=== PATIENT | male | born 1985 | race Caucasian/White ===

== ENCOUNTER 2016-05-10 16:40 | Observation (INO) ==
[2016-05-10] MEDS ORDERED: *HR* LORazepam 2 MG/ML VIAL ONE (16:51)
[2016-05-10] MEDS ORDERED: *HR* LORazepam 2 MG/ML VIAL IM ONE (16:55)
[2016-05-10 17:34] LABS: Basophils # 0.1 K/mcL (0.0-0.2); Basophils % 0.4 %; Eosinophils # 0.2 K/mcL (0.0-0.6); Hematocrit 50.4 % (37.5-50.1); Hemoglobin 15.3 g/dL (12.9-16.9); Immature Granulocytes % 0.7 % (0-4); Lymphocytes % 18.4 %; Mean Corpuscular HGB Conc 30.4 g/dL (31.6-35.5); Mean Corpuscular Hemoglobin 28.7 pg (28.0-33.3); Mean Corpuscular Volume 94.6 fL (83.0-100.0); Mean Platelet Volume 9.5 fL (9.4-12.4); Monocytes # 1.3 K/mcL (0.0-1.3); Monocytes % 7.8 %; Neutrophils # 11.6 K/mcL (1.6-8.9); Platelet Count 378 K/mcL (140-400); Red Blood Count 5.33 M/mcL (4.19-5.50); Red Cell Distribution Width 13.8 % (11.5-14.5); Segmented Neutrophils % 71.7 %
[2016-05-10] MEDS ORDERED: 0.9 % Sodium Chloride 1,000 ML IVC ONE (17:34)
[2016-05-10] MEDS ORDERED: Ketorolac 15 MG/ML VIAL IVP ONE ×2 (17:34→20:49)
[2016-05-10] MEDS ORDERED: Metoclopramide 10 MG/2 ML VIAL IVP ONE (17:34)
[2016-05-10 17:50] LABS: Alanine Aminotransferase 17 Units/L (0-55); Albumin 4.2 g/dL (3.5-5.0); Alkaline Phosphatase 115 Units/L (38-126); Aspartate Amino Transferase 15 Units/L (5-34); BUN/Creatinine Ratio 9 (6-26); Bilirubin,Total 0.3 mg/dL (0.2-1.2); Blood Urea Nitrogen 10 mg/dL (8-26); Calcium 9.3 mg/dL (8.6-10.8); Chloride 103 mEq/L (98-109); Globulin 4.2 g/dL (2.4-3.5); Glucose 121 mg/dL (70-99); Osmolality,Calculated 286 (280-300); Phosphorous 3.7 mg/dL (2.3-4.7); Potassium 4.5 mEq/L (3.5-4.5); Sodium 138 mEq/L (136-145); Total Protein 8.4 g/dL (6.0-8.3); eGFR For African Americans > 60 (> 60); eGFR For Non-African Americans > 60 (> 60)
--- NOTE | 2016-05-10 17:50 | Emergency Department Note ---
Disposition Clinical Impression: Status epilepticus, Lactic acidosis Disposition: Admitted As Inpatient Condition: Fair Referrals: NO,PCP [Primary Care Provider] - Forms: ED Satisfaction Letter Time of Disposition: 19:26 Seizure HPI - General Chief Complaint: ED Seizure Stated Complaint: seizure Source: EMS Limitations: no limitations Nursing Notes Reviewed: Yes Vital Signs Reviewed: Yes - History of Present Illness HPI Narrative: Patient is a 30-year-old male who presents to [facility] [place] ED with a chief complaint of seizure. Family states his seizure lasted about 15- 20 minutes. They did not give him any medication. He has a history of traumatic brain injury in 2012 and epilepsy from this. Family states he has not had a seizure in over 4 months now. He has been particularly stressed out due to recent friend who . Patient was back to his baseline when he arrived to the emergency department. He then had another generalized seizure that lasted approximately 45 minutes that was aborted with 2 mg IM Ativan. Pt Subjective Complaint: seizure Onset (ago): Just SMASHER Description of Episode: tonic-clonic movement Duration of Episode: 20 -: minutes(s) Witnessed: yes - by bystander Associated trauma secondary to event: No Seizure History: known seizure disorder Place: home Possible Precipitating Event: stress Associated symptoms: Reports: diaphoresis. Denies: chest pain, confusion, cough , fever/chills, shortness of breath, weakness Treatments prior to arrival: none - Related Data Home Medications Medication Instructions Recorded Confirmed Paroxetine HCl [Paroxetine] 40 mg PO DAILY 09/03/15 12/31/15 Sumatriptan 1 spray NS AD PRN 09/03/15 12/31/15 Topiramate [Topamax] 250 mg PO DAILY 09/03/15 12/31/15 Ibuprofen [Motrin] 800 mg PO Q8HR PRN 12/31/15 12/31/15 LORazepam [Ativan] 1 mg PO TID PRN 12/31/15 12/31/15 LevETIRAcetam [Levetiracetam] 375 mg PO BID 12/31/15 12/31/15 Methylphenidate HCl [Ritalin LA] 20 mg PO QAM 12/31/15 12/31/15 Ondansetron ODT [Zofran ODT] 4 mg SL Q6HR PRN 12/31/15 12/31/15 Oxycodone HCl/Acetaminophen 1 each PO Q6H PRN 12/31/15 12/31/15 [Percocet 10-325 mg Tablet] Paliperidone [Paliperidone ER] 3 mg PO DAILY 12/31/15 12/31/15 Previous Rx's Medication Instructions Recorded Fentanyl 25 mg TP Q72H #3 patch.td72 09/04/15 Lisinopril [Zestril] 10 mg PO DAILY 30 Days 09/04/15 Metoprolol [Lopressor] 50 mg PO BID 30 Days 09/04/15 Pantoprazole Sodium [Protonix] 40 mg PO DAILY #30 tablet. 03/11/16 Sucralfate [Carafate] 1 gm PO QIDAC #60 tablet 03/11/16 Allergies Allergy/AdvReac Type Severity Reaction Status Date / Time diphenhydramine Allergy Hives Verified 03/11/16 16:30 [From Benadryl] All systems ED: reviewed and negative except as stated. Past Medical History - Past Medical History Attestation: Yes The following information was validated with the patient. Source: patient Medical history: Reports: migraine, seizures, other Surgical history: Reports: colectomy Psychiatric history: Reports: ADHD, depression - Social History Smoking Status: Current every day smoker Smokeless Tobacco Status: No Alcohol use: Reports: none Drug use: Reports: none, marijuana, prescription drug abuse Physical Exam - General Limitations: no limitations General appearance: alert - Head Head exam: atraumatic, normocephalic, normal inspection - Eye Eye exam: Present: normal appearance, PERRL, EOMI - ENT ENT exam: normal exam, normal oropharynx, mucous membranes moist - Neck Neck exam: Present: normal inspection - Chest Chest inspection: Present: normal inspection, symmetric chest wall rise - Cardiovascular Cardiovascular exam: Present: normal rhythm, tachycardia - Abdominal Exam Abdominal exam: Present: soft, Non-Tender. Absent: tenderness, distention, guarding, rebound, rigidity - Extremities Exam Extremities exam: Present: normal inspection, full ROM. Absent: tenderness, pedal edema - Back Exam Back exam: Present: normal inspection, full ROM. Absent: tenderness - Neurological Exam Neurological exam: Present: alert, oriented X3, CN II-XII intact. Absent: motor sensory deficit - Psychiatric Psychiatric exam: Present: normal affect, normal mood - Skin Skin exam: Present: warm, dry, intact, normal color Course Course Narrative: Patient seen and examined. Generalized seizure. Second episode was witnessed in the emergency department. Based on the duration of the first seizure, will workup as status epilepticus. CT head, labs ordered. We will touch base with neurology and likely admit. Patient currently taking aptiom 200 mg BID. - Reevaluation(s) Reevaluation #1: Lab work shows a CO2 of 7, lactic acid of 4.5. We will admit for status epilepticus, lactic acidosis. I spoke with neurologist Dr. Loera who recommends giving him a dose of his home Aptiom 200mg though I called pharmacy and they do not have this available here. We will have to have the family bring in from home given him one. He also recommended 0.5 mg Ativan twice a day , can give patient one this evening. He will consult on the patient. I spoke with hospitalist Carolina English who has accepted patient for admission. Time: 19:25 Vital Signs Temperature 98.7 F 05/10/16 16:41 Pulse Rate 104 05/10/16 16:41 Respiratory Rate 20 05/10/16 16:41 Blood Pressure 133/76 05/10/16 16:41 O2 Sat by Pulse Oximetry 97 05/10/16 16:41 Temperature 98.7 F 05/10/16 16:41 Pulse Rate 89 05/10/16 19:16 Respiratory Rate 18 05/10/16 19:16 Blood Pressure 124/80 05/10/16 19:16 O2 Sat by Pulse Oximetry 100 05/10/16 19:16 Oxygen Delivery Oxygen Delivery Room Air Seizure - Medical Records Medical records reviewed: Yes I reviewed the patient's medical records. - Lab Data Lab results reviewed: Yes I reviewed the patient's lab results. Result diagrams: 05/10/16 17:26 05/10/16 17:26 Lab Results 05/10/16 05/10/16 05/10/16 Range/Units 17:26 17:26 18:11 WBC 16.2 H (4.3-11.1) K/mcL RBC 5.33 (4.19-5.50) M/mcL Hgb 15.3 (12.9-16.9) g/dL Hct 50.4 H (37.5-50.1) % MCV 94.6 (83.0-100.0) fL MCH 28.7 (28.0-33.3) pg MCHC 30.4 L (31.6-35.5) g/dL RDW 13.8 (11.5-14.5) % Plt Count 378 (140-400) K/mcL MPV 9.5 (9.4-12.4) fL Immature Gran % 0.7 (0-4) % Seg Neutrophils % 71.7 % Lymphocytes % 18.4 % Monocytes % 7.8 % Eosinophils % 1.0 % Basophils % 0.4 % Neutrophils # 11.6 H (1.6-8.9) K/mcL Lymphocytes # 3.0 (0.6-4.6) K/mcL Monocytes # 1.3 (0.0-1.3) K/mcL Eosinophils # 0.2 (0.0-0.6) K/mcL Basophils # 0.1 (0.0-0.2) K/mcL Sodium 138 (136-145) mEq/L Potassium 4.5 (3.5-4.5) mEq/L Chloride 103 (98-109) mEq/L Carbon Dioxide 7 L* (19-29) mEq/L BUN 10 (8-26) mg/dL Creatinine 1.13 (0.72-1.25) mg/dL Est GFR ( Amer) > 60 (> 60) Est GFR (Non-Af Amer) > 60 (> 60) BUN/Creatinine Ratio 9 (6-26) Glucose 121 H (70-99) mg/dL Calculated Osmolality 286 (280-300) Lactic Acid 4.1 H* (0.5-2.2) mmol/L Calcium 9.3 (8.6-10.8) mg/dL Phosphorus 3.7 (2.3-4.7) mg/dL Magnesium 3.0 H (1.6-2.6) mg/dL Total Bilirubin 0.3 (0.2-1.2) mg/dL AST 15 (5-34) Units/L ALT 17 (0-55) Units/L Alkaline Phosphatase 115 (38-126) Units/L Creatine Kinase 155 (30-200) Units/L Serum Total Protein 8.4 H (6.0-8.3) g/dL Albumin 4.2 (3.5-5.0) g/dL Globulin 4.2 H (2.4-3.5) g/dL Albumin/Globulin Ratio 1.0 L (1.1-2.2) - Radiology Data Radiology results reviewed: Yes I reviewed the patient's radiology results. Head CT 05/10/16 16:55 IMPRESSION: No acute intracranial abnormality. D/ / Osman Simms MD / Osman Simms MD Interpreting Provider: Osman Simms MD Chest X-Ray 05/10/16 16:57 IMPRESSION: No acute process. D/ / Dorie Garcia MD / Dorie Garcia MD Interpreting Provider: Dorie Garcia MD Critical Care Time Critical Care Time: Yes Total Critical Care Time: 35 Attestation: Critical care time for this patient 35 minutes to manage status epilepticus. Attestation Statement - Attestation Attestation: Patient was seen with resident physician. I reviewed the history, physical, assessment and plan, and agree with the findings. I also personally evaluated this patient and had [id number] time with this patient. 30-year-old male who presents to the emergency department with chief complaint seizures. Patient has a history of seizure disorder, and is known to have tonic-clonic and it sounds seizures. Today he had a tonic-clonic seizure lasting approximately 15 minutes before resolved. There is a prolonged postictal state. Patient also had a seizure upon arrival to the emergency department which lasted 3-4 minutes and was witnessed by staff. After conclusion of seizure patient had a headache. Patient denies fevers or chills or other complaints. These are typical seizures from a side from the length which are significantly longer than they have been in the past. On examination ENT is unremarkable. Heart tachycardic regular rhythm lungs clear. Abdomen soft and nontender extremities unremarkable. Patient was actively seizing on initial evaluation, after completion patient felt significantly better and he did have a prolonged postictal period but mental status eventually returned to normal. He was given 2 mg of IM Ativan and the middle of the seizure. IV was then placed and fluids administered and labs were checked. We will likely admit the patient to the hospital service because of status epilepticus with a seizure lasting 15 minutes ,additionally patient was found to be acidotic. We did discuss this case with neurology prior to admission. They requested that we administer a dose of his current medication. We contacted pharmacy to try to arrange this. We also contacted the hospitalist service to arrange for admission. I agree with the resident physician assessment and plan. Critical care time for this patient 35 minutes.
[2016-05-10 17:57] LABS: Carbon Dioxide 7 mEq/L (19-29)
[2016-05-10 18:45] LABS: Creatine Kinase 155 Units/L (30-200)
[2016-05-10] MEDS ORDERED: Acetaminophen 325 MG TABLET PO ONE (18:46)
[2016-05-10] MEDS ORDERED: Ondansetron 4 MG/2 ML VIAL IVP PRN (20:30)
[2016-05-10] MEDS ORDERED: Naloxone 0.4 MG/ML INJ IVP PRN (20:30)
[2016-05-10] MEDS ORDERED: *HR* LORazepam 2 MG/ML VIAL IVP PRN ×2 (20:37→23:48)
[2016-05-10] MEDS ORDERED: *HR* OxyCODONE/APAP 10/325 TABLET PO PRN (20:50)
[2016-05-10] MEDS ORDERED: *HR* FentaNYL PATCH 25 MCG PATCH TD SCH (21:00)
[2016-05-10 21:28] LABS: Bilirubin,Urine Negative (Negative); Blood,Urine Trace (Negative); Clarity,Urine Cloudy (Clear); Color,Urine Yellow (Yellow); Glucose,Urine (UA) Normal (Normal); Ketones,Urine Negative (Negative); Leukocyte Esterase,Urine Negative (Negative); Nitrite,Urine Negative (Negative); PH,Urine 5.5 pH Units (5.0-8.0); Protein,Urine 30 mg/dL (Neg-Trace); Specific Gravity,Urine 1.022 (1.010-1.025); Urobilinogen,Urine Normal (Normal)
[2016-05-10 21:30] LABS: Bacteria,Urine None Seen per hpf (None-Few); Hyaline Casts,Urine Few per lpf (None-Few); RBC,Urine 0-3 per hpf (0-3); Squamous Epithelial Cell,Urine Many per lpf (None-Few); WBC,Urine 0-3 per hpf (0-3)
[2016-05-10 21:34] LABS: Amphetamine Screen,Urine Negative ng/mL (Cutoff=1000); Barbiturate Screen,Urine Negative ng/mL (Cutoff=200); Benzodiazepines Screen,Urine Negative ng/mL (Cutoff=200); Cannabinoid Screen,Urine Positive ng/mL (Cutoff = 50); Cocaine Screen,Urine Negative ng/mL (Cutoff= 300); Opiate Screen,Urine Negative ng/mL (Cutoff=300); Phencyclidine Screen,Urine Negative ng/mL (Cutoff=25)
[2016-05-10] MEDS ORDERED: Water for inj. (sterile) 10 ML IV ONE (21:38)
[2016-05-10] MEDS: Sucralfate 1 GM TABLET PO SCH (21:45)
[2016-05-10] MEDS: 0.9 % Sodium Chloride 1,000 ML IVC SCH (21:45)
[2016-05-10] MEDS: ESLICARBAZEPINE PO SCH (21:50)
[2016-05-10] MEDS: *HR* LORazepam 2 MG/ML VIAL IVP SCH (21:50)
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
[2016-05-11 01:12] LABS: Basophils % 0.2 %; Eosinophils # 0.1 K/mcL (0.0-0.6); Eosinophils % 0.5 %; Hematocrit 40.5 % (37.5-50.1); Immature Granulocytes % 0.4 % (0-4); Lymphocytes # 3.6 K/mcL (0.6-4.6); Lymphocytes % 25.6 %; Mean Corpuscular HGB Conc 32.3 g/dL (31.6-35.5); Mean Corpuscular Hemoglobin 28.9 pg (28.0-33.3); Mean Corpuscular Volume 89.2 fL (83.0-100.0); Mean Platelet Volume 9.2 fL (9.4-12.4); Monocytes # 1.2 K/mcL (0.0-1.3); Monocytes % 8.8 %; Platelet Count 269 K/mcL (140-400); Red Blood Count 4.54 M/mcL (4.19-5.50); Segmented Neutrophils % 64.5 %
[2016-05-11 01:26] LABS: Hemoglobin 13.1 g/dL (12.9-16.9)
[2016-05-11 01:28] LABS: BUN/Creatinine Ratio 9 (6-26); Blood Urea Nitrogen 8 mg/dL (8-26); Calcium 8.2 mg/dL (8.6-10.8); Carbon Dioxide 24 mEq/L (19-29); Chloride 108 mEq/L (98-109); Glucose 82 mg/dL (70-99); Osmolality,Calculated 285 (280-300); Potassium 4.2 mEq/L (3.5-4.5); Sodium 139 mEq/L (136-145); eGFR For African Americans > 60 (> 60); eGFR For Non-African Americans > 60 (> 60)
[2016-05-11 05:04] LABS: BUN/Creatinine Ratio 9 (6-26); Blood Urea Nitrogen 7 mg/dL (8-26); Calcium 7.7 mg/dL (8.6-10.8); Carbon Dioxide 22 mEq/L (19-29); Chloride 109 mEq/L (98-109); Glucose 88 mg/dL (70-99); Osmolality,Calculated 285 (280-300); Potassium 4.1 mEq/L (3.5-4.5); Sodium 139 mEq/L (136-145); eGFR For African Americans > 60 (> 60); eGFR For Non-African Americans > 60 (> 60)
[2016-05-11] MEDS: 0.9 % Sodium Chloride 1,000 ML IVC SCH (06:15)
[2016-05-11] MEDS ORDERED: SUMATRIPTAN NS PRN (06:55)
[2016-05-11] MEDS ORDERED: *HR* Enoxaparin 40 MG/0.4 ML SYRINGE SQ SCH (07:00)
[2016-05-11 07:09] VITALS: BP 114/70
[2016-05-11] MEDS: *HR* LORazepam 2 MG/ML VIAL IVP SCH (08:13)
[2016-05-11] MEDS: Sucralfate 1 GM TABLET PO SCH (08:13)
[2016-05-11] MEDS: ESLICARBAZEPINE PO SCH (08:14)
[2016-05-11] MEDS ORDERED: Methylphenidate HCl 10 MG TABLET PO SCH (09:00)
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
--- NOTE | 2016-05-11 10:37 | Discharge Summary ---
Date of Encounter: 05/11/16 Time of Encounter: 10:34 - Discharge Diagnosis (1) Tobacco use Priority: Secondary Status: Acute (2) Breakthrough seizure Priority: Primary Status: Acute (3) Generalized seizure Priority: Secondary Status: Acute (4) Lactic acidosis Priority: Secondary Status: Acute (5) Metabolic acidosis Priority: Secondary Status: Acute (6) Depression Priority: Secondary Status: Acute Qualifiers: Depression Type: reactive depression Qualified Code(s): F32.9 - Major depressive disorder, single episode, unspecified (7) History of chronic pain Priority: Secondary Status: Acute - Discharge Medications Prescriptions: Paroxetine HCl [Paroxetine] 40 mg PO DAILY #30 tablet Home Medications: Sumatriptan 1 spray NS AD PRN 09/03/15 [History] Fentanyl 25 mg TP Q72H #3 patch.td72 09/04/15 [Rx] Lisinopril [Zestril] 10 mg PO DAILY 30 Days 09/04/15 [Rx] Metoprolol [Lopressor] 50 mg PO BID 30 Days 09/04/15 [Rx] LORazepam [Ativan] 1 mg PO BID PRN 12/31/15 [History] Methylphenidate HCl [Ritalin LA] 20 mg PO QAM 12/31/15 [History] Oxycodone HCl/Acetaminophen [Percocet 10-325 mg Tablet] 1 each PO Q6H PRN [History] Doxepin HCl 75 mg PO DAILY 05/11/16 [History] Eslicarbazepine Acetate [Aptiom] 200 mg PO DAILY 05/11/16 [History] Multivitamin [Tab-A-Gustavo] 1 tab PO DAILY 05/11/16 [History] Paliperidone [Paliperidone ER] 6 mg PO DAILY 05/11/16 [History] Paroxetine HCl [Paroxetine] 40 mg PO DAILY #30 tablet 05/11/16 [Rx] Allergies/Adverse Reactions: Allergies diphenhydramine [From Benadryl] Allergy (Verified 05/11/16 09:37) Hives Date of admission: 05/10/16 19:32 Primary care physician: PCP NO Consults: 05/10/16 20:42 Consult to Neurology [CONS] Routine Consulting Provider: Neurology [facility] Reason for Consult: 30M with history of seizure disorder, follows with Dr. Loera, here with status epilepticus Call Completed: Yes - Patient Status Disposition: Home, Self-Care Condition: Fair Functional capacity at discharge: independent ambulation Overall status at discharge: patient is back to baseline - Discharge Instructions Follow Up With: LOLI,PCP [Primary Care Provider] - Marion Loera MD [Partnered Physician] - Additional Instructions: Please get an appointment with a psychiatrist to address depression and anxiety as soon as possible. - Diet and Activity Activity: increase activity as tolerated Diet: regular diet Interval History: Patient has been seizure-free overnight. He is asymptomatic. He reports being depressed. I have discussed the case with Dr. Loera who recommended starting antidepressant and continuing antiseizure medication per his prior regimen. The patient was taking Paxil in the past, and reports an adverse reaction to Remeron. I will prescribe Paxil and will discharge him home. I have advised smoking cessation and refraining from using marijuana and I instructed him to get him close appointment with a neurologist and follow-up with psychiatrist for his depression which likely contributed to his breakthrough seizure. Hospital course: Mr. Villarreal is a 30 year old male with history of seizure disorder who presented to the hospital brought by EMS for generalized seizure. While in the emergency department he had a recurrent seizure which was treated with IV Ativan. His workup revealed lactic acidosis. The CT of the head showed no acute findings. He had no evidence of infection. Urine toxicology was positive for marijuana. He was admitted to the medical service. Neurology was consulted and recommended continuing his current seizure medication and no further inpatient workup. He does report some increased emotional stressors and he has suffered with a viral URI both which likely caused him to have a breakthrough seizure. He was advised to follow-up with psychiatry and to continue Paxil. - Time Spent with Patient Total time spent providing and/or coordinating discharge services: - Constitutional Vitals: Temp Pulse Resp BP Pulse Ox 98.0 F 69 16 114/70 96 05/11/16 07:06 05/11/16 07:06 05/11/16 07:06 05/11/16 07:06 05/11/16 07:06 General appearance: Present: A&O X 3, pleasant, no acute distress - Respiratory Respiratory exam: Present: CTAB. Absent: accessory muscle use, rales, rhonchi, wheezes - Cardiovascular Cardiovascular exam: Present: RRR, +S1, +S2. Absent: diastolic murmur, gallop, rubs, systolic murmur
--- NOTE | 2016-05-11 15:38 | Electrocardiograph Report ---
[address] [place], [place] [address] Test Date: 2016-05-10 Pat Name: Lenny Villarreal Department: 105 Room: 3B32 Gender: M Ad Operations Specialist: : [id number] Requested By: Kerline Coates Order Number: [id number] Reading MD: Jag Aguilar MD Measurements Intervals [place] Rate: 103 P: -60 IL: 180 QRS: 21 QRSD: 87 T: 54 QT: 326 QTc: 385 Interpretive Statements ECTOPIC ATRIAL TACHYCARDIA LEFT ATRIAL ENLARGEMENT Electronically Signed On 05-11-2016 15:36:36 EDT by Jag Aguilar MD
== END 2016-05-11 11:35 | disposition home or self-care (01) ==
LOC: EMEROO 16:40 → 3BNU 16:40 → SUATTDRO 19:32 → 3BNU 20:04
PROVIDERS: ADMIT Nurse Practitioner Acute Care; ATTEND Internal Medicine

== ENCOUNTER 2016-10-04 12:00 | Inpatient (IN) ==
[2016-10-04] MEDS ORDERED: *HR* LORazepam 2 MG/ML VIAL ONE (12:36)
[2016-10-04] MEDS ORDERED: levETIRAcetam 1,000 MG in 0.9 % Sodium Chloride 100 ML IVPB ONE (12:46)
[2016-10-04] MEDS ORDERED: 0.9 % Sodium Chloride 1,000 ML IVC ONE (12:48)
[2016-10-04] MEDS ORDERED: Ondansetron 4 MG/2 ML VIAL IVP ONE (12:48)
[2016-10-04 13:12] LABS: Basophils % 0.2 %; Eosinophils % 0.1 %; Hematocrit 55.3 % (37.5-50.1); Hemoglobin 16.8 g/dL (12.9-16.9); Immature Granulocytes % 0.4 % (0-4); Immature Platelets 3.6 % (1.1-6.1); Lymphocytes # 2.4 K/mcL (0.6-4.6); Mean Corpuscular HGB Conc 30.4 g/dL (31.6-35.5); Mean Corpuscular Hemoglobin 26.8 pg (28.0-33.3); Mean Corpuscular Volume 88.3 fL (83.0-100.0); Mean Platelet Volume 10.1 fL (9.4-12.4); Monocytes # 1.8 K/mcL (0.0-1.3); Monocytes % 11.2 %; Neutrophils # 11.6 K/mcL (1.6-8.9); Platelet Count 343 K/mcL (140-400); Red Blood Count 6.26 M/mcL (4.19-5.50); Red Cell Distribution Width 14.6 % (11.5-14.5); Segmented Neutrophils % 73.1 %
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
[2016-10-04 13:25] LABS: BUN/Creatinine Ratio 15 (6-26); Blood Urea Nitrogen 20 mg/dL (8-26); Calcium 10.7 mg/dL (8.6-10.8); Chloride 100 mEq/L (98-109); Glucose 142 mg/dL (70-99); Osmolality,Calculated 301 (280-300); Potassium 3.7 mEq/L (3.5-4.5); Sodium 143 mEq/L (136-145); eGFR For African Americans > 60 (> 60); eGFR For Non-African Americans > 60 (> 60)
[2016-10-04 13:26] LABS: Albumin 5.1 g/dL (3.5-5.0); Bilirubin,Indirect 0.5 mg/dL (0.0-1.2); Bilirubin,Total 0.8 mg/dL (0.2-1.2); Globulin 4.9 g/dL (2.4-3.5)
[2016-10-04] MEDS ORDERED: *HR* LORazepam 2 MG/ML VIAL IM ONE (13:30)
[2016-10-04 13:31] LABS: Bilirubin,Direct 0.3 mg/dL (0.0-0.5)
[2016-10-04 13:35] LABS: Carbon Dioxide 6 mEq/L (19-29)
[2016-10-04] MEDS ORDERED: *HR* Morphine 2 MG/ML SYRINGE IVP ONE ×2 (14:15→18:47)
[2016-10-04 15:54] LABS: Bilirubin,Urine Negative (Negative); Blood,Urine Trace (Negative); Clarity,Urine Clear (Clear); Color,Urine Yellow (Yellow); Glucose,Urine (UA) Normal (Normal); Ketones,Urine >=160 mg/dL (Negative); Leukocyte Esterase,Urine Negative (Negative); Nitrite,Urine Negative (Negative); Protein,Urine 100 mg/dL (Neg-Trace); Specific Gravity,Urine > 1.030 (1.010-1.025); Urobilinogen,Urine Normal (Normal)
[2016-10-04 15:55] LABS: Bacteria,Urine None Seen per hpf (None-Few); Hyaline Casts,Urine None Seen per lpf (None-Few); Squamous Epithelial Cell,Urine Many per lpf (None-Few)
[2016-10-04 16:01] LABS: Amphetamine Screen,Urine Positive ng/mL (Cutoff=1000); Barbiturate Screen,Urine Negative ng/mL (Cutoff=200); Benzodiazepines Screen,Urine Positive ng/mL (Cutoff=200); Cannabinoid Screen,Urine Positive ng/mL (Cutoff = 50); Cocaine Screen,Urine Negative ng/mL (Cutoff= 300); Opiate Screen,Urine Positive ng/mL (Cutoff=300); Phencyclidine Screen,Urine Negative ng/mL (Cutoff=25)
[2016-10-04 16:10] LABS: Sperm,Urine Present
[2016-10-04] MEDS ORDERED: *HR* LORazepam 2 MG/ML VIAL IVP PRN (17:36)
[2016-10-04] MEDS ORDERED: SUMATRIPTAN NS PRN (17:37)
--- NOTE | 2016-10-04 19:28 | Internal Med History&Physical ---
Date of Encounter: 10/04/16 Time of Encounter: 19:24 Assessment and Plan (1) Generalized seizure Current visit: No Status: Acute due to his inability to take his keppra the past 3 days. Patient has been loaded with keppra 1 gm in the ED. We will start the patient on Keppra 750 mg intravenously to 12 hours. Ativan is needed PRN for seizures. Telemetry Monitoring (2) Metabolic acidosis Current visit: No Status: Resolved due to lactic acidosis related to seizure (3) Nausea and vomiting Current visit: Yes Status: Acute Possibly due to gastritis or peptic ulcer disease. We will start the patient on Protonix intravenous. gastroenterology evaluation for EGD Qualifiers: Vomiting type: unspecified Vomiting Intractability: non-intractable Qualified Code(s): R11.2 - Nausea with vomiting, unspecified Internal Medicine - H&P: HPI Chief complaint: vomiting History of present illness: Mr. Villarreal is a 30 year old male with a history of traumatic brain injury with history of seizures last seizure was 2 months ago grand mal seizure on Keppra presents emergency room today with a complete of vomiting. For the past 3 days patient has been having intractable vomiting is unable to keep food down even his medications. He was having occasional small amounts of blood in vomitus. While in the emergency room patient had a grand mal seizure thought to be related to inability to take scupper the past 3 days. Patient started waking up during my interview. he was able to give history. Patient takes nonsteroidal anti-inflammatory drugs intermittently for headaches. Denies any Melena hematochezia. Denies any fevers of chills. No confusion. Past Med Surg Social Fam HX - Past Medical History Medical history: hypertension, migraine, seizures, other Psychiatric history: anxiety, ADHD, depression - Past Surgical History Surgical History: appendectomy, colectomy, orthopedic, other - Social History Smoking Status: Current every day smoker Packs per day: 1 Smokeless Tobacco Status: No Alcohol use: none Drug use: marijuana, prescription drug abuse - Family History Father Adopted: No Living Status: Still Living Hx Family Cardiac Disorders: Yes Mother Adopted: No Living Status: Still Living Hx Family GI Disorders: Yes (LIVER DISEASE) Hx Family Endocrine Disorder: Yes (DM TYPE 2) Internal Medicine - H&P: Meds SUMAtriptan [Sumatriptan] 1 spray NS AD PRN 09/03/15 [History] Lisinopril [Zestril] 10 mg PO DAILY 30 Days 09/04/15 [Rx] Metoprolol [Lopressor] 50 mg PO BID 30 Days 09/04/15 [Rx] Doxepin HCl 75 mg PO DAILY 05/11/16 [History] Eslicarbazepine Acetate [Aptiom] 200 mg PO DAILY 05/11/16 [History] Multivitamin [Tab-A-Gustavo] 1 tab PO DAILY 05/11/16 [History] Paliperidone [Paliperidone ER] 6 mg PO DAILY 05/11/16 [History] LevETIRAcetam [Keppra] 750 mg PO BID 10/04/16 [History] Allergies diphenhydramine [From Benadryl] Allergy (Verified 10/04/16 12:04) Hives All Systems PM: A 10-system review of systems was performed and is negative for pertinent findings except as documented above in the HPI. Review of systems: 10 point review of systems is negative except for HPI - Constitutional Vitals: Temp Pulse Resp BP Pulse Ox 98.4 F 85 17 139/88 99 10/04/16 12:02 10/04/16 17:16 10/04/16 17:16 10/04/16 17:16 10/04/16 17:28 Exam: Gen.: patient is sleepy oriented times 3 cardiac: normal S1 S2 no additional sounds or murmurs chest: no active wheezing or bronchial breathing abdomen soft nontender nondistended normal bowel sounds lower extremity no swelling. Neuro: no new focal deficits Internal Med - H&P Results - Labs CBC & Chem 7: 10/04/16 13:03 10/04/16 13:03
[2016-10-04] MEDS: Pantoprazole 40 MG VIAL IVP SCH (19:54)
[2016-10-04] MEDS: 0.9 % Sodium Chloride 1,000 ML IVC SCH (19:55)
[2016-10-04] MEDS: levETIRAcetam 750 MG in 0.9 % Sodium Chloride 100 ML IVPB SCH (20:55)
[2016-10-04] MEDS: Acetaminophen/Aspirin/Caffeine TABLET PO PRN (21:57)
[2016-10-05] MEDS: *HR* Morphine 2 MG/ML SYRINGE IVP PRN ×5 (00:14→21:11)
[2016-10-05] MEDS: 0.9 % Sodium Chloride 1,000 ML IVC SCH ×3 (04:05→13:00)
[2016-10-05] MEDS: Ondansetron 4 MG/2 ML VIAL IVP PRN ×2 (04:09→21:49)
[2016-10-05 04:17] LABS: BUN/Creatinine Ratio 20 (6-26); Blood Urea Nitrogen 16 mg/dL (8-26); Chloride 103 mEq/L (98-109); Glucose 100 mg/dL (70-99); Magnesium 1.9 mg/dL (1.6-2.6); Osmolality,Calculated 281 (280-300); Potassium 3.3 mEq/L (3.5-4.5); eGFR For African Americans > 60 (> 60); eGFR For Non-African Americans > 60 (> 60)
[2016-10-05 06:06] LABS: Basophils % 0.2 %; Eosinophils % 0.3 %; Hematocrit 40.2 % (37.5-50.1); Immature Granulocytes % 0.3 % (0-4); Immature Platelets 3.5 % (1.1-6.1); Lymphocytes % 29.8 %; Mean Corpuscular HGB Conc 32.3 g/dL (31.6-35.5); Mean Corpuscular Hemoglobin 26.8 pg (28.0-33.3); Mean Corpuscular Volume 82.9 fL (83.0-100.0); Mean Platelet Volume 9.9 fL (9.4-12.4); Monocytes # 1.5 K/mcL (0.0-1.3); Monocytes % 15.2 %; Neutrophils # 5.4 K/mcL (1.6-8.9); Platelet Count 262 K/mcL (140-400); Red Blood Count 4.85 M/mcL (4.19-5.50); Red Cell Distribution Width 14.4 % (11.5-14.5); Segmented Neutrophils % 54.2 %
[2016-10-05 06:16] LABS: Sodium 135 mEq/L (136-145)
[2016-10-05 06:17] LABS: Calcium 8.6 mg/dL (8.6-10.8); Carbon Dioxide 23 mEq/L (19-29)
[2016-10-05] MEDS: Pantoprazole 40 MG VIAL IVP SCH (09:42)
[2016-10-05] MEDS: Multivit/Ca/Min/Fe/FA 1 TAB TABLET PO SCH (09:43)
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
[2016-10-05] MEDS: levETIRAcetam 750 MG in 0.9 % Sodium Chloride 100 ML IVPB SCH ×2 (11:40→21:12)
[2016-10-05] MEDS: Acetaminophen/Aspirin/Caffeine TABLET PO PRN (11:46)
--- NOTE | 2016-10-05 13:31 | Internal Med Progress Note ---
<Charanjit Alonso - Last Filed: 10/05/16 13:29> Date of Encounter: 10/05/16 Time of Encounter: 13:29 - Assessment and plan (1) Generalized seizure Current Visit: No Status: Acute Assessment and plan: Likely related to the patient's inability to take in the setting of continuous nausea and vomiting. Continue IV Keppra until the patient is able to tolerate by mouth medications. No seizure activity since admission. Continue seizure precautions. (2) Nausea and vomiting Current Visit: Yes Status: Acute Assessment and plan: Possibly related to cyclical vomiting syndrome in the setting of marijuana use. Patient does state that he has had some blood in his vomit however it is unclear whether this is coming from his GI tract or could possibly be some blood from his tongue biting or seizure. Gastroenterology has been consulted and will evaluate for possible EGD. Continue daily PPI. Qualifiers: Vomiting type: unspecified Vomiting Intractability: non-intractable Qualified Code(s): R11.2 - Nausea with vomiting, unspecified (3) Abdominal pain Current Visit: Yes Status: Acute Assessment and plan: Likely related to continual vomiting. Appears to be musculoskeletal in nature. CT abdomen and pelvis showed no concerning etiology for left upper quadrant abdominal pain. When necessary morphine for abdominal pain. Continue to monitor. Qualifiers: Abdominal location: epigastric Qualified Code(s): R10.13 - Epigastric pain - Subjective Interval history: Patient seen and examined at bedside. Patient reports nausea and vomiting since admission. He states he is able to keep down sips of water but nothing else. He reports diffuse abdominal pain that is worse in the left upper quadrant. Denies fever, chills, chest pain, shortness of breath. No seizure activity noted since admission. - Constitutional Vitals: Temp Pulse Resp BP Pulse Ox 98.2 F 63 18 125/85 100 10/05/16 11:21 10/05/16 11:21 10/05/16 11:21 10/05/16 11:21 10/05/16 11:21 General appearance: Present: A&O X 3, answers questions appropriately - Respiratory Respiratory exam: Present: CTAB. Absent: rales, rhonchi, wheezes - Cardiovascular Cardiovascular exam: Present: RRR. Absent: gallop, rubs, systolic murmur - GI/Abdominal GI/Abdominal exam: Present: normal bowel sounds, soft, tenderness (diffuse, worse in LUQ), no peritoneal signs. Absent: distended - Extremities Exam Extremities exam: Present: warm. Absent: pedal edema, tenderness - Neurological Exam Neurological exam: Present: alert, CN II-XII intact, oriented X3, no focal deficits. Absent: speech deficit Internal Medicine: Result - Labs CBC & Chem 7: 10/05/16 05:00 10/05/16 05:00 Labs: Short CBC 10/05/16 Range/Units 05:00 WBC 10.0 (4.3-11.1) K/mcL Hgb 13.0 D (12.9-16.9) g/dL Hct 40.2 (37.5-50.1) % Plt Count 262 (140-400) K/mcL Neutrophils # 5.4 (1.6-8.9) K/mcL BMP 10/05/16 05:00 Sodium 135 L D Potassium 3.3 L Chloride 103 Carbon Dioxide 23 D BUN 16 Creatinine 0.81 Glucose 100 H Calcium 8.6 D Consult Discharge Plan - Plan Referrals: Jose Manuel Johnson MD [Primary Care Provider] - 10/13/16 9:45 am Charanjit Valiente MD [Partnered Physician] - 10/14/16 9:00 am Charanjit Burrell DO [Partnered Physician] - 10/12/16 12:15 pm <Rabia Hernandez - Last Filed: 10/05/16 14:59> Date of Encounter: 10/05/16 Time of Encounter: 14:25 - Constitutional Vitals: Temp Pulse Resp BP Pulse Ox 98.2 F 63 18 125/85 100 10/05/16 11:21 10/05/16 11:21 10/05/16 11:21 10/05/16 11:21 10/05/16 11:21 Internal Medicine: Result - Labs CBC & Chem 7: 10/05/16 05:00 10/05/16 05:00 Labs: Short CBC 10/05/16 Range/Units 05:00 WBC 10.0 (4.3-11.1) K/mcL Hgb 13.0 D (12.9-16.9) g/dL Hct 40.2 (37.5-50.1) % Plt Count 262 (140-400) K/mcL Neutrophils # 5.4 (1.6-8.9) K/mcL [facility] 10/05/16 05:00 Sodium 135 L D Potassium 3.3 L Chloride 103 Carbon Dioxide 23 D BUN 16 Creatinine 0.81 Glucose 100 H Calcium 8.6 D - Attending Attestation I examined this patient and my medical decision-making was reviewed with the Resident Physician. I agree with the documented findings, disposition and treatment plan as described except to the extent set forth below. Patient with persistent nausea and vomiting. Most probably due to chronic use of marijuana but rule out other etiologies. Plan is for EGD today <Pedro Miranda - Last Filed: 10/05/16 18:31> Date of Encounter: 10/05/16 - Constitutional Vitals: Temp Pulse Resp BP Pulse Ox 97.7 F 74 18 114/65 98 10/05/16 15:32 10/05/16 15:32 10/05/16 15:32 10/05/16 15:32 10/05/16 15:32 Internal Medicine: Result - Labs CBC & Chem 7: 10/05/16 05:00 10/05/16 05:00 Labs: Short CBC 10/05/16 Range/Units 05:00 WBC 10.0 (4.3-11.1) K/mcL Hgb 13.0 D (12.9-16.9) g/dL Hct 40.2 (37.5-50.1) % Plt Count 262 (140-400) K/mcL Neutrophils # 5.4 (1.6-8.9) K/mcL [facility] 10/05/16 05:00 Sodium 135 L D Potassium 3.3 L Chloride 103 Carbon Dioxide 23 D BUN 16 Creatinine 0.81 Glucose 100 H Calcium 8.6 D - Attending Attestation I examined this patient and my medical decision-making was reviewed with the Resident Physician, Dr. Alonso. I agree with the documented findings, disposition and treatment plan as described except to the extent set forth below. I have independently obtained history and examined the patient and my findings are summarized below: We will continue treatment with IV morphine for pain. IV Zofran. IV Keppra for seizure disorder. He requires inpatient admission due to decreased oral intake and breakthrough seizure which necessitated treatment with IV antiepileptic medication. Risk includes further neurological decline and aspiration as well as respiratory failure. Expected length of stay is 3 days. Expected discharge to home. For review of systems, past medical, family and social history please refer to the original H&P dictated at this facility. There are no changes or updates. The patient is at high risk for morbidity, mortality and complications due to use of IV opiates.
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
[2016-10-05] MEDS ORDERED: *HR* HYDROcodone/Acet 5/325 mg TABLET PO PRN (14:52)
[2016-10-05] MEDS ORDERED: *HR* Midazolam HCl 2 MG/2 ML VIAL ONE (14:54)
[2016-10-06] MEDS: *HR* OxyCODONE/APAP 5/325 TABLET PO PRN ×2 (00:59→13:21)
[2016-10-06] MEDS: 0.9 % Sodium Chloride 1,000 ML IVC SCH (00:59)
[2016-10-06 08:10] LABS: Basophils % 0.5 %; Eosinophils # 0.1 K/mcL (0.0-0.6); Eosinophils % 0.9 %; Hemoglobin 13.3 g/dL (12.9-16.9); Immature Granulocytes % 0.2 % (0-4); Lymphocytes # 3.4 K/mcL (0.6-4.6); Lymphocytes % 41.7 %; Mean Corpuscular HGB Conc 31.7 g/dL (31.6-35.5); Mean Corpuscular Hemoglobin 26.8 pg (28.0-33.3); Mean Corpuscular Volume 84.5 fL (83.0-100.0); Mean Platelet Volume 10.1 fL (9.4-12.4); Monocytes # 1.1 K/mcL (0.0-1.3); Monocytes % 13.7 %; Neutrophils # 3.5 K/mcL (1.6-8.9); Platelet Count 244 K/mcL (140-400); Red Blood Count 4.97 M/mcL (4.19-5.50); Red Cell Distribution Width 14.2 % (11.5-14.5)
[2016-10-06] MEDS: Pantoprazole 40 MG VIAL IVP SCH (08:50)
[2016-10-06] MEDS: Multivit/Ca/Min/Fe/FA 1 TAB TABLET PO SCH (08:50)
[2016-10-06] MEDS: levETIRAcetam 750 MG in 0.9 % Sodium Chloride 100 ML IVPB SCH (08:50)
[2016-10-06 09:04] LABS: BUN/Creatinine Ratio 14 (6-26); Blood Urea Nitrogen 11 mg/dL (8-26); Calcium 8.5 mg/dL (8.6-10.8); Carbon Dioxide 23 mEq/L (19-29); Chloride 108 mEq/L (98-109); Glucose 84 mg/dL (70-99); Osmolality,Calculated 287 (280-300); Potassium 3.9 mEq/L (3.5-4.5); Sodium 139 mEq/L (136-145); eGFR For African Americans > 60 (> 60); eGFR For Non-African Americans > 60 (> 60)
--- NOTE | 2016-10-06 14:27 | Discharge Summary ---
Date of Encounter: 10/06/16 Time of Encounter: 13:00 - Discharge Diagnosis (1) Gastritis Priority: Primary Status: Acute Qualifiers: Gastritis type: other gastritis Chronicity: chronic Gastritis bleeding: without bleeding Qualified Code(s): K29.50 - Unspecified chronic gastritis without bleeding (2) Nausea & vomiting Priority: Primary Status: Acute Qualifiers: Vomiting type: cyclical vomiting Vomiting Intractability: non-intractable Qualified Code(s): G43.A0 - Cyclical vomiting, not intractable (3) Breakthrough seizure Priority: Primary Status: Acute (4) Abdominal pain Priority: Primary Status: Acute Qualifiers: Abdominal location: left upper quadrant Qualified Code(s): R10.12 - Left upper quadrant pain (5) Essential hypertension Priority: Secondary Status: Chronic - Discharge Medications Home Medications: SUMAtriptan [Sumatriptan] 1 spray NS AD PRN 09/03/15 [History] Lisinopril [Zestril] 10 mg PO DAILY 30 Days 09/04/15 [Rx] Metoprolol [Lopressor] 50 mg PO BID 30 Days 09/04/15 [Rx] Doxepin HCl 75 mg PO DAILY 05/11/16 [History] Eslicarbazepine Acetate [Aptiom] 200 mg PO DAILY 05/11/16 [History] Multivitamin [Tab-A-Gustavo] 1 tab PO DAILY 05/11/16 [History] Paliperidone [Paliperidone ER] 6 mg PO DAILY 05/11/16 [History] LevETIRAcetam [Keppra] 750 mg PO BID 10/04/16 [History] Omeprazole [PriLOSEC] 40 mg PO DAILY #30 cap 10/06/16 [Rx] Allergies/Adverse Reactions: Allergies diphenhydramine [From Benadryl] Allergy (Verified 10/04/16 12:04) Hives Date of admission: 10/04/16 15:56 Primary care physician: Jose Manuel Johnson MD Consults: 10/04/16 17:31 Consult to Gastroenterology [CONS] Routine Consulting Provider: Lindsey Melton Reason for Consult: EGD Call Completed: No 10/05/16 12:42 Consult to Interpret Exam [CONS] Routine Consulting Provider: Charanjit Wiseman Consult to Interpret Exam: Interpret EEG Discharging clinician: Sobia C Kavuluri Anticipated date of discharge: 10/06/16 - Patient Status Disposition: Home, Self-Care Condition: Good Functional capacity at discharge: independent ambulation Overall status at discharge: patient is progressing back to baseline - Discharge Instructions Instructions: Omeprazole (By mouth), Gastritis (DC), Gastritis (GEN), Non- epileptic Seizures (DC), Non-epileptic Seizures (GEN) Follow Up With: Jose Manuel Johnson MD [Primary Care Provider] - 10/13/16 9:45 am Charanjit Valiente MD [Partnered Physician] - 10/14/16 9:00 am Charanjit Burrell DO [Partnered Physician] - 10/12/16 12:15 pm - Diet and Activity Activity: resume usual activities as tolerated, other (do not drive until Neurology f/up and seizure-free period of at least 6months) Diet: low fat, low cholesterol, low salt diet Hospital course: Mr. Villarreal is a 30 year old male with history of marijuana use, who was admitted with nausea, vomiting, epigastric and left upper abdominal pain. Initial labs in the emergency room showed mild leukocytosis and minimal elevation in serum lipase. CT abdomen/pelvis showed no gross abnormality. He was given bowel rest, IV hydration and supportive care with when necessary antiemetics and pain control. Patient could not tolerate oral antiepileptics at home due to intractable nausea and vomiting. He was noted to have sustained a breakthrough seizure while in the hospital and continued to receive IV Keppra with no further episodes of seizure. EEG was done and patient is recommended to follow up with neurology as outpatient. GI was consulted and patient underwent EGD, which showed no acute abnormality. Patient is currently able to tolerate oral diet and is medically stable for discharge. He is been counseled to abstain from marijuana use, which is the likely cause for his nausea and vomiting. - Time Spent with Patient Total time spent providing and/or coordinating discharge services: Greater than 30 minutes (40 min) - Constitutional Vitals: Temp Pulse Resp BP Pulse Ox 97.7 F 52 18 122/79 95 10/06/16 11:00 10/06/16 11:00 10/06/16 11:00 10/06/16 11:00 10/06/16 11:00 General appearance: Present: A&O X 3, answers questions appropriately - Respiratory Respiratory exam: Present: CTAB. Absent: accessory muscle use, rales, rhonchi, wheezes - GI/Abdominal GI/Abdominal exam: Present: normal bowel sounds, soft, no peritoneal signs. Absent: distended, tenderness
--- NOTE | 2016-10-06 14:52 | EEG/EMG/Oth Biometrics Report ---
EEG Procedure Report Date of procedure: 10/06/16 EEG Procedure: Routine EEG Procedure Note: .This EEG was acquired with standard international 1020 system with EKG recording. The background EEG activity was characterized by the presence of posterior dominant alpha rhythm with the best frequency up to 10 Hz. The background activity was reactive to eye openings. Sleep stages were characterized by the presence of background fragmentation, vertex waves, K complexes, and sleep spindles. There are no electrographic seizures identified during this tracing. There are no epileptiform discharges and focal slowing noted during this recording. Photic stimulation produced and hyperventilation produced no abnormalities. Hyperventilation efforts appeared adequate due to development of diffuse background slow during and immediately after HV challenge. EKG tracing showed no significant cardiac dysrhythmia. Impression: This is essentially a normal awake and asleep EEG. Clinical Correlation: Normal EEGs, however, do not exclude epilepsy. Clinical correlation is advised.
[2016-10-06 15:32] VITALS: BP 119/68
[2016-10-06] MEDS ORDERED: levETIRAcetam 250 MG TABLET PO SCH (21:00)
== END 2016-10-06 16:15 | disposition home or self-care (01) | DRG 241 ==
LOC: EMEROO 12:00 → 2NENU 12:00 → SUATTDRO 15:56 → 2NENU 17:07
PROVIDERS: ADMIT Nurse Practitioner Family; ATTEND Internal Medicine
PROC: ENDOEBX (2016-10-05 12:15)

== ENCOUNTER 2017-01-07 18:29 | Observation (INO) ==
[2017-01-07] MEDS ORDERED: diazePAM 10 MG/2 ML SYRINGE IM ONE (19:02)
--- NOTE | 2017-01-07 19:08 | Emergency Department Note ---
START Narrative - START START: I examined this patient and my medical decision-making was reviewed with the AIRCRAFT PAINTER APPRENTICE/PA/Advanced Practice Nurse/Resident Physician. I agree with the documented findings, disposition and treatment plan as described except to the extent set forth below. ED attending: Patient's emergency medicine resident Dr. Krishna Durand. Please see copy of this note for H&P evaluation and management and ED disposition. We both had independent [id number] time in contact with this patient. Briefly: A 31-year-old male who I would saw actually on January [address] Neo Norwood, please see a copy of our notes then for details of that encounter. Patient states that he has been experiencing shortness of breath since he was tased on January 01. When we evaluated him on the he was complaining worried that the seizures have increased after he was tased. Olivier walk into the room patient is hyperventilating and otherwise is quiet. Patient is neurologically nonfocal EKG shows no acute ischemic changes Accu- Chek is within normal limits. We do not feel any further imaging or lab work to be instructive informative at this time. Patient will get IM Valium for anxiolysis we will observe patient and anticipated disposition is discharge home with outpatient follow-up. Disposition pending.
--- NOTE | 2017-01-07 19:31 | Emergency Department Note ---
Disposition Clinical Impression: Seizure Disposition: Transfer Intermediate Care Fac Condition: Fair Referrals: Jose Manuel Johnson MD [Primary Care Provider] - Forms: ED Satisfaction Letter Time of Disposition: 21:08 General Adult HPI - General Chief complaint: ED Chest Pain Stated complaint: CP Time Seen by Provider: 01/07/17 18:49 Source: patient Limitations: no limitations Nursing Notes Reviewed: Yes Vital Signs Reviewed: Yes - History of Present Illness HPI Narrative: 31-year-old male with past medical history seizures, was tased by police last Wednesday for combative behavior, presents to the emergency department with concern for having episodes of shortness of breath accompanied by having chest pain, associated with left upper and left lower extremity weakness which is his third visit to the emergency department for. Patient's family states that he is mildly postictal after the incident. They are really concerned because these episodes are getting worse over the last couple days. Patient was given referral to neurology for his seizures. He denies having to set up an appointment. Patient's had CT scans and here in the emergency department which were negative. Patient had an EEG performed in March and this was negative for seizure-like activity. Pain Scale: 10 - Related Data Home Medications Medication Instructions Recorded Confirmed SUMAtriptan [Sumatriptan] 1 spray NS AD PRN 09/03/15 10/04/16 Doxepin HCl 75 mg PO DAILY 05/11/16 10/04/16 Eslicarbazepine Acetate [Aptiom] 200 mg PO DAILY 05/11/16 10/04/16 Multivitamin [Tab-A-Gustavo] 1 tab PO DAILY 05/11/16 10/04/16 Paliperidone [Paliperidone ER] 6 mg PO DAILY 05/11/16 10/04/16 LevETIRAcetam [Keppra] 750 mg PO BID 10/04/16 10/04/16 Previous Rx's Medication Instructions Recorded Lisinopril [Zestril] 10 mg PO DAILY 30 Days tablet 09/04/15 Metoprolol [Lopressor] 50 mg PO BID 30 Days tablet 09/04/15 Omeprazole [PriLOSEC] 40 mg PO DAILY #30 cap 10/06/16 Divalproex (24 HR) [Depakote ER 1,000 mg PO HS #30 tab.er.24h 01/02/17 (24 HR)] Allergies Allergy/AdvReac Type Severity Reaction Status Date / Time diphenhydramine Allergy Hives Verified 01/02/17 04:04 [From Benadryl] All systems ED: reviewed and negative except as stated. Review of Systems: As Per HPI Cardiovascular: Reports: chest pain Respiratory: Reports: dyspnea Gastrointestinal: Denies: nausea, vomiting Neurological: Reports: weakness Past Medical History - Past Medical History Medical history: Reports: hypertension, migraine, seizures, other Surgical history: Reports: appendectomy, colectomy, orthopedic, other Psychiatric history: Reports: anxiety, ADHD, depression - Social History Smoking Status: Current every day smoker Smokeless Tobacco Status: No Alcohol use: Reports: occasionally, recent Drug use: Reports: marijuana, prescription drug abuse Physical Exam General: 31-year-old male who is having episodes of hyperventilation where he does not follow commands, having decreased strength in the left arm and left leg. Head: autraumatic, EOMI, no conjuncitval pallor, no scleral icterus, Mouth: oral mucous membranes moist Neck: neck soft, trachea midline Chest:: Equal chest wall rise Lungs: Normal lungs sounds bilaterally, no wheezes, no respiratory distress Heart: normal heart sounds, normal rate and rhythm, Abdomen: soft, non-tender, no rigidity, no guarding, no rebdound tenderness Lower Extremities: no pedal edema, calves non-tender Integumentary: Skin warm, dry, and intact Neuro: Post episodes: Alert and oriented to person, place, time while not having episodes. GCS 15, cranial nerves II through XII grossly intact, left arm and left leg strength 4 out of 5, 5 out of 5 in the right upper and right lower extremity. Sensation intact throughout. Psych: normal affect, normal mood - General Limitations: no limitations General appearance: alert, anxious Course Vital Signs Temperature 97.8 F 01/07/17 18:33 Pulse Rate 96 01/07/17 18:33 Respiratory Rate 20 01/07/17 18:33 Blood Pressure 165/106 01/07/17 18:33 O2 Sat by Pulse Oximetry 99 01/07/17 18:33 Temperature 97.8 F 01/07/17 18:33 Pulse Rate 96 01/07/17 18:33 Respiratory Rate 20 01/07/17 18:33 Blood Pressure 165/106 01/07/17 18:33 O2 Sat by Pulse Oximetry 99 01/07/17 18:33 Oxygen Delivery Oxygen Delivery Room Air Medical Decision Making - MDM Narrative Medical decision making narrative: 31-year-old male presents to the emergency department with worsening of what he and his family think are seizures ever since being tased by police. He has had extensive workups done here in the emergency department including CT scan, electrocardiograms, lab work and they have all come up negative. Patient was given follow-up with neurology and has not set up an appointment yet. Patient' s family is concerned that his seizures have gotten worse. Patient was having these episodes today while in the emergency department where he would appear to hyperventilate, and he would not be responsive for about 45 seconds to commands. They were then resolved and patient was able to communicate with me and did not reveal any neurologic deficits despite his left lower and left upper extremity weakness. Today, we obtained an electrocardiogram which did not reveal any his ischemic ST changes. Also obtain a troponin and BMP. This did not reveal any abnormalities. Due to risk of extensive radiation, we did not obtain CT scan of this patient's head as he had previously had a negative study done in the last few days. Family expressed their wish to have the patient transferred to another Center for further neurologic evaluation as they wanted further workup for what they thought were these patients worsening of seizures. We contacted [facility] and they agreed to accept the patient. We are currently awaiting bed placement for the patient. Transition of care was given to Dr. Cruz while we are waiting transfer of this patient. Patient was given 5 mg of Valium here in the emergency department. Patient was hemodynamically stable and not in any acute distress at time of transition of care. Vital Signs Temperature 97.8 F 01/07/17 18:33 Pulse Rate 96 01/07/17 18:33 Respiratory Rate 20 01/07/17 18:33 Blood Pressure 165/106 01/07/17 18:33 O2 Sat by Pulse Oximetry 99 01/07/17 18:33 Temperature 97.8 F 01/07/17 18:33 Pulse Rate 96 01/07/17 18:33 Respiratory Rate 20 01/07/17 18:33 Blood Pressure 165/106 01/07/17 18:33 O2 Sat by Pulse Oximetry 99 01/07/17 18:33 Oxygen Delivery Oxygen Delivery Room Air - Medical Records Medical records reviewed: Yes I reviewed the patient's medical records. - Lab Data Result diagrams: 01/07/17 19:48 Lab Results 01/07/17 01/07/17 Range/Units 19:48 19:48 Sodium 140 (136-145) mEq/L Potassium 3.8 (3.5-4.5) mEq/L Chloride 107 (98-109) mEq/L Carbon Dioxide 24 (19-29) mEq/L BUN 7 L (8-26) mg/dL Creatinine 0.80 (0.72-1.25) mg/dL Est GFR ( Amer) > 60 (> 60) Est GFR (Non-Af Amer) > 60 (> 60) BUN/Creatinine Ratio 9 (6-26) Glucose 101 H (70-99) mg/dL Calculated Osmolality 288 (280-300) Calcium 9.7 (8.6-10.8) mg/dL Troponin I 0.01 (0-0.03) ng/mL - EKG Data EKG #1 EKG attestation: Yes I reviewed and interpreted this EKG. EKG results narrative: 18:37 Ventricular rate 5 bpm, DC interval 165 ms, QRS duration 88 ms, QT 337 ms, QTC 379 ms, normal axis deviation. Sinus rhythm with a ventricular rate of 85 bpm. There are no ischemic ST changes noted on this electrocardiogram.
[2017-01-07 20:06] LABS: BUN/Creatinine Ratio 9 (6-26); Blood Urea Nitrogen 7 mg/dL (8-26); Calcium 9.7 mg/dL (8.6-10.8); Carbon Dioxide 24 mEq/L (19-29); Chloride 107 mEq/L (98-109); Glucose 101 mg/dL (70-99); Osmolality,Calculated 288 (280-300); Potassium 3.8 mEq/L (3.5-4.5); Sodium 140 mEq/L (136-145); eGFR For African Americans > 60 (> 60); eGFR For Non-African Americans > 60 (> 60)
[2017-01-07] MEDS ORDERED: diazePAM 10 MG/2 ML SYRINGE IM STA (21:59)
--- NOTE | 2017-01-07 22:18 | Emergency Department Note ---
Disposition Clinical Impression: Seizure Disposition: Transfer Intermediate Care Fac Condition: Fair Referrals: Jose Manuel Johnson MD [Primary Care Provider] - Forms: ED Satisfaction Letter Time of Disposition: 22:52 General Adult HPI - General Chief complaint: ED Chest Pain Stated complaint: CP Time Seen by Provider: 01/07/17 18:49 Source: patient Limitations: no limitations - History of Present Illness Pain Scale: 0 - Related Data Home Medications Medication Instructions Recorded Confirmed Divalproex (24 HR) [Depakote ER 500 mg PO BID 01/07/17 01/07/17 (24 HR)] Allergies Allergy/AdvReac Type Severity Reaction Status Date / Time diphenhydramine Allergy Hives Verified 01/02/17 04:04 [From Benadryl] mirtazapine [From Remeron] AdvReac Hallucinati Verified 01/07/17 22:29 ng Cardiovascular: Reports: chest pain Respiratory: Reports: dyspnea Gastrointestinal: Denies: nausea, vomiting Neurological: Reports: weakness Past Medical History - Past Medical History Medical history: Reports: hypertension, migraine, seizures, other Surgical history: Reports: appendectomy, colectomy, orthopedic, other Psychiatric history: Reports: anxiety, ADHD, depression - Social History Smoking Status: Current every day smoker Smokeless Tobacco Status: No Alcohol use: Reports: occasionally, recent Drug use: Reports: marijuana, prescription drug abuse Physical Exam - General Limitations: no limitations General appearance: alert, anxious Course - Reevaluation(s) Reevaluation #1: A 31-year-old has a previous traumatic brain injury who has been seen here 3 times in the last several days. A CT of the head was negative for acute findings , family states the patient had recurrent seizures has not been acting himself. The patient was seen by Dr. Mao and arrangements were made for transfer to [facility]. However the patient was not accepted by [facility] as they state there was no medical necessity as we have neurology here. It's noted that the patient is currently on Keppra and Depakote however his neurologist here has said that he wants him off the Renninger weaning yet and he is currently on Depakote. Time: 22:14 - Consultations Consultation #1: Discussed with Dr. Efren Burrell neurology he stated to treat any acute seizures with benzodiazepines and they will see the patient tomorrow and make a decision on plans for medication adjustment. Time: 22:49 Consultation #2: Discussed with Dr. Pagan, admit Time: 22:50 Vital Signs Temperature 97.8 F 01/07/17 18:33 Pulse Rate 96 01/07/17 18:33 Respiratory Rate 20 01/07/17 18:33 Blood Pressure 165/106 01/07/17 18:33 O2 Sat by Pulse Oximetry 99 01/07/17 18:33 Temperature 97.8 F 01/07/17 18:33 Pulse Rate 85 01/07/17 21:30 Respiratory Rate 16 01/07/17 21:30 Blood Pressure 143/88 01/07/17 21:30 O2 Sat by Pulse Oximetry 96 01/07/17 21:30 Oxygen Delivery Oxygen Delivery Room Air Medical Decision Making - Lab Data Result diagrams: 01/07/17 19:48 Lab Results 01/07/17 01/07/17 Range/Units 19:48 19:48 Sodium 140 (136-145) mEq/L Potassium 3.8 (3.5-4.5) mEq/L Chloride 107 (98-109) mEq/L Carbon Dioxide 24 (19-29) mEq/L BUN 7 L (8-26) mg/dL Creatinine 0.80 (0.72-1.25) mg/dL Est GFR ( Amer) > 60 (> 60) Est GFR (Non-Af Amer) > 60 (> 60) BUN/Creatinine Ratio 9 (6-26) Glucose 101 H (70-99) mg/dL Calculated Osmolality 288 (280-300) Calcium 9.7 (8.6-10.8) mg/dL Troponin I 0.01 (0-0.03) ng/mL
[2017-01-07] MEDS ORDERED: Ibuprofen 600 MG TABLET PO ONE (23:21)
[2017-01-08] MEDS ORDERED: *HR* LORazepam 2 MG/ML VIAL IVP PRN (00:05)
[2017-01-08] MEDS ORDERED: Valproic Acid INJ 1,000 MG in 0.9 % Sodium Chloride 100 ML IVPB ONE (00:07)
[2017-01-08] MEDS ORDERED: *HR* HYDROcodone/Acet 5/325 mg TABLET PO PRN (00:08)
--- NOTE | 2017-01-08 00:13 | Internal Med History&Physical ---
Date of Encounter: 01/08/17 Time of Encounter: 00:11 Assessment and Plan (1) Generalized seizure Current visit: No Status: Acute Family noticed increased frequency of seizures and they are linking this to the patient being tazed by police. However his Depakote level is sub-therapeutic. We load the patient with Depakote 1 g intravenously. Continue his own dose. Check EEG. Ativan for breakthrough seizures. Check urine drug screen. Patient had a CT scan of the head 3 days ago that was unremarkable. Appreciate neurology input Internal Medicine - H&P: HPI Chief complaint: seizure History of present illness: Mr. Villarreal is a 31 year old male patient with history of traumatic brain injury and seizures presents the emergency room for the 3rd time today because of concern seizures. Patient mentioned that he was teased by the police on Wednesday01/01/2017 and since then has been noticing increased frequency of seizures. He mentioned that he had a seizure then the same day and a seizure yesterday. Family mentioned the seizures were generalized, lasting for 2 to 3 minutes. However they mentioned that this was the 1st time he has not had any urine incontinence after seizure. However he was postsurgical for approximately 20 minutes. He noted that left lower extremity slightly weaker than the right. No fever or chills. He denies alcohol intake. He denies illicit drug use. Past Med Surg Social Fam HX - Past Medical History Medical history: hypertension, migraine, seizures, other Psychiatric history: anxiety, ADHD, depression - Past Surgical History Surgical History: appendectomy, colectomy, orthopedic, other - Social History Smoking Status: Current every day smoker Smokeless Tobacco Status: No Alcohol use: occasionally, recent Drug use: marijuana, prescription drug abuse - Family History Father Adopted: No Living Status: Still Living Hx Family Cardiac Disorders: Yes Mother Adopted: No Living Status: Still Living Hx Family GI Disorders: Yes (LIVER DISEASE) Hx Family Endocrine Disorder: Yes (DM TYPE 2) Internal Medicine - H&P: Meds Divalproex (24 HR) [Depakote ER (24 HR)] 500 mg PO BID 01/07/17 [History] 3 Allergy/AdvReac Type Severity Reaction Status Date / Time diphenhydramine Allergy Hives Verified 01/02/17 04:04 [From Benadryl] mirtazapine [From Remeron] AdvReac Hallucinati Verified 01/07/17 22:29 ng All Systems PM: A 10-system review of systems was performed and is negative for pertinent findings except as documented above in the HPI. Review of systems: 10 point review of systems is negative except for HPI - Constitutional Vitals: Temp Pulse Resp BP Pulse Ox 98 F 62 16 139/91 99 01/07/17 23:33 01/07/17 23:33 01/07/17 23:33 01/07/17 23:33 01/07/17 23:33 Exam: General: Patient is A&O X3 Cardiac: normal S1, S2, no additional sounds or murmurs Chest: Clear to auscultation bilaterally Abdomen: soft, nontender, non distended, normal BS. Neuro: No focal deficits Internal Med - H&P Results - Labs CBC & Chem 7: 01/07/17 19:48
[2017-01-08] MEDS ORDERED: Divalproex (12 HR) 500 MG TABLET PO SCH ×2 (00:15→06:00)
[2017-01-08] MEDS ORDERED: Ketorolac 15 MG/ML VIAL IVP ONE (01:29)
[2017-01-08 02:22] LABS: Amphetamine Screen,Urine Negative ng/mL (Cutoff=1000); Barbiturate Screen,Urine Negative ng/mL (Cutoff=200); Benzodiazepines Screen,Urine Positive ng/mL (Cutoff=200); Cannabinoid Screen,Urine Positive ng/mL (Cutoff = 50); Cocaine Screen,Urine Negative ng/mL (Cutoff= 300); Opiate Screen,Urine Negative ng/mL (Cutoff=300); Phencyclidine Screen,Urine Negative ng/mL (Cutoff=25)
[2017-01-08 03:34] VITALS: BP 139/84
[2017-01-08 04:49] LABS: Basophils % 0.3 %; Eosinophils # 0.2 K/mcL (0.0-0.6); Eosinophils % 1.7 %; Hematocrit 43.6 % (37.5-50.1); Hemoglobin 14.1 g/dL (12.9-16.9); Immature Granulocytes % 0.3 % (0-4); Lymphocytes # 3.1 K/mcL (0.6-4.6); Lymphocytes % 30.4 %; Mean Corpuscular HGB Conc 32.3 g/dL (31.6-35.5); Mean Corpuscular Hemoglobin 28.4 pg (28.0-33.3); Mean Corpuscular Volume 87.9 fL (83.0-100.0); Mean Platelet Volume 10.6 fL (9.4-12.4); Monocytes # 0.8 K/mcL (0.0-1.3); Monocytes % 7.9 %; Platelet Count 285 K/mcL (140-400); Red Blood Count 4.96 M/mcL (4.19-5.50); Segmented Neutrophils % 59.4 %
[2017-01-08 05:19] LABS: BUN/Creatinine Ratio 6 (6-26); Blood Urea Nitrogen 5 mg/dL (8-26); Calcium 9.1 mg/dL (8.6-10.8); Carbon Dioxide 24 mEq/L (19-29); Chloride 107 mEq/L (98-109); Glucose 92 mg/dL (70-99); Osmolality,Calculated 293 (280-300); Potassium 3.8 mEq/L (3.5-4.5); Sodium 143 mEq/L (136-145); eGFR For African Americans > 60 (> 60); eGFR For Non-African Americans > 60 (> 60)
[2017-01-08] MEDS ORDERED: Ondansetron 4 MG/2 ML VIAL IVP PRN (06:25)
--- NOTE | 2017-01-08 07:21 | Neurology - Consult Note ---
Date of Encounter: 01/08/17 Time of Encounter: 07:07 Assessment and Plan (1) Breakthrough seizure Current Visit: No Status: Acute Pt. left AMA without being examined. History of Present Illness HPI: Mr. Villarreal is a 31 year old male who has been seen in the ED 3 consecutive nights for "seizures" is also seen and treated by Dr. Loera's been manipulating his seizure medications. Apparently he was taken off Keppra and started on Depakote. He spoke to be taking 500 mg twice a day. His Depakote level at admission was 14. The increase in seizure activity apparently started after he was "tazed" by police" several nights ago. Apparently he had seen this gentleman at some point in time the past and suspected perhaps posttraumatic seizures vs.nonepileptic seizures. 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 In any regard, patient and his girlfriend became confrontational and started cussing when I suggested non-epileptic seizures. Pt. asked me to leave and attempted to leave the hospital with his IV still in. He had to be chased down the franks by nursing so that his IV could be removed. Pt. left without allowing me to complete my assessment. Past Med Surg Social Fam HX - Past Medical History Medical history: hypertension, migraine, seizures, other Psychiatric history: anxiety, ADHD, depression, schizophrenia - Past Surgical History Surgical History: appendectomy, colectomy, orthopedic, other - Social History Smoking Status: Current every day smoker Packs per day: 0.5 Smokeless Tobacco Status: No Alcohol use: none Drug use: marijuana - Family History Father Adopted: No Living Status: Still Living Hx Family Cardiac Disorders: Yes Mother Adopted: No Living Status: Still Living Hx Family GI Disorders: Yes (LIVER DISEASE) Hx Family Endocrine Disorder: Yes (DM TYPE 2) Medications and Allergies Divalproex (24 HR) [Depakote ER (24 HR)] 500 mg PO BID 01/07/17 [History] 3 Allergy/AdvReac Type Severity Reaction Status Date / Time diphenhydramine Allergy Hives Verified 01/02/17 04:04 [From Benadryl] mirtazapine [From Remeron] AdvReac Hallucinati Verified 01/07/17 22:29 ng All Systems: A 10-system review of systems was performed and is negative for pertinent findings except as documented above in the HPI. Physical Examination - Vital Signs Vital Signs: Initial Vital Signs Temp Pulse Resp BP Pulse Ox 97.8 F 96 20 165/106 99 01/07/17 18:33 01/07/17 18:33 01/07/17 18:33 01/07/17 18:33 01/07/17 18:33 - Exam Exam: Pt. left prior to being examined Results - Laboratory Findings CBC and BMP: 01/08/17 03:42 01/08/17 03:42 Abnormal lab findings: Abnormal lab results RDW 15.0 % (11.5-14.5) H 01/08/17 03:42 BUN 5 mg/dL (8-26) L 01/08/17 03:42 Valproic Acid 14.00 mcg/mL (50-100) L 01/07/17 19:48 U Benzodiazepines Scrn Positive ng/mL (Rrawgv=[id number]) H 01/08/17 01:49 U Marijuana (THC) Screen Positive ng/mL (Cutoff = 50) H 01/08/17 01:49 Consult Discharge Plan - Plan Referrals: Jose Manuel Johnson MD [Primary Care Provider] -
--- NOTE | 2017-01-08 11:00 | Event Note ---
Date of Encounter: 01/08/17 Time of Encounter: 07:15 Pt left AMA prior to me seeing him.
--- NOTE | 2017-01-08 19:09 | Electrocardiograph Report ---
[place] [id number] Test Date: 2017-01-07 Pat Name: Lenny Villarreal Department: 104 Room: 3B Gender: M Installation Coordinator: : 1985 Requested By: Marya See Order Number: [id number] Reading MD: Jag Aguilar MD Measurements Intervals Valentine Rate: 85 P: 72 AL: 165 QRS: 38 QRSD: 88 T: 71 QT: 337 QTc: 379 Interpretive Statements SINUS RHYTHM Electronically Signed On 01-08-2017 19:07:55 EST by Jag Aguilar MD
== END 2017-01-08 07:01 | disposition left against medical advice (07) ==
LOC: EMEROO 18:29 → 3BNU 18:29
PROVIDERS: ADMIT Hospitalist; ATTEND Registered Nurse

== ENCOUNTER 2017-10-14 17:23 | Inpatient (IN) ==
[2017-10-14] MEDS ORDERED: Isovue-370 500 ML INFUS..BTL IV ONE ×2 (17:32→19:27)
[2017-10-14] MEDS ORDERED: 0.9 % Sodium Chloride 1,000 ML IVC ONE ×2 (17:33→19:26)
[2017-10-14] MEDS ORDERED: Ondansetron 4 MG/2 ML VIAL IVP ONE (17:33)
[2017-10-14 17:43] LABS: Basophils % 0.2 %; Hematocrit 46.8 % (37.5-50.1); Hemoglobin 15.8 g/dL (12.9-16.9); Immature Granulocytes % 0.4 % (0-4); Lymphocytes # 1.3 K/mcL (0.6-4.6); Lymphocytes % 7.3 %; Mean Corpuscular HGB Conc 33.8 g/dL (31.6-35.5); Mean Corpuscular Hemoglobin 28.4 pg (28.0-33.3); Mean Platelet Volume 9.1 fL (9.4-12.4); Monocytes # 1.6 K/mcL (0.0-1.3); Monocytes % 8.9 %; Neutrophils # 15.2 K/mcL (1.6-8.9); Platelet Count 405 K/mcL (140-400); Red Blood Count 5.57 M/mcL (4.19-5.50); Red Cell Distribution Width 15.6 % (11.5-14.5); Segmented Neutrophils % 83.2 %
[2017-10-14] MEDS ORDERED: Ondansetron 4 MG/2 ML VIAL ONE (17:43)
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
[2017-10-14 18:00] LABS: Alanine Aminotransferase 31 Units/L (7-52); Albumin 5.2 g/dL (3.5-5.7); Albumin/Globulin Ratio 1.9 (1.1-2.2); Alkaline Phosphatase 92 Units/L (34-104); Aspartate Amino Transferase 24 Units/L (13-39); BUN/Creatinine Ratio 18 (6-26); Bilirubin,Total 0.6 mg/dL (0.3-1.0); Blood Urea Nitrogen 16 mg/dL (6-20); Calcium 9.9 mg/dL (8.6-10.3); Carbon Dioxide 25 mEq/L (23-29); Chloride 101 mEq/L (98-107); Globulin 2.7 g/dL (2.4-3.5); Glucose 110 mg/dL (70-105); Lipase 96 Units/L (11-82); Osmolality,Calculated 288 (280-300); Potassium 3.8 mEq/L (3.5-5.1); Sodium 138 mEq/L (136-145); Total Protein 7.9 g/dL (6.4-8.9); eGFR For Non-African Americans > 60 (> 60)
[2017-10-14 18:21] LABS: Bilirubin,Urine Negative (Negative); Blood,Urine Negative (Negative); Clarity,Urine Clear (Clear); Color,Urine Yellow (Yellow); Glucose,Urine (UA) Normal (Normal); Ketones,Urine 40 mg/dL (Negative); Leukocyte Esterase,Urine Negative (Negative); Nitrite,Urine Negative (Negative); Protein,Urine Trace mg/dL (Neg-Trace); Specific Gravity,Urine > 1.030 (1.010-1.025); Urobilinogen,Urine Normal (Normal)
[2017-10-14 18:25] LABS: Bacteria,Urine None Seen per hpf (None-Few); Hyaline Casts,Urine None Seen per lpf (None-Few); RBC,Urine 0-3 per hpf (0-3); Squamous Epithelial Cell,Urine Few per lpf (None-Few); WBC,Urine 0-3 per hpf (0-3)
--- NOTE | 2017-10-14 18:47 | Emergency Department Note ---
Disposition Clinical Impression: Generalized abdominal pain Disposition: Still a Patient Forms: ED Satisfaction Letter, Work/School Release General Adult HPI - General Chief complaint: ED General Medical Stated complaint: abd pain/seizures Time Seen by Provider: 10/14/17 17:30 Source: patient Limitations: no limitations - History of Present Illness Pain Scale: 6 - Related Data Home Medications Medication Instructions Recorded Confirmed Divalproex (24 HR) [Depakote ER 500 mg PO BID 01/07/17 01/07/17 (24 HR)] Previous Rx's Medication Instructions Recorded Acetaminophen w/Cod 300-30 mg 1 each PO Q6HR PRN 5 Days #15 04/19/17 [Tylenol w/Codeine #3] tablet Esomeprazole Magnesium [Nexium 20 mg PO DAILY #30 tablet. 04/19/17 24Hr] Promethazine [Phenergan] 25 mg PO Q6HR PRN #12 tablet 04/19/17 HydrOXYzine Pamoate [Vistaril] 50 mg PO TID PRN 5 Days #15 capsule 05/01/17 LORazepam [Ativan] 1 mg PO BID 3 Days #6 tablet 05/13/17 Dicyclomine [Bentyl] 10 mg PO QID PRN #12 capsule 06/28/17 Ondansetron ODT [Zofran ODT] 4 mg SL Q4HR PRN #6 tab.rapdis 06/28/17 Allergies Allergy/AdvReac Type Severity Reaction Status Date / Time diphenhydramine Allergy Hives Verified 06/05/17 16:19 [From Benadryl] mirtazapine [From Remeron] AdvReac Hallucinati Verified 06/05/17 16:19 ng Past Medical History - Past Medical History Medical history: Reports: hypertension, migraine, seizures Surgical history: Reports: appendectomy, colectomy, orthopedic, other Psychiatric history: Reports: anxiety, ADHD, depression, schizophrenia - Social History Smoking Status: Current every day smoker Smokeless Tobacco Status: No Alcohol use: Reports: none Drug use: Reports: marijuana Physical Exam - General Limitations: no limitations General appearance: alert, in no apparent distress Course - Reevaluation(s) Reevaluation #1: Attestation note: Patient was seen with the emergency medicine resident/nurse practitioner/ physician freezer assistant/transitional resident/medical student: Dr. Fátima Peña I have personally performed a face to face evaluation on this patient. I have reviewed and agree with history and physical examination patient management and disposition. Briefly the salient points of the case are as follows: 31-year-old male history of seizure disorder comes in with epigastric abdominal pain and unable and vomiting for the past 23 days of fevers chills no dysuria and no flank pain is diffusely tender abdominopelvic CT is pending screening labs patient getting analgesics IV fluids and antiemetics. Disposition pending Time: 18:18 Vital Signs Temperature 99.2 F 10/14/17 17:25 Pulse Rate 90 10/14/17 17:25 Respiratory Rate 18 10/14/17 17:25 Blood Pressure 173/92 10/14/17 17:25 O2 Sat by Pulse Oximetry 100 10/14/17 17:25 Temperature 99.2 F 10/14/17 17:25 Pulse Rate 90 10/14/17 17:25 Respiratory Rate 18 10/14/17 17:25 Blood Pressure 173/92 10/14/17 17:25 O2 Sat by Pulse Oximetry 100 10/14/17 17:25 Oxygen Delivery Oxygen Delivery Room Air Medical Decision Making - Lab Data Result diagrams: 10/14/17 17:26 10/14/17 17:26 Lab Results 10/14/17 10/14/17 Range/Units 17:26 17:26 WBC 18.3 H (4.3-11.1) K/mcL RBC 5.57 H (4.19-5.50) M/mcL Hgb 15.8 (12.9-16.9) g/dL Hct 46.8 (37.5-50.1) % MCV 84.0 (83.0-100.0) fL MCH 28.4 (28.0-33.3) pg MCHC 33.8 (31.6-35.5) g/dL RDW 15.6 H (11.5-14.5) % Plt Count 405 H (140-400) K/mcL MPV 9.1 L (9.4-12.4) fL Immature Gran % 0.4 (0-4) % Seg Neutrophils % 83.2 % Lymphocytes % 7.3 % Monocytes % 8.9 % Eosinophils % 0.0 % Basophils % 0.2 % Neutrophils # 15.2 H (1.6-8.9) K/mcL Lymphocytes # 1.3 (0.6-4.6) K/mcL Monocytes # 1.6 H (0.0-1.3) K/mcL Eosinophils # 0.0 (0.0-0.6) K/mcL Basophils # 0.0 (0.0-0.2) K/mcL Sodium 138 (136-145) mEq/L Potassium 3.8 (3.5-5.1) mEq/L Chloride 101 (98-107) mEq/L Carbon Dioxide 25 (23-29) mEq/L BUN 16 (6-20) mg/dL Creatinine 0.87 (0.70-1.30) mg/dL Est GFR ( Amer) > 60 (> 60) Est GFR (Non-Af Amer) > 60 (> 60) BUN/Creatinine Ratio 18 (6-26) Glucose 110 H (70-105) mg/dL Calculated Osmolality 288 (280-300) Calcium 9.9 (8.6-10.3) mg/dL Total Bilirubin 0.6 (0.3-1.0) mg/dL AST 24 (13-39) Units/L ALT 31 (7-52) Units/L Alkaline Phosphatase 92 (34-104) Units/L Serum Total Protein 7.9 (6.4-8.9) g/dL Albumin 5.2 (3.5-5.7) g/dL Globulin 2.7 (2.4-3.5) g/dL Albumin/Globulin Ratio 1.9 (1.1-2.2) Lipase 96 H (11-82) Units/L
[2017-10-15] MEDS ORDERED: Ondansetron 4 MG/2 ML VIAL IVP PRN (00:19)
[2017-10-15] MEDS ORDERED: Naloxone 0.4 MG/ML INJ IVP PRN (00:19)
[2017-10-15] MEDS ORDERED: OXYCODONE Oral CONC 10 MG/0.5 ML ORAL.SYG SL PRN (00:19)
[2017-10-15] MEDS: OXYCODONE Oral CONC 10 MG/0.5 ML ORAL.SYG SL PRN ×3 (01:16→15:00)
[2017-10-15 05:19] LABS: Hematocrit 45.7 % (37.5-50.1); Mean Corpuscular HGB Conc 32.8 g/dL (31.6-35.5); Mean Corpuscular Hemoglobin 28.3 pg (28.0-33.3); Mean Corpuscular Volume 86.2 fL (83.0-100.0); Platelet Count 376 K/mcL (140-400); Red Cell Distribution Width 15.1 % (11.5-14.5)
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
--- NOTE | 2017-10-15 06:54 | Event Note ---
Date of Encounter: 10/15/17 Time of Encounter: 06:00 Patient had a rapid response called to his room for apparent seizure. Seizure lasted 15 seconds, apparently tonic-clonic and different from what was described as his seizures of the last few days. 2mg ativan given after seizure ended to help prevent further activity. Neurology consult for this morning for recommendations on what to give while he is NPO for pancreatitis treatment.
[2017-10-15 07:21] LABS: BUN/Creatinine Ratio 18 (6-26); Blood Urea Nitrogen 13 mg/dL (6-20); Calcium 8.9 mg/dL (8.6-10.3); Carbon Dioxide 22 mEq/L (23-29); Chloride 104 mEq/L (98-107); Glucose 100 mg/dL (70-105); Osmolality,Calculated 286 (280-300); Potassium 3.8 mEq/L (3.5-5.1); Sodium 138 mEq/L (136-145); eGFR For Non-African Americans > 60 (> 60)
--- NOTE | 2017-10-15 08:25 | Electrocardiograph Report ---
[address] [address] Test Date: 2017-10-14 Pat Name: Lenny Villarreal Department: Room: 3B12 Gender: M Portfolio Accountant: : 1985 Requested By: Fátima Peña Order Number: [id number] Reading MD: Zenon Restrepo Measurements Intervals [place] Rate: 89 P: 67 CA: 156 QRS: 20 QRSD: 96 T: 58 QT: 368 QTc: 448 Interpretive Statements SINUS RHYTHM WITH SINUS ARRHYTHMIA Electronically Signed On 10-15-2017 8:23:33 EDT by Zenon Restrepo
--- NOTE | 2017-10-15 08:26 | Electrocardiograph Report ---
[address] [address] Test Date: 2017-10-14 Pat Name: Lenny Villarreal Department: Room: 3B12 Gender: M Healthcare Specialist: : 1985 Requested By: Osman Daniels Order Number: [id number] Reading MD: Zenon Restrepo Measurements Intervals [place] Rate: 71 P: 0 VA: 155 QRS: 18 QRSD: 89 T: 62 QT: 391 QTc: 425 Interpretive Statements SINUS RHYTHM WITH SINUS ARRHYTHMIA Electronically Signed On 10-15-2017 8:25:04 EDT by Zenon Restrepo
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
[2017-10-15] MEDS ORDERED: *HR* LORazepam 2 MG/ML VIAL IVP PRN ×3 (13:37)
[2017-10-15 13:59] LABS: Amphetamine Screen,Urine Negative ng/mL (Cutoff=1000); Barbiturate Screen,Urine Negative ng/mL (Cutoff=200); Benzodiazepines Screen,Urine Positive ng/mL (Cutoff=200); Cannabinoid Screen,Urine Positive ng/mL (Cutoff = 50); Cocaine Screen,Urine Negative ng/mL (Cutoff= 300); Opiate Screen,Urine Negative ng/mL (Cutoff=300); Phencyclidine Screen,Urine Negative ng/mL (Cutoff=25)
--- NOTE | 2017-10-15 15:35 | EEG/EMG/Oth Biometrics Report ---
EEG Procedure Report Date of procedure: 10/15/17 EEG Procedure: Routine EEG Procedure Note: This is a report of a 21 channel bipolar and referential montage EEG. There is no posterior dominant alpha rhythm identified during the recording. From the outset of the recording the patient is in a state of drowsiness is recognized by lack of a posterior dominant alpha rhythm and the presence of mixed theta and alpha frequencies anteriorly. The patient then progresses onto stage II sleep as evidenced by the presence of vertex activity K complexes and sleep spindles. The subject remains and stage II sleep throughout the duration of the recording. Hyperventilation is not performed in recording. Photic stimulations performed and does produce a symmetric driving response. The EKG rhythm strip reveals normal sinus rhythm at 84 beats per minute. Impressions this EEG recording is within normal limits. There is no evidence of epileptiform activity identified during the study. Comment: A normal EEG does not preclude a diagnosis of seizure or epilepsy. If the clinical suspicion for seizure activity is high, serial EEGs or perhaps a prolonged recording may increase the yield. Please correlate clinically.
[2017-10-15 18:43] VITALS: BP 158/85
[2017-10-15] MEDS ORDERED: *HR* LORazepam 2 MG/ML VIAL IVP ONE (20:55)
--- NOTE | 2017-10-15 21:08 | Event Note ---
Date of Encounter: 10/15/17 Time of Encounter: 20:50 Alerted by pts. nurse that pt. was wanting to leave AMA. Went to see pt. who was seated in chair w/his mother in the room. Pt. states that he is sick of hearing call lights, the clock in his room, and other noises. I explained to the pt. that he had a 15-second tonic-clonic seizure this a.m. which required a rapid response. Apparently his mother wasn't aware of the seizure severity. I explained to the pt. that he needs to stay for further monitoring for his seizures as well as his pancreatitis. Pt. states that he doesn't want to stay. Pt. also has a positive tox screen for inserted acid pains and marijuana and ethyl alcohol level of 15 today. I again explained that the pt. was high risk for further morbidity d/t pancreatitis, continued seizures, and increased risk for injury if he had a seizure resulting in a fall w/head injury or bleed. Pts. mother stated that it is his decision and that he has left multiple times AMA. I asked the pt. if he understood the risks and dangers I posed to him and he said yes. He stated if something happened then someone would take him to [facility]. Instructed pts. nurse to have pt. sign AMA paperwork.
== END 2017-10-15 20:56 | disposition left against medical advice (07) | DRG 282 ==
LOC: 3BNU 17:23 → EMEROOARM 17:23 → 3BNU 21:57
PROVIDERS: ADMIT Family Medicine; ATTEND Family Medicine

== ENCOUNTER 2018-05-31 21:06 | Inpatient (IN) ==
[2018-05-31] MEDS ORDERED: 0.9 % Sodium Chloride 1,000 ML IVC ONE (21:11)
[2018-05-31] MEDS ORDERED: *HR* LORazepam 2 MG/ML VIAL IVP ONE ×2 (21:11→21:49)
--- NOTE | 2018-05-31 21:16 | Emergency Department Note ---
Disposition Clinical Impression: Generalized seizure Epileptic seizure Qualifiers: Epilepsy type: unspecified Intractability: not intractable Status epilepticus: with status epilepticus Qualified Code(s): G40.901 - Epilepsy, unspecified, not intractable, with status epilepticus Disposition: Admitted As Inpatient Condition: Undetermined Time of Disposition: 23:13 Altered Mental Status HPI - General Chief Complaint: ED Seizure Stated Complaint: seizures Time Seen by Provider: 05/31/18 21:10 Source: patient, EMS Mode of arrival: EMS Limitations: altered mental status Nursing Notes Reviewed: Yes Vital Signs Reviewed: Yes - History of Present Illness HPI Narrative: 32 year old male with Hx of seizures arrives to the ED after experiencing what was witnessed as a potential seizures. Arrives to the ED ltered and what appears to be post-ictal. He is tachycardic, restless. unable to answer questions but is following commands. - Related Data Home Medications Medication Instructions Recorded Confirmed Lacosamide [Vimpat] 150 mg PO Q12H 10/14/17 10/14/17 Previous Rx's Medication Instructions Recorded Promethazine [Phenergan] 25 mg PO Q8HR #7 tablet 12/14/17 Benzonatate [Tessalon] 100 mg PO TID #15 capsule 03/15/18 Ondansetron HCl [Zofran] 8 mg PO Q8HR PRN #10 tab 03/15/18 Ondansetron ODT [Zofran ODT] 4 mg SL Q6HR PRN #8 tab.rapdis 03/21/18 Allergies Allergy/AdvReac Type Severity Reaction Status Date / Time diphenhydramine Allergy Hives Verified 06/05/17 16:19 [From Benadryl] mirtazapine [From Remeron] AdvReac Hallucinati Verified 06/05/17 16:19 ng Limitations: ROS unobtainable due to patients medical condition Past Medical History - Past Medical History Source: old records reviewed, obtained from family Medical history: Reports: hypertension, migraine, seizures Surgical history: Reports: appendectomy, colectomy, orthopedic, other Psychiatric history: Reports: anxiety, ADHD, depression, schizophrenia - Social History Smoking Status: Current every day smoker Smokeless Tobacco Status: No Alcohol use: Reports: none Drug use: Reports: marijuana Physical Exam - General Limitations: altered mental status General appearance: alert, anxious - Head Head exam: normocephalic, other (Small hematoma to the left side of his for it.) - Eye Eye exam: Present: normal appearance, PERRL, EOMI - ENT ENT exam: normal exam, normal oropharynx, mucous membranes dry - Neck Neck exam: Present: normal inspection, full ROM, trachea midline - Chest Chest inspection: Present: normal inspection, symmetric chest wall rise - Respiratory Respiratory exam: Present: normal lung sounds bilaterally - Cardiovascular Cardiovascular exam: Present: normal rhythm, tachycardia, normal heart sounds - Abdominal Exam Abdominal exam: Present: soft, Non-Tender. Absent: tenderness, distention, guarding, rebound, rigidity - Extremities Exam Extremities exam: Present: normal inspection, full ROM. Absent: tenderness, pedal edema - Neurological Exam Neurological exam: Present: alert - Expanded Neurological Exam Patient oriented to: Present: person Cranial nerves: EOM function (II, III, IV, ): Normal, facial sensation (V): Normal, facial palsy (VII): Normal Motor strength - LUE: 5/5 Motor strength - RUE: 5/5 Motor strength - LLE: 5/5 Motor strength - RLE: 5/5 Coma Scale Eye Opening: Spontaneous Coma Scale Motor Response: Obeys Commands Coma Scale Verbal Response: Confused Coma Scale Total: 14 - Skin Skin exam: Present: warm, dry, intact, normal color Course Vital Signs Temperature 97.7 F 05/31/18 21:09 Pulse Rate 105 05/31/18 21:09 Respiratory Rate 18 05/31/18 21:09 Blood Pressure 152/97 05/31/18 21:09 O2 Sat by Pulse Oximetry 100 05/31/18 21:09 Temperature 97.7 F 05/31/18 21:09 Pulse Rate 105 05/31/18 21:09 Respiratory Rate 18 05/31/18 21:09 Blood Pressure 152/97 05/31/18 21:09 O2 Sat by Pulse Oximetry 100 05/31/18 21:09 Oxygen Delivery Oxygen Delivery Room Air Altered Mental Status - MDM Narrative Medical decision making narrative: Patient remains altered and what appears to be post ictal. Given the patient's leukocytosis and altered state, we added labs including urine drug screen, toxicity the city levels of salicylate, CN XI, alcohol. The mother states that this is pretty typical for post ictal period but she states is typically little bit shorter. Head CT is currently pending. The patient will likely need to be admitted to the hospital given concern for status epilepticus. Patient was given a gram of Keppra in the emergency department as he was not actively seizi ng. In addition the patient was given 1.5 mg of Ativan. Mother agrees to plan of care. At this time the patient care will be signed out to Dr. Paz. - Medical Records Medical records reviewed: Yes I reviewed the patient's medical records. - Lab Data Lab results reviewed: Yes I reviewed the patient's lab results. Result diagrams: 06/01/18 06:08 06/01/18 06:08 Lab Results 05/31/18 05/31/18 05/31/18 Range/Units 21:22 21:22 23:07 WBC 27.8 H (4.3-11.1) K/mcL RBC 6.10 H (4.19-5.50) M/mcL Hgb 17.9 H (12.9-16.9) g/dL Hct 51.4 H (37.5-50.1) % MCV 84.3 (83.0-100.0) fL MCH 29.3 (28.0-33.3) pg MCHC 34.8 (31.6-35.5) g/dL RDW 15.2 H (11.5-14.5) % Plt Count 337 (140-400) K/mcL MPV 9.7 (9.4-12.4) fL Immature Gran % 1.4 (0-4) % Seg Neutrophils % 83.5 % Lymphocytes % 4.1 % Monocytes % 10.5 % Eosinophils % 0.0 % Basophils % 0.5 % Neutrophils # 23.2 H (1.6-8.9) K/mcL Lymphocytes # 1.1 (0.6-4.6) K/mcL Monocytes # 2.9 H (0.0-1.3) K/mcL Eosinophils # 0.0 (0.0-0.6) K/mcL Basophils # 0.1 (0.0-0.2) K/mcL Reactive Lymphocytes Present A (Not Present) Sodium 141 (136-145) mEq/L Potassium 4.8 (3.5-5.1) mEq/L Chloride 108 H (98-107) mEq/L Carbon Dioxide 15 L (23-29) mEq/L BUN 16 (6-20) mg/dL Creatinine 1.16 (0.70-1.30) mg/dL Est GFR ( Amer) > 60 (> 60) Est GFR (Non-Af Amer) > 60 (> 60) BUN/Creatinine Ratio 14 (6-26) Glucose 107 H (70-105) mg/dL Calculated Osmolality 294 (280-300) Calcium 10.4 H (8.6-10.3) mg/dL Total Bilirubin 0.4 (0.3-1.0) mg/dL Direct Bilirubin 0.0 (0.0-0.2) mg/dL Indirect Bilirubin 0.4 (0.0-1.2) mg/dL AST 24 (13-39) Units/L ALT 28 (7-52) Units/L Alkaline Phosphatase 101 (34-104) Units/L Creatine Kinase 138 (30-223) Units/L Serum Total Protein 8.1 (6.4-8.9) g/dL Albumin 5.4 (3.5-5.7) g/dL Globulin 2.7 (2.4-3.5) g/dL Albumin/Globulin Ratio 2.0 (1.1-2.2) Salicylates < 2.5 L (15.0-30.0) mg/dL Acetaminophen < 10 L (10-20) mcg/mL Ur Drug Screen Interp See Below Ethyl Alcohol < 10 (Less than 10) mg/dL - EKG Data EKG attestation: Yes I reviewed and interpreted this EKG. EKG results narrative: Heart rate 99 beats for minute. Normal sinus rhythm. No ST elevation or ST depression noted. EKG overall similar appearance EKG from 10/14/2017. TPA Checklist - LKW: 3-4.5 hrs Add. Warnings/Precautions Patient/family understanding: The patient/family members have been counseled and understood the risk, benefit, and alternatives of treatment. Attestation Statement - Attestation Attestation: I examined this patient and my medical decision-making was reviewed with the Re sident Physician. I agree with the documented findings, disposition and treatment plan as described except to the extent set forth below.
[2018-05-31 21:40] LABS: Basophils # 0.1 K/mcL (0.0-0.2); Basophils % 0.5 %; Hematocrit 51.4 % (37.5-50.1); Hemoglobin 17.9 g/dL (12.9-16.9); Immature Granulocytes % 1.4 % (0-4); Lymphocytes # 1.1 K/mcL (0.6-4.6); Lymphocytes % 4.1 %; Mean Corpuscular HGB Conc 34.8 g/dL (31.6-35.5); Mean Corpuscular Hemoglobin 29.3 pg (28.0-33.3); Mean Corpuscular Volume 84.3 fL (83.0-100.0); Mean Platelet Volume 9.7 fL (9.4-12.4); Monocytes # 2.9 K/mcL (0.0-1.3); Monocytes % 10.5 %; Neutrophils # 23.2 K/mcL (1.6-8.9); Platelet Count 337 K/mcL (140-400); Red Cell Distribution Width 15.2 % (11.5-14.5); Segmented Neutrophils % 83.5 %
[2018-05-31 22:00] LABS: BUN/Creatinine Ratio 14 (6-26); Blood Urea Nitrogen 16 mg/dL (6-20); Calcium 10.4 mg/dL (8.6-10.3); Carbon Dioxide 15 mEq/L (23-29); Chloride 108 mEq/L (98-107); Glucose 107 mg/dL (70-105); Osmolality,Calculated 294 (280-300); Potassium 4.8 mEq/L (3.5-5.1); Sodium 141 mEq/L (136-145); eGFR For Non-African Americans > 60 (> 60)
[2018-05-31 22:09] LABS: Reactive Lymphocytes Present (Not Present)
[2018-05-31 22:10] LABS: Creatine Kinase 138 Units/L (30-223)
--- NOTE | 2018-05-31 22:50 | Emergency Department Note ---
Disposition Clinical Impression: Epileptic seizure, Generalized seizure Disposition: Admitted As Inpatient Forms: ED Satisfaction Letter General Adult HPI - General Chief complaint: ED Seizure Stated complaint: seizures Time Seen by Provider: 05/31/18 21:10 Source: patient, EMS Mode of arrival: EMS Limitations: altered mental status - History of Present Illness Pain Scale: 0 - Related Data Home Medications Medication Instructions Recorded Confirmed Lacosamide [Vimpat] 150 mg PO Q12H 10/14/17 10/14/17 Previous Rx's Medication Instructions Recorded Promethazine [Phenergan] 25 mg PO Q8HR #7 tablet 12/14/17 Benzonatate [Tessalon] 100 mg PO TID #15 capsule 03/15/18 Ondansetron HCl [Zofran] 8 mg PO Q8HR PRN #10 tab 03/15/18 Ondansetron ODT [Zofran ODT] 4 mg SL Q6HR PRN #8 tab.rapdis 03/21/18 Allergies Allergy/AdvReac Type Severity Reaction Status Date / Time diphenhydramine Allergy Hives Verified 06/05/17 16:19 [From Benadryl] mirtazapine [From Remeron] AdvReac Hallucinati Verified 06/05/17 16:19 ng Past Medical History - Past Medical History Medical history: Reports: hypertension, migraine, seizures Surgical history: Reports: appendectomy, colectomy, orthopedic, other Psychiatric history: Reports: anxiety, ADHD, depression, schizophrenia - Social History Smoking Status: Current every day smoker Smokeless Tobacco Status: No Alcohol use: Reports: none Drug use: Reports: marijuana Physical Exam - General Limitations: altered mental status General appearance: alert, anxious Course Vital Signs Temperature 97.7 F 05/31/18 21:09 Pulse Rate 105 05/31/18 21:09 Respiratory Rate 18 05/31/18 21:09 Blood Pressure 152/97 05/31/18 21:09 O2 Sat by Pulse Oximetry 100 05/31/18 21:09 Temperature 97.7 F 05/31/18 21:09 Pulse Rate 105 05/31/18 21:09 Respiratory Rate 18 05/31/18 21:09 Blood Pressure 152/97 05/31/18 21:09 O2 Sat by Pulse Oximetry 100 05/31/18 21:09 Oxygen Delivery Oxygen Delivery Room Air Medical Decision Making - Lab Data Result diagrams: 05/31/18 21:22 05/31/18 21:22 Lab Results 05/31/18 05/31/18 Range/Units 21:22 21:22 WBC 27.8 H (4.3-11.1) K/mcL RBC 6.10 H (4.19-5.50) M/mcL Hgb 17.9 H (12.9-16.9) g/dL Hct 51.4 H (37.5-50.1) % MCV 84.3 (83.0-100.0) fL MCH 29.3 (28.0-33.3) pg MCHC 34.8 (31.6-35.5) g/dL RDW 15.2 H (11.5-14.5) % Plt Count 337 (140-400) K/mcL MPV 9.7 (9.4-12.4) fL Immature Gran % 1.4 (0-4) % Seg Neutrophils % 83.5 % Lymphocytes % 4.1 % Monocytes % 10.5 % Eosinophils % 0.0 % Basophils % 0.5 % Neutrophils # 23.2 H (1.6-8.9) K/mcL Lymphocytes # 1.1 (0.6-4.6) K/mcL Monocytes # 2.9 H (0.0-1.3) K/mcL Eosinophils # 0.0 (0.0-0.6) K/mcL Basophils # 0.1 (0.0-0.2) K/mcL Reactive Lymphocytes Present A (Not Present) Sodium 141 (136-145) mEq/L Potassium 4.8 (3.5-5.1) mEq/L Chloride 108 H (98-107) mEq/L Carbon Dioxide 15 L (23-29) mEq/L BUN 16 (6-20) mg/dL Creatinine 1.16 (0.70-1.30) mg/dL Est GFR ( Amer) > 60 (> 60) Est GFR (Non-Af Amer) > 60 (> 60) BUN/Creatinine Ratio 14 (6-26) Glucose 107 H (70-105) mg/dL Calculated Osmolality 294 (280-300) Calcium 10.4 H (8.6-10.3) mg/dL Creatine Kinase 138 (30-223) Units/L Attestation Statement - Attestation Attestation: I have seen this patient with the resident physician, I have personally evaluated this patient. I had reviewed the chart and document dictation by the resident physician and M in agreement with the information documented by the resident physician. Please see documentation by the resident physician for complete chart including past medical history, family medical history, review of systems, current history and physical and laboratory and imaging studies. I examined this patient and my medical decision-making was reviewed with the Resident Physician. I agree with the documented findings, disposition and treatment plan as described except to the extent set forth below. Patient presented emergency department with altered mental status and multiple seizures today, apparently he has had 5 seizures today, he is still on Vimpat for seizures and just recently had a neurostimulator placed but it is not currently turned on as of yet. No reported significant recent illnesses but inc reased seizure activity today with reported 5 seizures by family, seems more out of it than usual and really has not returned back to his baseline in between completely. Upon arrival, patient clinically appears somewhat dehydrated mildly tachycardic with a heart rate of 105, lips are very dry although oral membranes are normal appearance with no obvious evidence of tongue biting. Pupils are normal. Patient does appear somewhat postictal, is cooperative with somewhat exam, but still seems postictal in nature, no evidence of active seizure, seems very slightly agitated but again will open his eyes will open his mouth and follow simple commands. Lungs are clear heart is regular, tachycardic rate of 105 no murmurs rubs or gallops abdomen soft and nontender, normal pulses in all 4 extremities, no evidence of obvious meningeal sign, he does appear slightly pale in appearance, no unilateral neurologic findings. No petechiae. Patient had an IV placed, he was given fluids, he was given Ativan. Basic laboratory studies demonstrate a leukocytosis of 27,000, have reviewed his labs he often does have leukocytosis associated with his recurrent seizures, this is higher than typical as usually his white blood cell count is around 18,000 when this occurs but does have a history of leukocytosis in the past. Remainder of the laboratory studies are within acceptable limits apart from a slightly low bicarbonate of 15, and a borderline gap of 18. Chest x-ray revealed no evidence of acute abnormality as interpreted by radiology Patient's total CPK was within acceptable limits. Toxicology screens were pending at the time of this dictation. Head CT was pending at the time of this dictation. Patient without evidence of current seizure, however symptoms are concerning for potential for status epilepticus, as he according family did not completely return to baseline, in between seizures, he has been given Ativan here in the emergency department and is on Vimpat, no evidence of active seizure, will be given 1 g of Keppra secondary to concerns for potentially not returning back to his mental baseline and he will require admission to the hospital pending the remainder of his workup.
[2018-05-31] MEDS ORDERED: levETIRAcetam 1,000 MG in 0.9 % Sodium Chloride 100 ML IVPB ONE (22:51)
[2018-05-31 22:54] LABS: Acetaminophen < 10 mcg/mL (10-20); Alanine Aminotransferase 28 Units/L (7-52); Albumin 5.4 g/dL (3.5-5.7); Alkaline Phosphatase 101 Units/L (34-104); Aspartate Amino Transferase 24 Units/L (13-39); Bilirubin,Indirect 0.4 mg/dL (0.0-1.2); Bilirubin,Total 0.4 mg/dL (0.3-1.0); Ethanol < 10 mg/dL (Less than 10); Globulin 2.7 g/dL (2.4-3.5); Salicylate < 2.5 mg/dL (15.0-30.0); Total Protein 8.1 g/dL (6.4-8.9)
[2018-05-31 23:27] LABS: Amphetamine Screen,Urine Negative ng/mL (Cutoff=1000); Barbiturate Screen,Urine Negative ng/mL (Cutoff=200); Benzodiazepines Screen,Urine Negative ng/mL (Cutoff=200); Cannabinoid Screen,Urine Positive ng/mL (Cutoff = 50); Cocaine Screen,Urine Negative ng/mL (Cutoff= 300); Opiate Screen,Urine Negative ng/mL (Cutoff=300); Phencyclidine Screen,Urine Negative ng/mL (Cutoff=25)
[2018-06-01] MEDS ORDERED: cefTRIAXone 2,000 MG in 0.9 % Sodium Chloride Mini Bag 100 ML IVPB ONE (00:54)
--- NOTE | 2018-06-01 00:58 | Emergency Department Note ---
Disposition Clinical Impression: Epileptic seizure, Generalized seizure Disposition: Admitted As Inpatient Condition: Undetermined Time of Disposition: 00:57 Seizure HPI - General Chief Complaint: ED Seizure Stated Complaint: seizures Time Seen by Provider: 05/31/18 21:10 Source: patient, EMS Mode of arrival: EMS Limitations: altered mental status - Related Data Home Medications Medication Instructions Recorded Confirmed RX: Lacosamide [Vimpat] 150 mg PO Q12H 10/14/17 06/01/18 RX: Buprenorphine HCl/Naloxone HCl 2 each SL DAILY 06/01/18 06/01/18 [Buprenorphin-Naloxon 8-2 mg Sl] Allergies Allergy/AdvReac Type Severity Reaction Status Date / Time diphenhydramine Allergy Hives Verified 06/01/18 16:35 [From Benadryl] mirtazapine [From Remeron] AdvReac Hallucinati Verified 06/01/18 16:35 ng Past Medical History - Past Medical History Medical history: Reports: hypertension, migraine, seizures Surgical history: Reports: appendectomy, colectomy, orthopedic, other Psychiatric history: Reports: anxiety, ADHD, depression, schizophrenia - Social History Smoking Status: Current every day smoker Smokeless Tobacco Status: No Alcohol use: Reports: none Drug use: Reports: marijuana Physical Exam - General Limitations: altered mental status General appearance: alert, anxious Course Course Narrative: Dr. Paz note: Patient was accepted by the hospitalist Dr. Grissom at 12:50 AM. Patient following commands and is awake and alert. He is afebrile. Heart rate has normalized. He is not hypertensive or febrile. No focal neurological signs or symptoms. He is conversive. Mother admits the same presentation is having many times since seizure onset of years ago. No indication for lumbar puncture at this time. We will cover patient with cultures and antibiotics as a caution. Admitted and stabilized improved condition. Neurological status much improved from prior. No indication for emergent EEG or add'l testing at this time. Vital Signs Temperature 97.7 F 05/31/18 21:09 Pulse Rate 105 05/31/18 21:09 Respiratory Rate 18 05/31/18 21:09 Blood Pressure 152/97 05/31/18 21:09 O2 Sat by Pulse Oximetry 100 05/31/18 21:09 Temperature 99.6 F 06/01/18 15:48 Pulse Rate 77 06/01/18 15:48 Respiratory Rate 16 06/01/18 15:48 Blood Pressure 138/88 06/01/18 15:48 O2 Sat by Pulse Oximetry 99 06/01/18 15:48 Oxygen Delivery Oxygen Delivery Room Air Seizure - Lab Data Result diagrams: 06/01/18 06:08 06/01/18 06:08 Lab Results 05/31/18 05/31/18 05/31/18 Range/Units 21:22 21:22 22:44 WBC 27.8 H (4.3-11.1) K/mcL RBC 6.10 H (4.19-5.50) M/mcL Hgb 17.9 H (12.9-16.9) g/dL Hct 51.4 H (37.5-50.1) % MCV 84.3 (83.0-100.0) fL MCH 29.3 (28.0-33.3) pg MCHC 34.8 (31.6-35.5) g/dL RDW 15.2 H (11.5-14.5) % Plt Count 337 (140-400) K/mcL MPV 9.7 (9.4-12.4) fL Immature Gran % 1.4 (0-4) % Seg Neutrophils % 83.5 % Lymphocytes % 4.1 % Monocytes % 10.5 % Eosinophils % 0.0 % Basophils % 0.5 % Neutrophils # 23.2 H (1.6-8.9) K/mcL Lymphocytes # 1.1 (0.6-4.6) K/mcL Monocytes # 2.9 H (0.0-1.3) K/mcL Eosinophils # 0.0 (0.0-0.6) K/mcL Basophils # 0.1 (0.0-0.2) K/mcL Reactive Lymphocytes Present A (Not Present) Sodium 141 (136-145) mEq/L Potassium 4.8 (3.5-5.1) mEq/L Chloride 108 H (98-107) mEq/L Carbon Dioxide 15 L (23-29) mEq/L BUN 16 (6-20) mg/dL Creatinine 1.16 (0.70-1.30) mg/dL Est GFR ( Amer) > 60 (> 60) Est GFR (Non-Af Amer) > 60 (> 60) BUN/Creatinine Ratio 14 (6-26) Glucose 107 H (70-105) mg/dL POC Glucose (70-99) mg/dL Calculated Osmolality 294 (280-300) Lactic Acid 1.1 (0.5-2.2) mmol/L Calcium 10.4 H (8.6-10.3) mg/dL Total Bilirubin 0.4 (0.3-1.0) mg/dL Direct Bilirubin 0.0 (0.0-0.2) mg/dL Indirect Bilirubin 0.4 (0.0-1.2) mg/dL AST 24 (13-39) Units/L ALT 28 (7-52) Units/L Alkaline Phosphatase 101 (34-104) Units/L Creatine Kinase 138 (30-223) Units/L Serum Total Protein 8.1 (6.4-8.9) g/dL Albumin 5.4 (3.5-5.7) g/dL Globulin 2.7 (2.4-3.5) g/dL Albumin/Globulin Ratio 2.0 (1.1-2.2) Salicylates < 2.5 L (15.0-30.0) mg/dL Urine Opiates Screen (Bgsjmb=202) ng/mL Acetaminophen < 10 L (10-20) mcg/mL Ur Barbiturates Screen (Vojxiv=210) ng/mL Ur Phencyclidine Scrn (Cutoff=25) ng/mL Ur Amphetamines Screen (Hizlbb=7237) ng/mL U Benzodiazepines Scrn (Zvnvpd=755) ng/mL Urine Cocaine Screen (Cutoff= 300) ng/mL U Marijuana (THC) Screen (Cutoff = 50) ng/mL Ur Drug Screen Interp Ethyl Alcohol < 10 (Less than 10) mg/dL 05/31/18 06/01/18 Range/Units 23:07 05:04 WBC (4.3-11.1) K/mcL RBC (4.19-5.50) M/mcL Hgb (12.9-16.9) g/dL Hct (37.5-50.1) % MCV (83.0-100.0) fL MCH (28.0-33.3) pg MCHC (31.6-35.5) g/dL RDW (11.5-14.5) % Plt Count (140-400) K/mcL MPV (9.4-12.4) fL Immature Gran % (0-4) % Seg Neutrophils % % Lymphocytes % % Monocytes % % Eosinophils % % Basophils % % Neutrophils # (1.6-8.9) K/mcL Lymphocytes # (0.6-4.6) K/mcL Monocytes # (0.0-1.3) K/mcL Eosinophils # (0.0-0.6) K/mcL Basophils # (0.0-0.2) K/mcL Reactive Lymphocytes (Not Present) Sodium (136-145) mEq/L Potassium (3.5-5.1) mEq/L Chloride (98-107) mEq/L Carbon Dioxide (23-29) mEq/L BUN (6-20) mg/dL Creatinine (0.70-1.30) mg/dL Est GFR ( Amer) (> 60) Est GFR (Non-Af Amer) (> 60) BUN/Creatinine Ratio (6-26) Glucose (70-105) mg/dL POC Glucose 99 (70-99) mg/dL Calculated Osmolality (280-300) Lactic Acid (0.5-2.2) mmol/L Calcium (8.6-10.3) mg/dL Total Bilirubin (0.3-1.0) mg/dL Direct Bilirubin (0.0-0.2) mg/dL Indirect Bilirubin (0.0-1.2) mg/dL AST (13-39) Units/L ALT (7-52) Units/L Alkaline Phosphatase (34-104) Units/L Creatine Kinase (30-223) Units/L Serum Total Protein (6.4-8.9) g/dL Albumin (3.5-5.7) g/dL Globulin (2.4-3.5) g/dL Albumin/Globulin Ratio (1.1-2.2) Salicylates (15.0-30.0) mg/dL Urine Opiates Screen Negative (Lqmxvp=246) ng/mL Acetaminophen (10-20) mcg/mL Ur Barbiturates Screen Negative (Usipdo=497) ng/mL Ur Phencyclidine Scrn Negative (Cutoff=25) ng/mL Ur Amphetamines Screen Negative (Lanbfh=9402) ng/mL U Benzodiazepines Scrn Negative (Zkgopv=424) ng/mL Urine Cocaine Screen Negative (Cutoff= 300) ng/mL U Marijuana (THC) Screen Positive H (Cutoff = 50) ng/mL Ur Drug Screen Interp See Below Ethyl Alcohol (Less than 10) mg/dL
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
[2018-06-01] MEDS ORDERED: Naloxone 0.4 MG/ML INJ IVP PRN (02:21)
[2018-06-01] MEDS ORDERED: *HR* LORazepam 2 MG/ML VIAL IVP PRN (04:32)
[2018-06-01 06:23] LABS: Basophils % 0.1 %; Hematocrit 47.9 % (37.5-50.1); Immature Granulocytes % 0.6 % (0-4); Lymphocytes % 4.6 %; Mean Corpuscular HGB Conc 33.2 g/dL (31.6-35.5); Mean Corpuscular Hemoglobin 29.2 pg (28.0-33.3); Mean Corpuscular Volume 87.9 fL (83.0-100.0); Monocytes # 1.6 K/mcL (0.0-1.3); Monocytes % 7.3 %; Platelet Count 318 K/mcL (140-400); Red Blood Count 5.45 M/mcL (4.19-5.50); Red Cell Distribution Width 14.6 % (11.5-14.5); Segmented Neutrophils % 87.4 %
[2018-06-01 06:24] LABS: Hemoglobin 15.9 g/dL (12.9-16.9)
[2018-06-01 06:44] LABS: BUN/Creatinine Ratio 16 (6-26); Blood Urea Nitrogen 15 mg/dL (6-20); Calcium 9.1 mg/dL (8.6-10.3); Carbon Dioxide 15 mEq/L (23-29); Chloride 111 mEq/L (98-107); Glucose 135 mg/dL (70-105); Osmolality,Calculated 289 (280-300); Potassium 4.1 mEq/L (3.5-5.1); Sodium 138 mEq/L (136-145); eGFR For Non-African Americans > 60 (> 60)
[2018-06-01] MEDS: *HR* Heparin 5,000 UNIT/ML VIAL SQ SCH ×2 (06:58→19:35)
[2018-06-01] MEDS: 0.9 % Sodium Chloride 1,000 ML IVC SCH ×2 (06:58→23:31)
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
--- NOTE | 2018-06-01 09:15 | Internal Med Progress Note ---
Hospitalist Progress Note - Encounter Date of Encounter: 06/01/18 Time of Encounter: 09:05 - Subjective Interval History: Patient seen and examined this morning at bedside. No acute overnight events. Still with headache and neck pain and feeling ill. No new episodes of seizures. More alert and oriented compared to previous descriptions. Still nauseous - Exam Vitals: Temp Pulse Resp BP Pulse Ox 98.5 F 97 16 124/68 97 06/01/18 07:17 06/01/18 07:17 06/01/18 07:17 06/01/18 07:17 06/01/18 07:17 Exam: General: In no acute distress. Respiratory exam: CTAB. no accessory muscle use, rales, rhonchi, wheezes Cardiovascular exam: RRR, +S1, +S2. no murmur, gallop, rubs. GI/Abdominal exam: Non-tender, Non-distended, soft, no peritoneal signs. Extremities exam: no pedal edema, pulses palpable in b/l lower extremities. no calf tenderness Neurological exam: CN II-XII intact, AO X3, no focal deficits. Skin exam: No skin rash - Summary of Assessment and Plan Summary of Assessment and Plan: Altered mental status, seizures - suspected post ictal state after 5 seizures witnessed by girlfriend vs Meningitis, encephalitis - h/o seizure disorder from traumatic brain injury sustained in 2012 and schizoprenia. typically has 1 seizure per week. He takes vimpat at home. Also recently had neurostimulator placed. - Mentation now imporved. Head CT unremarkable. CXR and EKG unremarkable - Utox positive for marijuana - c/w Seizure precautions. s/p Keppra - to get LP. Neurology consulted for further recommendations. Will get MRI and EEG and await further recommendations. SIRS - leukocytosis and tachycardia. No fever, no tachypnea, lactic acid 1.1 - suspected meningitis/encephalitis. - c/w empiric Vancomycin and ceftriaxone for now. to get LP flouro guided shortly. f/u CSF studies. - c/u blood culture DVT prophylaxis - Subcutaneous heparin - Time Spent with Patient Total time spent is greater than 50% in coordination of care (as documented) at patient's floor/unit and/or counseling patient: Internal Medicine: Result - Labs CBC & Chem 7: 06/01/18 06:08 06/01/18 06:08 Labs: Short CBC 04/02/19 04/03/19 Range/Units 21:22 06:08 WBC 27.8 H 21.7 H (4.3-11.1) K/mcL Hgb 17.9 H 15.9 D (12.9-16.9) g/dL Hct 51.4 H 47.9 (37.5-50.1) % Plt Count 337 318 (140-400) K/mcL Neutrophils # 23.2 H 19.0 H (1.6-8.9) K/mcL BMP 05/31/18 06/01/18 21:22 06:08 Sodium 141 138 Potassium 4.8 4.1 Chloride 108 H 111 H Carbon Dioxide 15 L 15 L BUN 16 15 Creatinine 1.16 0.93 Glucose 107 H 135 H Calcium 10.4 H 9.1 Liver Function 05/31/18 Range/Units 21:22 Total Bilirubin 0.4 (0.3-1.0) mg/dL Direct Bilirubin 0.0 (0.0-0.2) mg/dL AST 24 (13-39) Units/L ALT 28 (7-52) Units/L Alkaline Phosphatase 101 (34-104) Units/L Albumin 5.4 (3.5-5.7) g/dL - Impressions Impressions Head CT 05/31/18 21:11 IMPRESSION: No acute intracranial abnormality. D/ / Osman Tay MD / Osman Tay MD Interpreting Provider: Osman Tay MD Chest X-Ray 05/31/18 22:17 IMPRESSION: No acute cardiopulmonary disease or significant interval change from prior study 03/21/2018 D/ / Milad Marcelo / Milad Marcelo Interpreting Provider: Milad Marcelo Consult Discharge Plan - Plan Referrals: NONE,PCP [Primary Care Provider] -
[2018-06-01 12:23] LABS: Red Blood Cell,CSF < 0.002 M/mcL
[2018-06-01] MEDS ORDERED: cefTRIAXone 2,000 MG in Water for inj. (sterile) 20 ML 20 ML IVP SCH (13:00)
[2018-06-01 13:39] LABS: Appearance,CSF Clear (Clear)
[2018-06-01 13:43] LABS: Glucose,CSF 82 mg/dL (40-70); Total Protein,CSF 40 mg/dL (15-45)
[2018-06-01] MEDS ORDERED: Phenytoin 1,000 MG in SYRINGE 1 EACH IVPB ONE (15:04)
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
--- NOTE | 2018-06-01 15:33 | EEG/EMG/Oth Biometrics Report ---
EEG Procedure Report Date of procedure: 06/01/18 EEG Procedure: Routine EEG Procedure Note: History: This is a 32 year old man who is undergoing an EEG to evaluate recurrent seizures. Medication: no anticonvulsants listed. Report: This EEG was acquired with standard international 10-20 electrode placement system with EKG recording. The Background activity during this EEG was characterized by the presence of persistent stage 2 sleep, right from the beginning of the recording. Sleep stages were characterized by the presence of background fragmentation, vertex waves, K-complexes and sleep spindles. There are no electrographic seizures identified during this tracing. There are no epileptiform discharges and focal slowing noted during this recording. Photic stimulation produced no abnormalities. HV procedure not performed. EKG tracing showed no significant cardiac dysarrhythmia. Impression: This is a normal asleep EEG. Clinical Correlation: Normal EEGs, however, do not exclude epilepsy. Clinical correlation required.
[2018-06-01] MEDS: Acyclovir 750 MG in D5% in Water 250 ML IVPB SCH ×2 (17:04→23:30)
[2018-06-01 17:07] LABS: Bilirubin,Urine Negative (Negative); Blood,Urine Negative (Negative); Clarity,Urine Turbid (Clear); Color,Urine Yellow (Yellow); Glucose,Urine (UA) Normal (Normal); Ketones,Urine 80 mg/dL (Negative); Leukocyte Esterase,Urine Negative (Negative); Nitrite,Urine Negative (Negative); Protein,Urine Trace mg/dL (Neg-Trace); Specific Gravity,Urine 1.028 (1.010-1.025); Urobilinogen,Urine Normal (Normal)
[2018-06-01 17:16] LABS: Bacteria,Urine None Seen per hpf (None-Few); Hyaline Casts,Urine None Seen per lpf (None-Few); RBC,Urine 0-3 per hpf (0-3); Squamous Epithelial Cell,Urine Moderate per lpf (None-Few); WBC,Urine 0-3 per hpf (0-3)
--- NOTE | 2018-06-01 18:08 | Discharge Summary ---
- NOTES TO OUTPATIENT PROVIDER Notes to Outpatient Provider: Patient transferred to [place] for further management Orders not resulted at time of discharge: Pending orders 06/01/18 02:01 Culture,Blood [BC] Stat 06/01/18 11:24 Borrelia burgdorferi Panel CSF Routine Culture,CSF [RM] Routine VDRL reflex titer, CSF Routine Varicella-Zoster Virus PCR Routine 06/01/18 14:11 Herpes Simplex PCR Body Fl Routine 06/01/18 15:25 Cytomegalovirus IgG IgM Routine 06/01/18 16:35 Respiratory Infection Panel [MOLMIC] Stat 06/01/18 16:45 Neisseria Gonorrhoeae DNA, Ur [MOLMIC] Routine Date of Encounter: 06/01/18 Time of Encounter: 18:06 - Discharge Diagnosis (1) Aseptic meningitis Priority: Primary Status: Acute (2) Generalized seizure Priority: Primary Status: Acute (3) Leukocytosis Priority: Primary Status: Acute Qualifiers: Leukocytosis type: unspecified Qualified Code(s): D72.829 - Elevated white blood cell count, unspecified (4) H/O head injury Priority: Secondary Status: Chronic (5) Altered mental state Priority: Primary Status: Acute Qualifiers: Qualified Code(s): R40.0 - Somnolence Hospital course: Mr. 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 Patient had some generalized seizures as per family. Patient recently had neurostimulator few weeks ago for his seizures however it has not been activated yet. Patient abuses pain medication as well as marijuana. Patient does drink alcohol occasionally as well. Patient was loaded with Keppra however given significant leukocytosis and altered mental status there was high suspicion of meningitis or encephalitis. Patient was started on broad-spectrum antibiotics with vancomycin and ceftriaxone. Infectious disease and neurology were consulted. Patient had lumbar puncture done which showed clinical picture of viral versus aseptic meningitis. Patient was started on acyclovir. Patient was started on phenytoin per neurology. Patient had EEG which was unremarkable. MRI was ordered but could not be obtained due to neurostimulator device. Patient could have further MRI imaging for encephalitis [facility] and patient's own neurologist is also present at [facility]. Per patient's family request and to get MRI arrangements are being made to transfer patient to [facility]. HSV PCR was sent but is pending. No history of travel sick contact or tick bites recently. Patient is otherwise hemodynamically stable. Discharge discussed with: patient, nurse, tour consultant - Time Spent with Patient Total time spent providing and/or coordinating discharge services: Time spent: Greater than 30 minutes (45) - Discharge Medications Prescriptions: Continue Lacosamide [Vimpat] 150 mg PO Q12H Buprenorphine HCl/Naloxone HCl [Buprenorphin-Naloxon 8-2 mg Sl] 2 each SL DAILY Home Medications: Lacosamide [Vimpat] 150 mg PO Q12H 10/14/17 [History] Buprenorphine HCl/Naloxone HCl [Buprenorphin-Naloxon 8-2 mg Sl] 2 each SL DAILY 06/01/18 [History] Allergies/Adverse Reactions: Allergy/AdvReac Type Severity Reaction Status Date / Time diphenhydramine Allergy Hives Verified 06/01/18 16:35 [From Benadryl] mirtazapine [From Remeron] AdvReac Hallucinati Verified 06/01/18 16:35 ng Date of admission: 06/01/18 05:30 Primary care physician: PCP NONE Consults: 06/01/18 04:35 Consult to Interventional Radiology [CONS] Routine Consulting Provider: Radiology [facility] Reason for Consult: Lumbar puncture Call Completed: No Consult to Neurology [CONS] Routine Consulting Provider: Neurology [facility] Reason for Consult: Seizures Call Completed: No 06/01/18 14:12 Consult to Infectious Diseases [CONS] Routine Consulting Provider: Infectious Disease [place] Reason for Consult: viral meningitis Time Notified: 14:12 Call Completed: Yes 06/01/18 15:13 Consult to Interpret Exam [CONS] Routine Consulting Provider: Ana Cristina Moise Consult to Interpret Exam: Interpret EEG Discharging clinician: Claire Roche - Constitutional Vitals: Temp Pulse Resp BP Pulse Ox 99.6 F 77 16 138/88 99 06/01/18 15:48 06/01/18 15:48 06/01/18 15:48 06/01/18 15:48 06/01/18 15:48 Exam: General: In mild distress. Respiratory exam: CTAB. no accessory muscle use, rales, rhonchi, wheezes Cardiovascular exam: RRR, +S1, +S2. no murmur, gallop, rubs. GI/Abdominal exam: Non-tender, Non-distended, soft, no peritoneal signs. Extremities exam: no pedal edema, pulses palpable in b/l lower extremities. no calf tenderness Neurological exam: AO X1, more lethargic than before Skin exam: No skin rash - Patient Status Disposition: Transfer Hospital Swing Bed Condition: Undetermined - Discharge Instructions Follow Up With: NONE,PCP [Primary Care Provider] -
[2018-06-01 18:41] LABS: Adenovirus Not Detected (Not Detect); Bordetella Pertussis Not Detected (Not Detect); Chlamydophila pneumoniae Not Detected (Not Detect); Coronavirus 229E Not Detected (Not Detect); Coronavirus HKU1 Not Detected (Not Detect); Coronavirus NL63 DETECTED (Not Detect); Coronavirus OC43 Not Detected (Not Detect); Human Metapneumovirus Not Detected (Not Detect); Human Rhinovirus/Enterovirus Not Detected (Not Detect); Influenza A Subtype 2009 H1 Not Detected (Not Detect); Influenza A Untypeable Not Detected (Not Detect); Influenza B Not Detected (Not Detect); Mycoplasma pneumoniae Not Detected (Not Detect); Parainfluenza Virus 1 Not Detected (Not Detect); Parainfluenza Virus 2 Not Detected (Not Detect); Parainfluenza Virus 3 Not Detected (Not Detect); Parainfluenza Virus 4 Not Detected (Not Detect); Respiratory Syncytial Virus Not Detected (Not Detect)
[2018-06-02 04:42] LABS: Basophils % 0.2 %; Eosinophils % 0.1 %; Hematocrit 40.7 % (37.5-50.1); Immature Granulocytes % 0.5 % (0-4); Lymphocytes # 2.1 K/mcL (0.6-4.6); Lymphocytes % 14.4 %; Mean Corpuscular HGB Conc 34.2 g/dL (31.6-35.5); Mean Corpuscular Hemoglobin 29.7 pg (28.0-33.3); Mean Platelet Volume 9.7 fL (9.4-12.4); Monocytes # 1.9 K/mcL (0.0-1.3); Monocytes % 12.8 %; Neutrophils # 10.7 K/mcL (1.6-8.9); Platelet Count 256 K/mcL (140-400); Red Blood Count 4.68 M/mcL (4.19-5.50); Red Cell Distribution Width 14.6 % (11.5-14.5)
[2018-06-02 04:47] LABS: Hemoglobin 13.9 g/dL (12.9-16.9)
[2018-06-02 04:58] LABS: BUN/Creatinine Ratio 14 (6-26); Blood Urea Nitrogen 10 mg/dL (6-20); Carbon Dioxide 23 mEq/L (23-29); Chloride 107 mEq/L (98-107); Glucose 115 mg/dL (70-105); Osmolality,Calculated 288 (280-300); Potassium 3.5 mEq/L (3.5-5.1); Sodium 139 mEq/L (136-145); eGFR For Non-African Americans > 60 (> 60)
[2018-06-02] MEDS: *HR* Heparin 5,000 UNIT/ML VIAL SQ SCH (04:58)
[2018-06-02] MEDS: Acyclovir 750 MG in D5% in Water 250 ML IVPB SCH (08:54)
--- NOTE | 2018-06-02 09:57 | Neurology Progress Note ---
Date of Encounter: 06/02/18 Time of Encounter: 09:51 Assessment and Plan (1) Seizure Current Visit: Yes Status: Acute neuro c/s for seizures and meningitis Presented with seizures 5 episodes, nausea, vomiting, neck pain and headache Clinically, the patient appears to have improved overnight. He is A and O 3, awake and conversational today. His neuro exam is nonfocal and nonlateralizing. He has not had any return of seizure activity overnight. He is still having N/V and a frontal h/a which will take time to improve given the Dx of viral meni ngitis. Leukocytosis improving, afebrile overnight and hemodynamically stable. I discussed the normal EEG findings. At this time we are still unable to obtain an MRI due to VNS placement. Continue Vimpat at 200mg PO BID and Dilantin at 100mg TID;recommend changing Dilantin to by mouth when appropriate. Okay to discharge patient on both Vimpat and Dilantin. recommendations discussed with primary team. Continue seizure precautions and PRN ativan for breakthrough seizures. ID is seeing in consultation; recommendations appreciated. Length of antiviral tx will depend on clinical picture. ABX discontinued. Continue medical and supportive care. He will need f/u with his primary neurologist at d/c. (2) Aseptic meningitis Current Visit: Yes Status: Acute See above Subjective Principal diagnosis: seizures, viral meningitis Interval history: Patient was seen and examined at bedside today. Today he is alert and oriented 3 awake and easily arousable as well as conversational. He remembers the events leading up to admission. His main complaint at this time is continued headache, neck pain, nausea and vomiting. At this time he is asking that he not be transferred to [place] and instead wishes to stay at [facility] for further monitoring. He denies any return of seizure activity overnight Objective - Constitutional Vitals: Temp Pulse Resp BP Pulse Ox 98.7 F 89 14 131/96 97 06/02/18 07:17 06/02/18 07:17 06/02/18 07:17 06/02/18 07:17 06/02/18 07:17 Exam: Examination: General Examination: *CONSTITUTIONAL: Alert and oriented x3, no acute distress, *GENERAL APPEARANCE OF PATIENT appears generally ill *EYES: pupils equal, round, reactive to light and accommodation, conjunctiva clear *CARDIOVASCULAR no peripheral edema, distal temperature normal, dorsalis pedis pulses normal. Musculoskeletal: *GAIT AND STATION not assessed; resting in bed *ASSESSMENT OF MUSCLE STRENGTH IN THE UPPER AND LOWER EXTREMITIES bilateral deltoid, bicep, tricep, stoner out strength, hip flexors ,anterior tibialis, dorsoflexion of the foot 5/5 *MUSCLE TONE IN THE UPPER AND LOWER EXTREMITIES normal. No abnormal movements, fasciculations or atrophy identified. Neurological: *ORIENTATION to person, situation, time and place *RECURRENT AND REMOTE MEMORY intact *ATTENTION AND CONCENTRATION are normal *LANGUAGE FUNCTION no significant aphasia or dysarthia was noted. *FUND OF KNOWLEDGE aware of current events, past history, vocabulary *MENTAL attention span and concentration normal. *CN II optic fundi were normal, no papilledema noted. *CN III,IV, PERRLA extraocular eye movements were full, no nystagmus and no ptosis noted. *CN V shows normal sensation and jaw opens symmetrically. *CN VII shows normal facial movement symmetrically, upper and lower bilaterally. *CN VIII shows no significant hearing loss on exam *CN IX,,X palate elevated symmetrically *CN XI normal strength in the sternocleidomastoid muscles, symmetrical shoulder shrugging. *CN XII tongue protruded in the midline, with normal strength and movement. *SENSORY EXAMINATION light touch intact *REFLEXES: deep tendon reflexes were normal and symmetrical , grade 2/4 diffusely, no pathological reflexes were noted. *CEREBELLAR TESTING normal finger to nose, heel/knee/coelho *PAIN LEVEL 6/10- frontal headache Results - Laboratory Findings CBC and BMP: 06/02/18 04:15 06/02/18 04:15 Abnormal lab findings: Abnormal lab results WBC 14.8 K/mcL (4.3-11.1) H 06/02/18 04:15 RDW 14.6 % (11.5-14.5) H 06/02/18 04:15 Neutrophils # 10.7 K/mcL (1.6-8.9) H 06/02/18 04:15 Monocytes # 1.9 K/mcL (0.0-1.3) H 06/02/18 04:15 Reactive Lymphocytes Present (Not Present) A 05/31/18 21:22 Glucose 115 mg/dL (70-105) H 06/02/18 04:15 Urine Clarity Turbid (Clear) A 06/01/18 16:45 Ur Specific [place] 1.028 (1.010-1.025) H 06/01/18 16:45 Urine Ketones 80 mg/dL (Negative) H 06/01/18 16:45 Ur Squamous Epith Cells Moderate per lpf (None-Few) H 06/01/18 16:45 CSF Tot Nucleated Cells 19 TNC/mcL (0-5) H* 06/01/18 11:24 CSF Glucose 82 mg/dL (40-70) H 06/01/18 11:24 Salicylates < 2.5 mg/dL (15.0-30.0) L 05/31/18 21:22 Acetaminophen < 10 mcg/mL (10-20) L 05/31/18 21:22 U Marijuana (THC) Screen Positive ng/mL (Cutoff = 50) H 05/31/18 23:07 Coronavirus NL63 (PCR) DETECTED (Not Detect) A 06/01/18 16:35 Consult Discharge Plan - Plan Referrals: NONE,PCP [Primary Care Provider] -
[2018-06-02] MEDS ORDERED: *HR* Buprenorphine HCl 2 MG SUBLINGUAL TABLET SL SCH (10:45)
--- NOTE | 2018-06-02 10:45 | Infectious Disease Progress No ---
Date of Encounter: 06/02/18 Time of Encounter: 09:30 - Assessment and Plan (1) Leukocytosis Status: Acute White blood cell count elevated at 27,000 on admission. Likely secondary to meningitis versus reactive from seizure. Improved. Blood cultures drawn 06/01/18 are pending 2 sets. Recommendations: Await blood cultures. Await CSF cultures to finalize. Await HSV on the CSF. We will defer additional imaging recommendations to the neurology team. Pain management and anti-emetic administration per the primary team. Continue droplet precautions for coronavirus. Continue acyclovir until HSV PCR comes back given that the patient has a history of cold sores. Duration of treatment depends on the clinical picture. Monitor renal function and dose adjust antibiotics. Qualifiers: Leukocytosis type: unspecified Qualified Code(s): D72.829 - Elevated white blood cell count, unspecified (2) Aseptic meningitis Status: Acute Causative organism: Likely coronavirus given the respiratory infectious panel results. Status post lumbar puncture 06/01/18. TNC elevated at 19 with 85% neutrophils. Culture is no growth and Gram stain is negative. Cryptococcal antigen is negative. HSV PCR is pending. Currently on IV acyclovir. (3) Headache Status: Acute Postictal versus aseptic meningitis. CT head showed no acute intracranial abnormality. Neurology consult. Recommending MRI, which the patient cannot have done here. Pending transfer to [facility] for further evaluation. Management the primary team. Qualifiers: Headache type: unspecified Headache chronicity pattern: unspecified pattern Intractability: not intractable Qualified Code(s): R51 - Headache (4) Generalized seizure Status: Acute Etiology: Infectious versus noncompliant with medications. Neurology consult and following. 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 Qualifiers: Vomiting type: cyclical vomiting Vomiting Intractability: non-intractable Qualified Code(s): G43.A0 - Cyclical vomiting, not intractable (8) H/O head injury Status: Chronic - Subjective Interval history: Patient seen and examined. No acute events noted overnight. Patient states overall he does not feel very well. Reports a frontal headache and some neck pain. Reports subjective fevers and chills overnight. Denies any chest pain or shortness of breath or cough. He states he does have some sinus congestion with green drainage. Reports nausea with bilious emesis. Denies abdominal pain or urinary complaints. Denies any oral thrush or skin rashes. Pending transfer to [facility] for additional imaging of the brain to include an MRI per neurology recommendations. Infect Dis PN-Objective Data - Labs CBC & Chem 7: 06/02/18 04:15 06/02/18 04:15 Labs: Laboratory Results - last 24 hr 06/01/18 06/01/18 06/01/18 05:04 11:24 11:56 WBC RBC Hgb Hct MCV MCH MCHC RDW Plt Count MPV Immature Gran % Seg Neutrophils % Lymphocytes % Monocytes % Eosinophils % Basophils % Neutrophils # Lymphocytes # Monocytes # Eosinophils # Basophils # Sodium Potassium Chloride Carbon Dioxide BUN Creatinine Est GFR ( Amer) Est GFR (Non-Af Amer) BUN/Creatinine Ratio Glucose POC Glucose 99 Calculated Osmolality Lactic Acid Calcium Urine Color Urine Clarity Urine pH Ur Specific [place] Urine Protein Urine Glucose (UA) Urine Ketones Urine Blood Urine Nitrite Urine Bilirubin Urine Urobilinogen Ur Leukocyte Esterase Urine Microscopic RBC Urine Microscopic WBC Ur Squamous Epith Cells Urine Bacteria Hyaline Casts Ur Culture Indicated? CSF Volume 10.5 CSF Appearance Clear CSF Color Colorless CSF RBC < 0.002 CSF Tot Nucleated Cells 19 H* CSF Seg Neutrophils 85.0 CSF Lymphocytes % 7.0 CSF Monocytes % 8.0 CSF Glucose 82 H CSF Xanth Comm Not Observed CSF Total Protein 40 Chlamy pneumoniae PCR Adenovirus (PCR) B. pertussis DNA (PCR) B.parapertussis DNA PCR Coronavirus OC43 (PCR) Coronavirus HKU1 (PCR) Coronavirus 229E (PCR) Coronavirus NL63 (PCR) HIV Ag/Ab Combo Qual Nonreactive Human Metapneumovir PCR Influenza A (H1) PCR Influ A (H1N1/09) PCR Influenza A (H3) PCR Influenza A Untype (PCR) Influenza Type B (PCR) M.pneumoniae DNA (PCR) U N.gonorrhoeae DNA PCR Parainfluenza 1 (PCR) Parainfluenza 2 (PCR) Parainfluenza 3 (PCR) Parainfluenza 4 (PCR) RSV (PCR) Entero/Rhino (PCR) 06/01/18 06/01/18 06/01/18 11:57 16:35 16:45 WBC RBC Hgb Hct MCV MCH MCHC RDW Plt Count MPV Immature Gran % Seg Neutrophils % Lymphocytes % Monocytes % Eosinophils % Basophils % Neutrophils # Lymphocytes # Monocytes # Eosinophils # Basophils # Sodium Potassium Chloride Carbon Dioxide BUN Creatinine Est GFR ( Amer) Est GFR (Non-Af Amer) BUN/Creatinine Ratio Glucose POC Glucose Calculated Osmolality Lactic Acid 0.6 Calcium Urine Color Yellow Urine Clarity Turbid A Urine pH 6.0 Ur Specific [place] 1.028 H Urine Protein Trace Urine Glucose (UA) Normal Urine Ketones 80 H Urine Blood Negative Urine Nitrite Negative Urine Bilirubin Negative Urine Urobilinogen Normal Ur Leukocyte Esterase Negative Urine Microscopic RBC 0-3 Urine Microscopic WBC 0-3 Ur Squamous Epith Cells Moderate H Urine Bacteria None Seen Hyaline Casts None Seen Ur Culture Indicated? NO CSF Volume CSF Appearance CSF Color CSF RBC CSF Tot Nucleated Cells CSF Seg Neutrophils CSF Lymphocytes % CSF Monocytes % CSF Glucose CSF Xanth Comm CSF Total Protein Chlamy pneumoniae PCR Not Detected Adenovirus (PCR) Not Detected B. pertussis DNA (PCR) Not Detected B.parapertussis DNA PCR Not Detected Coronavirus OC43 (PCR) Not Detected Coronavirus HKU1 (PCR) Not Detected Coronavirus 229E (PCR) Not Detected Coronavirus NL63 (PCR) DETECTED A HIV Ag/Ab Combo Qual Human Metapneumovir PCR Not Detected Influenza A (H1) PCR Not Detected Influ A (H1N1/09) PCR Not Detected Influenza A (H3) PCR Not Detected Influenza A Untype (PCR) Not Detected Influenza Type B (PCR) Not Detected M.pneumoniae DNA (PCR) Not Detected U N.gonorrhoeae DNA PCR Parainfluenza 1 (PCR) Not Detected Parainfluenza 2 (PCR) Not Detected Parainfluenza 3 (PCR) Not Detected Parainfluenza 4 (PCR) Not Detected RSV (PCR) Not Detected Entero/Rhino (PCR) Not Detected 06/01/18 06/02/18 06/02/18 16:45 04:15 04:15 WBC 14.8 H RBC 4.68 Hgb 13.9 D Hct 40.7 MCV 87.0 MCH 29.7 MCHC 34.2 RDW 14.6 H Plt Count 256 MPV 9.7 Immature Gran % 0.5 Seg Neutrophils % 72.0 Lymphocytes % 14.4 Monocytes % 12.8 Eosinophils % 0.1 Basophils % 0.2 Neutrophils # 10.7 H Lymphocytes # 2.1 Monocytes # 1.9 H Eosinophils # 0.0 Basophils # 0.0 Sodium 139 Potassium 3.5 Chloride 107 Carbon Dioxide 23 BUN 10 Creatinine 0.72 Est GFR ( Amer) > 60 Est GFR (Non-Af Amer) > 60 BUN/Creatinine Ratio 14 Glucose 115 H POC Glucose Calculated Osmolality 288 Lactic Acid Calcium 9.0 Urine Color Urine Clarity Urine pH Ur Specific [place] Urine Protein Urine Glucose (UA) Urine Ketones Urine Blood Urine Nitrite Urine Bilirubin Urine Urobilinogen Ur Leukocyte Esterase Urine Microscopic RBC Urine Microscopic WBC Ur Squamous Epith Cells Urine Bacteria Hyaline Casts Ur Culture Indicated? CSF Volume CSF Appearance CSF Color CSF RBC CSF Tot Nucleated Cells CSF Seg Neutrophils CSF Lymphocytes % CSF Monocytes % CSF Glucose CSF Xanth Comm CSF Total Protein Chlamy pneumoniae PCR Adenovirus (PCR) B. pertussis DNA (PCR) B.parapertussis DNA PCR Coronavirus OC43 (PCR) Coronavirus HKU1 (PCR) Coronavirus 229E (PCR) Coronavirus NL63 (PCR) HIV Ag/Ab Combo Qual Human Metapneumovir PCR Influenza A (H1) PCR Influ A (H1N1/09) PCR Influenza A (H3) PCR Influenza A Untype (PCR) Influenza Type B (PCR) M.pneumoniae DNA (PCR) U N.gonorrhoeae DNA PCR NOT DETECTED Parainfluenza 1 (PCR) Parainfluenza 2 (PCR) Parainfluenza 3 (PCR) Parainfluenza 4 (PCR) RSV (PCR) Entero/Rhino (PCR) Cultures: Cultures 06/01/18 11:24 CSF Culture - Preliminary Cerebral Spinal Fluid 06/01/18 11:24 Cryptococcal Antigen - Final Cerebral Spinal Fluid 06/01/18 02:01 Blood Culture - Preliminary Peripheral Venipuncture Culture is incubating and being continuously monitored for growth. Final report to follow. 06/01/18 02:01 Blood Culture - Preliminary Peripheral Venipuncture Culture is incubating and being continuously monitored for growth. Final report to follow. 05/31/18 22:22 Influenza Types A,B Antigen - Final Nasopharyngeal Serology 06/01/18 06/01/18 06/01/18 Range/Units 16:45 16:45 16:35 Urine Color Yellow (Yellow) Urine Clarity Turbid A (Clear) Urine pH 6.0 (5.0-8.0) pH Units Ur Specific [place] 1.028 H (1.010-1.025) Urine Protein Trace (Neg-Trace) mg/dL Urine Glucose (UA) Normal (Normal) mg/dL Urine Ketones 80 H (Negative) mg/dL Urine Blood Negative (Negative) Urine Nitrite Negative (Negative) Urine Bilirubin Negative (Negative) Urine Urobilinogen Normal (Normal) mg/dL Ur Leukocyte Esterase Negative (Negative) Urine Microscopic RBC 0-3 (0-3) per hpf Urine Microscopic WBC 0-3 (0-3) per hpf Ur Squamous Epith Cells Moderate H (None-Few) per lpf Urine Bacteria None Seen (None-Few) per hpf Hyaline Casts None Seen (None-Few) per lpf Ur Culture Indicated? NO (NO) CSF Volume mL CSF Appearance (Clear) CSF Color (Colorless) CSF RBC (0.000 - 0.002) M/mcL CSF Tot Nucleated Cells (0-5) TNC/mcL CSF Seg Neutrophils % CSF Lymphocytes % % CSF Monocytes % % CSF Glucose (40-70) mg/dL CSF Xanth Comm (Not Observe) CSF Total Protein (15-45) mg/dL Chlamy pneumoniae PCR Not Detected (Not Detect) Adenovirus (PCR) Not Detected (Not Detect) B. pertussis DNA (PCR) Not Detected (Not Detect) B.parapertussis DNA PCR Not Detected (Not Detect) Coronavirus OC43 (PCR) Not Detected (Not Detect) Coronavirus HKU1 (PCR) Not Detected (Not Detect) Coronavirus 229E (PCR) Not Detected (Not Detect) Coronavirus NL63 (PCR) DETECTED A (Not Detect) HIV Ag/Ab Combo Qual (Nonreactive) Human Metapneumovir PCR Not Detected (Not Detect) Influenza A (H1) PCR Not Detected (Not Detect) Influ A (H1N1/09) PCR Not Detected (Not Detect) Influenza A (H3) PCR Not Detected (Not Detect) Influenza A Untype (PCR) Not Detected (Not Detect) Influenza Type B (PCR) Not Detected (Not Detect) M.pneumoniae DNA (PCR) Not Detected (Not Detect) U N.gonorrhoeae DNA PCR NOT DETECTED (Not Detect) Parainfluenza 1 (PCR) Not Detected (Not Detect) Parainfluenza 2 (PCR) Not Detected (Not Detect) Parainfluenza 3 (PCR) Not Detected (Not Detect) Parainfluenza 4 (PCR) Not Detected (Not Detect) RSV (PCR) Not Detected (Not Detect) Entero/Rhino (PCR) Not Detected (Not Detect) 06/01/18 06/01/18 Range/Units 11:56 11:24 Urine Color (Yellow) Urine Clarity (Clear) Urine pH (5.0-8.0) pH Units Ur Specific [place] (1.010-1.025) Urine Protein (Neg-Trace) mg/dL Urine Glucose (UA) (Normal) mg/dL Urine Ketones (Negative) mg/dL Urine Blood (Negative) Urine Nitrite (Negative) Urine Bilirubin (Negative) Urine Urobilinogen (Normal) mg/dL Ur Leukocyte Esterase (Negative) Urine Microscopic RBC (0-3) per hpf Urine Microscopic WBC (0-3) per hpf Ur Squamous Epith Cells (None-Few) per lpf Urine Bacteria (None-Few) per hpf Hyaline Casts (None-Few) per lpf Ur Culture Indicated? (NO) CSF Volume 10.5 mL CSF Appearance Clear (Clear) CSF Color Colorless (Colorless) CSF RBC < 0.002 (0.000 - 0.002) M/mcL CSF Tot Nucleated Cells 19 H* (0-5) TNC/mcL CSF Seg Neutrophils 85.0 % CSF Lymphocytes % 7.0 % CSF Monocytes % 8.0 % CSF Glucose 82 H (40-70) mg/dL CSF Xanth Comm Not Observed (Not Observe) CSF Total Protein 40 (15-45) mg/dL Chlamy pneumoniae PCR (Not Detect) Adenovirus (PCR) (Not Detect) B. pertussis DNA (PCR) (Not Detect) B.parapertussis DNA PCR (Not Detect) Coronavirus OC43 (PCR) (Not Detect) Coronavirus HKU1 (PCR) (Not Detect) Coronavirus 229E (PCR) (Not Detect) Coronavirus NL63 (PCR) (Not Detect) HIV Ag/Ab Combo Qual Nonreactive (Nonreactive) Human Metapneumovir PCR (Not Detect) Influenza A (H1) PCR (Not Detect) Influ A (H1N1/09) PCR (Not Detect) Influenza A (H3) PCR (Not Detect) Influenza A Untype (PCR) (Not Detect) Influenza Type B (PCR) (Not Detect) M.pneumoniae DNA (PCR) (Not Detect) U N.gonorrhoeae DNA PCR (Not Detect) Parainfluenza 1 (PCR) (Not Detect) Parainfluenza 2 (PCR) (Not Detect) Parainfluenza 3 (PCR) (Not Detect) Parainfluenza 4 (PCR) (Not Detect) RSV (PCR) (Not Detect) Entero/Rhino (PCR) (Not Detect) - Impressions Impressions Lumbar Puncture Fluoroscopy 06/01/18 00:00 IMPRESSION: Successful fluoroscopic-guided lumbar puncture. D/ / Corey Leija MD / Corey Leija MD Interpreting Provider: Corey Leija MD Exam - Constitutional Vitals: Temp Pulse Resp BP Pulse Ox 98.7 F 89 14 131/96 97 06/02/18 07:17 06/02/18 07:17 06/02/18 07:17 06/02/18 07:17 06/02/18 07:17 General appearance: average body habitus, cooperative, no acute distress - Head Head exam: Present: atraumatic, normal inspection, normocephalic - Eye Eye exam: Present: EOMI, normal appearance, PERRL Pupils: Present: normal accommodation - ENT ENT exam: Present: mucous membranes moist - Neck Neck exam: Present: full ROM, normal inspection, tenderness (Posterior neck). Absent: meningismus - Respiratory Respiratory exam: Present: CTAB. Absent: rales, respiratory distress, rhonchi, wheezes - Cardiovascular Cardiovascular exam: Present: RRR, +S1, +S2 - GI/Abdominal GI/Abdominal exam: Present: normal bowel sounds, soft. Absent: distended, tenderness - Extremities Exam Extremities exam: Absent: joint swelling, normal inspection (Erythematous/ecchymotic lesion noted to the dorsal aspect of the right foot. Nontender and not warm to touch.), pedal edema, tenderness - Neurological Exam Neurological exam: Present: alert, oriented X3, no focal deficits - Psychiatric Psychiatric exam: Present: normal affect, normal mood - Skin Skin exam: Present: dry, intact, normal color, warm Consult Discharge Plan - Plan Referrals: NONE,PCP [Primary Care Provider] - Prescriptions: RX: Acyclovir [Zovirax] 400 mg PO TID 12 Days #30 tablet Phenytoin ER [Dilantin ER] 100 mg PO TID 30 Days #90 capsule
[2018-06-02 11:35] VITALS: BP 155/79
--- NOTE | 2018-06-02 13:16 | Internal Med Progress Note ---
Hospitalist Progress Note - Encounter Date of Encounter: 06/02/18 Time of Encounter: 10:03 - Subjective Interval History: Patient seen and examined this morning in the center. No acute overnight events. Patient feeling very well. No overnight seizure episodes. Denies any tingling numbness vision disturbance or weakness. Ready to go home. He does n ot want to go to [facility] any more given he is feeling better. - Exam Vitals: Temp Pulse Resp BP Pulse Ox 99.2 F 88 15 155/79 97 06/02/18 11:24 06/02/18 11:24 06/02/18 11:24 06/02/18 11:24 06/02/18 11:24 Exam: General: In mild distress. Respiratory exam: CTAB. no accessory muscle use, rales, rhonchi, wheezes Cardiovascular exam: RRR, +S1, +S2. no murmur, gallop, rubs. GI/Abdominal exam: Non-tender, Non-distended, soft, no peritoneal signs. Extremities exam: no pedal edema, pulses palpable in b/l lower extremities. no calf tenderness Neurological exam: Cranial nerves intact. AO X3. 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 typically has 1 seizure per week. He takes vimpat at home. Also recently had neurostimulator placed. - Meningitis vs encephalitis vs seizures - Head CT unremarkable. CXR and EKG unremarkable - Utox positive for marijuana. - Had LP which showed possible asceptic vs viral meningitis. Pending HSV PCR. No growth in CSF or blood cultures. Viral panel positive for coronavirus - Plan was transferred to [facility] for MRI based on family request and neurology recommendation if he had any further seizures. Transferred process was currently underway. - Neurology and ID following. Continue on Acyclovir. EEG unremarkable. Was called by the nurse that patient had left AMA as he wanted to keep his suboxone appointment today. Couldnt speak to patient as he already left. Will send Acyclovir and Dilatin prescription to pharmacy. He said to nurse he will f/u with his neurologist at [facility]. - Time Spent with Patient Total time spent is greater than 50% in coordination of care (as documented) at patient's floor/unit and/or counseling patient: Internal Medicine: Result - Labs CBC & Chem 7: 06/02/18 04:15 06/02/18 04:15 Labs: Short CBC 06/02/18 Range/Units 04:15 WBC 14.8 H (4.3-11.1) K/mcL Hgb 13.9 D (12.9-16.9) g/dL Hct 40.7 (37.5-50.1) % Plt Count 256 (140-400) K/mcL Neutrophils # 10.7 H (1.6-8.9) K/mcL BMP 06/02/18 04:15 Sodium 139 Potassium 3.5 Chloride 107 Carbon Dioxide 23 BUN 10 Creatinine 0.72 Glucose 115 H Calcium 9.0 Urine 06/01/18 Range/Units 16:45 Urine Color Yellow (Yellow) Urine Clarity Turbid A (Clear) Urine pH 6.0 (5.0-8.0) pH Units Ur Specific [place] Pool 1.028 H (1.010-1.025) Urine Protein Trace (Neg-Trace) mg/dL Urine Glucose (UA) Normal (Normal) mg/dL Consult Discharge Plan - Plan Referrals: NONE,PCP [Primary Care Provider] - (3) Leukocytosis Qualifiers: Leukocytosis type: unspecified Qualified Code(s): D72.829 - Elevated white blood cell count, unspecified (5) Altered mental state Qualifiers: Qualified Code(s): R40.0 - Somnolence
== END 2018-06-02 13:27 | disposition left against medical advice (07) | DRG 51 ==
LOC: 3ANU 21:06 → EMEROOARM 21:06 → 3ANU 06-01 02:41 → SUATTDRO 06-01 05:30
PROVIDERS: ADMIT Pediatrics; ATTEND Internal Medicine

== ENCOUNTER 2018-06-25 14:46 | Inpatient (IN) ==
[~2018-06-25 14:46] MED LIST: Aminoglycoside Consult 1 EACH MC ONE
[2018-06-25] MEDS ORDERED: 0.9 % Sodium Chloride 1,000 ML IVC ONE (15:02)
[2018-06-25] MEDS ORDERED: cefTRIAXone 2,000 MG in Water for inj. (sterile) 20 ML 20 ML IVP ONE (15:06)
[2018-06-25 15:35] LABS: Basophils % 0.2 %; Eosinophils % 0.1 %; Hematocrit 50.7 % (37.5-50.1); Immature Granulocytes % 0.5 % (0-4); Lymphocytes # 0.9 K/mcL (0.6-4.6); Lymphocytes % 8.8 %; Mean Corpuscular HGB Conc 33.5 g/dL (31.6-35.5); Mean Corpuscular Hemoglobin 29.7 pg (28.0-33.3); Mean Corpuscular Volume 88.6 fL (83.0-100.0); Mean Platelet Volume 9.4 fL (9.4-12.4); Monocytes % 9.6 %; Neutrophils # 8.5 K/mcL (1.6-8.9); Platelet Count 335 K/mcL (140-400); Red Blood Count 5.72 M/mcL (4.19-5.50); Red Cell Distribution Width 14.2 % (11.5-14.5); Segmented Neutrophils % 80.8 %
--- NOTE | 2018-06-25 15:36 | Emergency Department Note ---
Disposition Clinical Impression: Rigors, History of meningitis, Neck pain Headache Qualifiers: Headache type: unspecified Headache chronicity pattern: unspecified pattern Intractability: not intractable Qualified Code(s): R51 - Headache Disposition: Admitted As Inpatient Condition: Fair Time of Disposition: 20:52 General Adult HPI - General Chief complaint: ED Seizure Stated complaint: meningitis Time Seen by Provider: 06/25/18 14:53 Source: patient Limitations: no limitations Nursing Notes Reviewed: Yes Vital Signs Reviewed: Yes - History of Present Illness HPI Narrative: 32-year-old male presents from home for evaluation of headache, rigors and chills, neck and back pain. He was recently treated at this facility for aseptic meningitis. His headache, neck pain, and back pain are more severe than at that time. They did improve after discharge. Symptom onset was last night. Worse upon awakening this morning. He is concern for recurrent meningitis. He did have a seizure episode yesterday similar to his typical seizure activity. Patient's headache is generalized. He has midline neck and back pain worse with neck flexion. His vertiginous symptoms worse with movement. His nausea with vomiting. History of remote TBI with seizures typically every week. Approx imately 1 week ago, he had a neurostimulator placed at [facility]. ROS Positive: Nausea, vomiting, chills and rigors, generalized headache, midline neck pain and back pain, vertigo Negative: Subjective fever, diarrhea, constipation, trauma Pain Scale: 8 - Related Data Home Medications Medication Instructions Recorded Confirmed Lacosamide [Vimpat] 150 mg PO Q12H 10/14/17 06/25/18 Buprenorphine HCl/Naloxone HCl 2 each SL DAILY 06/01/18 06/25/18 [Buprenorphin-Naloxon 8-2 mg Sl] FLUoxetine HCl [PROzac] 20 mg PO DAILY 06/25/18 06/25/18 Previous Rx's Medication Instructions Recorded Phenytoin ER [Dilantin ER] 100 mg PO TID 30 Days #90 capsule 06/02/18 Allergies Allergy/AdvReac Type Severity Reaction Status Date / Time diphenhydramine Allergy Hives Verified 06/01/18 16:35 [From Benadryl] mirtazapine [From Remeron] AdvReac Hallucinati Verified 06/01/18 16:35 ng All systems ED: reviewed and negative except as stated. Review of Systems: As Per HPI Past Medical History - Past Medical History Medical history: Reports: hypertension, migraine, seizures Surgical history: Reports: appendectomy, colectomy, orthopedic, other Psychiatric history: Reports: anxiety, ADHD, depression, schizophrenia - Social History Smoking Status: Current every day smoker Smokeless Tobacco Status: No Alcohol use: Reports: none Drug use: Reports: marijuana Physical Exam Vital Signs Reviewed General: Patient is alert, oriented, and in moderate distress from his headache and neck pain. Patient appears ill. Head: atraumatic, normocephalic Eye: normal appearance, PERRL, EOMI, no scleral icterus, no conjunctival injection ENT: mucous membranes moist, normal external ear exam Neck: normal inspection, trachea midline, full ROM Chest: normal inspection, symmetric chest rise Respiratory: Good respiratory effort. Bilateral breath sounds are clear without wheezing, crackles, or rhonchi. Cardiovascular: Regular rate and rhythm. No clicks, rubs, gallops, or murmors. Normal heart sounds. Abdomen: Bowel sounds present normoactive. Abdomen is soft, nondistended, and nontender. No guarding or rebound. No organomegaly noted. Musculoskeletal: Spontaneously moving all extremities. Skin: warm, dry, intact. Neuro: GCS 15. Strength symmetric 5/5 in upper and lower extremity is. Sensation light touch intact in upper and lower extremity is. Positive Kernig. Positive Brudzinski. Psych: Patient's affect is appropriate for situation. - General Limitations: no limitations General appearance: alert, in no apparent distress Course Course Narrative: Patient is tachycardic and afebrile on intake. Warm sepsis workup with likely CSF evaluation. Concern for recurrent meningitis versus other infectious etiology. EKG dated 06/25/18 at 15:09 interpreted as sinus tachycardia with a rate of 105. FL 161, QRS 78, QTc 443. Normal axis. Nonspecific ST-T changes; early repolarization. No compared to EKG for comparison. Serum hematology is unremarkable. Serum chemistries unremarkable. Lumbar puncture was performed without difficulty. Hyperglycemia with no elevated protein or elevation in nucleated cells. Empiric ceftriaxone and vancomycin initiated with CSF results pending. After the vancomycin, patient experienced redness of the skin with pruritus. No hives. Given his allergy to Benadryl which I confirmed as urticaria and closing of the throat, will provide IV Solu-Medrol and duo nebs for inhaled steroids as well. 30 minutes after initiation of this treatment, patient was beginning to feel better in the redness of the skin was clearing. Patient continues to appear ill. This could be a general viral picture however, the remainder of his physical exam and workup does not support pulmonary or urinary infection. Concern still for possible meningitis. He is agreeable to admission with cultures pending. I discussed the above with the admitting hospitalist. He agrees to accept the patient for continued evaluation monitoring with multiple cultures pending. Vital Signs Temperature 98.7 F 06/25/18 14:53 Pulse Rate 123 06/25/18 14:53 Respiratory Rate 18 06/25/18 14:53 Blood Pressure 157/100 06/25/18 14:53 O2 Sat by Pulse Oximetry 97 06/25/18 14:53 Temperature 98.4 F 06/25/18 18:52 Pulse Rate 108 06/25/18 18:52 Respiratory Rate 18 06/25/18 18:52 Blood Pressure 151/85 06/25/18 18:52 O2 Sat by Pulse Oximetry 94 06/25/18 18:52 Oxygen Delivery Oxygen Delivery Room Air Procedures - Lumbar Puncture Consent Obtained: verbal consent, written consent Time Out Performed: Yes Patient Position: left lateral decubitus Skin Prep: Povidone-Iodine 1% Local Anesthetic: lidocaine 1% Amount of anesthesia used (mL): 4 Spinal Needle Gauge: 22G Interspace Used: L4-L5 Fluid Initially Obtained: clear Complications: none Medical Decision Making - Lab Data Result diagrams: 06/25/18 15:20 06/25/18 15:20 Lab Results 06/25/18 06/25/18 06/25/18 Range/Units 15:20 15:20 15:20 WBC 10.5 (4.3-11.1) K/mcL RBC 5.72 H (4.19-5.50) M/mcL Hgb 17.0 H (12.9-16.9) g/dL Hct 50.7 H (37.5-50.1) % MCV 88.6 (83.0-100.0) fL MCH 29.7 (28.0-33.3) pg MCHC 33.5 (31.6-35.5) g/dL RDW 14.2 (11.5-14.5) % Plt Count 335 (140-400) K/mcL MPV 9.4 (9.4-12.4) fL Immature Gran % 0.5 (0-4) % Seg Neutrophils % 80.8 % Lymphocytes % 8.8 % Monocytes % 9.6 % Eosinophils % 0.1 % Basophils % 0.2 % Neutrophils # 8.5 (1.6-8.9) K/mcL Lymphocytes # 0.9 (0.6-4.6) K/mcL Monocytes # 1.0 (0.0-1.3) K/mcL Eosinophils # 0.0 (0.0-0.6) K/mcL Basophils # 0.0 (0.0-0.2) K/mcL PT 11.8 (9.4-12.1) Seconds INR 1.0 APTT 32.1 (26.0-36.0) Seconds Sodium 138 (136-145) mEq/L Potassium 3.9 (3.5-5.1) mEq/L Chloride 101 (98-107) mEq/L Carbon Dioxide 25 (23-29) mEq/L BUN 13 (6-20) mg/dL Creatinine 0.68 L (0.70-1.30) mg/dL Est GFR ( Amer) > 60 (> 60) Est GFR (Non-Af Amer) > 60 (> 60) BUN/Creatinine Ratio 19 (6-26) Glucose 129 H (70-105) mg/dL Calculated Osmolality 288 (280-300) Lactic Acid (0.5-2.2) mmol/L Calcium 10.2 (8.6-10.3) mg/dL Magnesium 1.8 (1.6-2.6) mg/dL Total Bilirubin 0.6 (0.3-1.0) mg/dL Direct Bilirubin 0.1 (0.0-0.2) mg/dL Indirect Bilirubin 0.5 (0.0-1.2) mg/dL AST 22 (13-39) Units/L ALT 30 (7-52) Units/L Alkaline Phosphatase 103 (34-104) Units/L Troponin I < 0.03 (< 0.04) ng/mL Serum Total Protein 7.7 (6.4-8.9) g/dL Albumin 5.0 (3.5-5.7) g/dL Globulin 2.7 (2.4-3.5) g/dL Albumin/Globulin Ratio 1.9 (1.1-2.2) CSF Volume mL CSF Appearance (Clear) CSF Color (Colorless) CSF RBC (0.000 - 0.002) M/mcL CSF Tot Nucleated Cells (0-5) TNC/mcL CSF Glucose (40-70) mg/dL CSF Xanth Comm (Not Observe) CSF Total Protein (15-45) mg/dL 06/25/18 06/25/18 Range/Units 15:20 16:18 WBC (4.3-11.1) K/mcL RBC (4.19-5.50) M/mcL Hgb (12.9-16.9) g/dL Hct (37.5-50.1) % MCV (83.0-100.0) fL MCH (28.0-33.3) pg MCHC (31.6-35.5) g/dL RDW (11.5-14.5) % Plt Count (140-400) K/mcL MPV (9.4-12.4) fL Immature Gran % (0-4) % Seg Neutrophils % % Lymphocytes % % Monocytes % % Eosinophils % % Basophils % % Neutrophils # (1.6-8.9) K/mcL Lymphocytes # (0.6-4.6) K/mcL Monocytes # (0.0-1.3) K/mcL Eosinophils # (0.0-0.6) K/mcL Basophils # (0.0-0.2) K/mcL PT (9.4-12.1) Seconds INR APTT (26.0-36.0) Seconds Sodium (136-145) mEq/L Potassium (3.5-5.1) mEq/L Chloride (98-107) mEq/L Carbon Dioxide (23-29) mEq/L BUN (6-20) mg/dL Creatinine (0.70-1.30) mg/dL Est GFR ( Amer) (> 60) Est GFR (Non-Af Amer) (> 60) BUN/Creatinine Ratio (6-26) Glucose (70-105) mg/dL Calculated Osmolality (280-300) Lactic Acid 0.8 (0.5-2.2) mmol/L Calcium (8.6-10.3) mg/dL Magnesium (1.6-2.6) mg/dL Total Bilirubin (0.3-1.0) mg/dL Direct Bilirubin (0.0-0.2) mg/dL Indirect Bilirubin (0.0-1.2) mg/dL AST (13-39) Units/L ALT (7-52) Units/L Alkaline Phosphatase (34-104) Units/L Troponin I (< 0.04) ng/mL Serum Total Protein (6.4-8.9) g/dL Albumin (3.5-5.7) g/dL Globulin (2.4-3.5) g/dL Albumin/Globulin Ratio (1.1-2.2) CSF Volume 4.0 mL CSF Appearance Clear (Clear) CSF Color Colorless (Colorless) CSF RBC < 0.002 (0.000 - 0.002) M/mcL CSF Tot Nucleated Cells < 3 (0-5) TNC/mcL CSF Glucose 79 H (40-70) mg/dL CSF Xanth Comm Not Observed (Not Observe) CSF Total Protein 38 (15-45) mg/dL Critical Care Time Critical Care Time: Yes Total Critical Care Time: 35 Attestation: 35 minutes managing patient's possible meningitis. Attestation Statement - Attestation Attestation: Patient was seen with resident physician. I reviewed the history, physical, assessment and plan, and agree with the findings. I also personally evaluated this patient and had [id number] time with this patient. 32-year-old male with a history of aseptic meningitis presents emergency Department with same symptoms that brought him him previously. Namely he has had headaches fevers chills or neck stiffness. Patient recently had a neurologic stimulator placed in his neck on the left side. This is secondary to seizures. He did have a seizure yesterday which is typical for him. He has had a difficult time controlling his seizures recently. He comes in today not for that though but because his symptoms are similar to meningitis they had the past. He does note that he was sent home on antibiotics until he does not remember the name. He said he has finished those. Review of systems as above remainder negative. Physical exam vital signs patient's tachycardic but afebrile. ENT is unremarkable. Neck he has had some pain with passive or active flexion. Heart is regular rhythm and rate. Lungs are clear. Abdomen is soft and nontender. Extremities are unremarkable. Neurologically intact without focal deficits. Skin no rashes. No petechia. Psych is normal. ED course. We will do another workup for meningitis. We will start the patient on IV antibiotics. We will do a lumbar puncture. I was available and present for the entirety of the procedure. Written consent was obtained prior to starting. CT scan did not reveal any acute abnormalities of the head. Labs are largely unremarkable. Spinal fluid was clear colorless and did not show abnormalities. I was present for the entirety of the lumbar puncture. Patient continued to feel ill throughout his stay in the emergency Department. Hemodynamically he remained stable. With us not really knowing if this is a recurrence of meningitis or what the etiology of his symptoms are, we felt it best to bring him into the hospital for additional IV antibiotic therapy and treatment as indicated. Patient will be admitted to the hospitalist service for further evaluation and treatment and IV antibiotics. Critical care time was 35 minutes.
[2018-06-25 15:47] LABS: Prothrombin Time 11.8 Seconds (9.4-12.1)
[2018-06-25 15:50] LABS: Activated Partial Thrombo Time 32.1 Seconds (26.0-36.0)
[2018-06-25 16:02] LABS: Alanine Aminotransferase 30 Units/L (7-52); Albumin/Globulin Ratio 1.9 (1.1-2.2); Alkaline Phosphatase 103 Units/L (34-104); Aspartate Amino Transferase 22 Units/L (13-39); BUN/Creatinine Ratio 19 (6-26); Bilirubin,Direct 0.1 mg/dL (0.0-0.2); Bilirubin,Indirect 0.5 mg/dL (0.0-1.2); Bilirubin,Total 0.6 mg/dL (0.3-1.0); Blood Urea Nitrogen 13 mg/dL (6-20); Calcium 10.2 mg/dL (8.6-10.3); Carbon Dioxide 25 mEq/L (23-29); Chloride 101 mEq/L (98-107); Globulin 2.7 g/dL (2.4-3.5); Glucose 129 mg/dL (70-105); Magnesium 1.8 mg/dL (1.6-2.6); Osmolality,Calculated 288 (280-300); Potassium 3.9 mEq/L (3.5-5.1); Sodium 138 mEq/L (136-145); Total Protein 7.7 g/dL (6.4-8.9); Troponin I < 0.03 ng/mL (< 0.04); eGFR For Non-African Americans > 60 (> 60)
[2018-06-25] MEDS ORDERED: *HR* FentaNYL (PF) 100 MCG/2 ML VIAL IVP ONE (16:32)
[2018-06-25] MEDS ORDERED: Ondansetron 4 MG/2 ML VIAL IVP ONE (16:40)
[2018-06-25 16:50] LABS: Appearance,CSF Clear (Clear); Red Blood Cell,CSF < 0.002 M/mcL
[2018-06-25 17:07] LABS: Glucose,CSF 79 mg/dL (40-70); Total Protein,CSF 38 mg/dL (15-45)
[2018-06-25] MEDS ORDERED: Ipratropium/Albuterol Neb 3 ML IH ONE (18:33)
[2018-06-25] MEDS ORDERED: methylPREDNISolone 125 MG/2 ML VIAL IVP ONE (18:33)
[2018-06-25] MEDS ORDERED: Famotidine 20 MG/2 ML VIAL IVP ONE (18:35)
[2018-06-25] MEDS ORDERED: Ketorolac 30 MG/ML VIAL IVP PRN (19:51)
[2018-06-25] MEDS ORDERED: Naloxone 0.4 MG/ML INJ IVP PRN (19:51)
[2018-06-25] MEDS ORDERED: OXYCODONE Oral CONC 10 MG/0.5 ML ORAL.SYG SL PRN ×2 (19:51)
[2018-06-25] MEDS ORDERED: Ondansetron 4 MG/2 ML VIAL IVP PRN (19:51)
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
[2018-06-25] MEDS ORDERED: *HR* LORazepam 2 MG/ML VIAL IVP PRN (21:36)
[2018-06-25 22:07] LABS: Creatine Kinase 142 Units/L (30-223)
[2018-06-25] MEDS: *HR* Heparin 5,000 UNIT/ML VIAL SQ SCH (22:11)
[2018-06-25] MEDS: 0.9 % Sodium Chloride 1,000 ML IVC SCH (22:11)
[2018-06-25 23:38] LABS: Adenovirus Not Detected (Not Detect); Bordetella Pertussis Not Detected (Not Detect); Chlamydophila pneumoniae Not Detected (Not Detect); Coronavirus 229E Not Detected (Not Detect); Coronavirus HKU1 Not Detected (Not Detect); Coronavirus NL63 Not Detected (Not Detect); Coronavirus OC43 Not Detected (Not Detect); Human Metapneumovirus Not Detected (Not Detect); Human Rhinovirus/Enterovirus Not Detected (Not Detect); Influenza A Subtype 2009 H1 Not Detected (Not Detect); Influenza A Untypeable Not Detected (Not Detect); Influenza B Not Detected (Not Detect); Mycoplasma pneumoniae Not Detected (Not Detect); Parainfluenza Virus 1 Not Detected (Not Detect); Parainfluenza Virus 2 Not Detected (Not Detect); Parainfluenza Virus 3 Not Detected (Not Detect); Parainfluenza Virus 4 Not Detected (Not Detect); Respiratory Syncytial Virus Not Detected (Not Detect)
[2018-06-26 01:49] LABS: Bilirubin,Urine Negative (Negative); Blood,Urine Negative (Negative); Clarity,Urine Clear (Clear); Color,Urine Yellow (Yellow); Glucose,Urine (UA) Normal (Normal); Ketones,Urine 80 mg/dL (Negative); Leukocyte Esterase,Urine Negative (Negative); Nitrite,Urine Negative (Negative); Protein,Urine Trace mg/dL (Neg-Trace); Urobilinogen,Urine Normal (Normal)
[2018-06-26] MEDS: cefTRIAXone 2,000 MG in Water for inj. (sterile) 20 ML 20 ML IVPB SCH ×2 (02:40→18:52)
[2018-06-26] MEDS: 0.9 % Sodium Chloride 1,000 ML IVC SCH ×3 (02:40→18:54)
[2018-06-26 07:44] LABS: Basophils % 0.1 %; Hematocrit 44.5 % (37.5-50.1); Immature Granulocytes % 0.6 % (0-4); Lymphocytes # 0.9 K/mcL (0.6-4.6); Lymphocytes % 6.6 %; Mean Corpuscular HGB Conc 32.6 g/dL (31.6-35.5); Mean Corpuscular Hemoglobin 29.7 pg (28.0-33.3); Mean Corpuscular Volume 91.2 fL (83.0-100.0); Mean Platelet Volume 10.1 fL (9.4-12.4); Monocytes # 0.8 K/mcL (0.0-1.3); Monocytes % 5.4 %; Neutrophils # 12.2 K/mcL (1.6-8.9); Platelet Count 280 K/mcL (140-400); Red Blood Count 4.88 M/mcL (4.19-5.50); Red Cell Distribution Width 14.2 % (11.5-14.5); Segmented Neutrophils % 87.3 %
[2018-06-26 07:45] LABS: Hemoglobin 14.5 g/dL (12.9-16.9)
[2018-06-26 07:51] LABS: INR 1.1; Prothrombin Time 12.5 Seconds (9.4-12.1)
[2018-06-26 08:06] LABS: Alanine Aminotransferase 20 Units/L (7-52); Albumin 4.1 g/dL (3.5-5.7); Albumin/Globulin Ratio 1.9 (1.1-2.2); Alkaline Phosphatase 79 Units/L (34-104); Aspartate Amino Transferase 13 Units/L (13-39); BUN/Creatinine Ratio 17 (6-26); Bilirubin,Total 0.4 mg/dL (0.3-1.0); Blood Urea Nitrogen 11 mg/dL (6-20); Carbon Dioxide 24 mEq/L (23-29); Chloride 106 mEq/L (98-107); Globulin 2.2 g/dL (2.4-3.5); Glucose 125 mg/dL (70-105); Osmolality,Calculated 287 (280-300); Potassium 4.3 mEq/L (3.5-5.1); Sodium 138 mEq/L (136-145); Total Protein 6.3 g/dL (6.4-8.9); eGFR For Non-African Americans > 60 (> 60)
[2018-06-26] MEDS ORDERED: BUPRENORPHIN NALOXON SL SCH (09:00)
[2018-06-26] MEDS ORDERED: *HR* Promethazine 25 MG/ML VIAL IVP PRN (09:17)
[2018-06-26] MEDS ORDERED: methylPREDNISolone 125 MG/2 ML VIAL IVP ONE (09:19)
--- NOTE | 2018-06-26 09:22 | Internal Med Progress Note ---
Hospitalist Progress Note - Encounter Date of Encounter: 06/26/18 Time of Encounter: 09:19 - Subjective Interval History: Patient seen and examined at bedside. Pt resting in bed and reports of diffuse headache with nausea. He appears to be in distress and is noted to be diaphoretic. States he only got relief with the pain medications he received in the ER, nothing else has worked after that. He denies any neck pain or stiffness, vision changes, dizziness, fever, or chills at this time. Ten point ROS is negative except as listed above - Exam Vitals: Temp Pulse Resp BP Pulse Ox 98.8 F 67 14 121/70 97 06/26/18 06:46 06/26/18 06:46 06/26/18 06:46 06/26/18 06:46 06/26/18 06:46 Exam: General: Alert and oriented 3, painful distress, diaphoretic Skin:Normal color, no rash, no lesions. HEENT: EOMI, PERRLA, NO neck pain with flexion, no neck tenderness Cardiovascular:Normal S1 & S2, no rubs, murmurs or gallops. No JVD. Pulse regular. Lungs:Normal breath sounds, no wheezes or crackles. Abdomen:Soft, non-tender, no rigidity, normal bowel sounds Extremities:No deformity, no edema or tenderness, no joint swelling or clubbing. Neurological:Normal cognition and motor skills, no focal deficits Rest of the physical exam is non contributory - Assessment and Plan (1) Headache Current Visit: Yes Status: Acute Assessment and Plan: Of unclear etiology likely secondary to acute migraine vs. meningitis, vs. sequela of recent seizures Neurology evaluation with Dr. Loera is requested as per neurology recommendation, pt to receive one dose of Solumedrol 60mg IV and phenergan 12.5mg IV at this time s/p LP on 06/25/18, CSF fluid analysis reviewed, gram stain and culture reports pending continue prophylactic abx given hx of meningitis (Vancomycin, Ceftriaxone, Acyclovir) IV fluids pain control and anti-emetic support as needed (2) Nausea & vomiting Current Visit: No Status: Acute Assessment and Plan: Patient reports 1 week history of nausea and vomiting with inability to keep food down. Continue IV fluids Antiemetics as needed (3) Essential hypertension Current Visit: No Status: Chronic Assessment and Plan: BP within acceptable range continue current management closely monitor BP (4) Seizure disorder Current Visit: No Status: Acute Assessment and Plan: History of seizure disorder status post TBI in 2013 Reported of his last seizure on 06/24/18 and states on average he has a seizure weekly Reports of having a neurostimulator device which was recently implanted and states that it is currently active. Maintain seizure precautions IV ativan for breakthrough seizures continue home meds Neurology follow up has been requested (5) DVT prophylaxis Current Visit: No Status: Acute Assessment and Plan: Heparin SQ - Time Spent with Patient Total time spent is greater than 50% in coordination of care (as documented) at patient's floor/unit and/or counseling patient: Greater than 35 minutes Plan of Care Discussed with: patient (patient/RN/consulting provider) Internal Medicine: Result - Labs CBC & Chem 7: 06/26/18 06:25 06/26/18 06:25 Labs: Short CBC 06/25/18 06/26/18 Range/Units 15:20 06:25 WBC 10.5 14.0 H (4.3-11.1) K/mcL Hgb 17.0 H 14.5 D (12.9-16.9) g/dL Hct 50.7 H 44.5 (37.5-50.1) % Plt Count 335 280 (140-400) K/mcL Neutrophils # 8.5 12.2 H (1.6-8.9) K/mcL BMP 06/25/18 06/26/18 15:20 06:25 Sodium 138 138 Potassium 3.9 4.3 Chloride 101 106 Carbon Dioxide 25 24 BUN 13 11 Creatinine 0.68 L 0.64 L Glucose 129 H 125 H Calcium 10.2 9.0 Cardiac Enzymes 06/25/18 Range/Units 15:20 Troponin I < 0.03 (< 0.04) ng/mL Liver Function 06/25/18 06/26/18 Range/Units 15:20 06:25 Total Bilirubin 0.6 0.4 (0.3-1.0) mg/dL Direct Bilirubin 0.1 (0.0-0.2) mg/dL AST 22 13 (13-39) Units/L ALT 30 20 (7-52) Units/L Alkaline Phosphatase 103 79 (34-104) Units/L Albumin 5.0 4.1 (3.5-5.7) g/dL Urine 06/26/18 Range/Units 00:41 Urine Color Yellow (Yellow) Urine Clarity Clear (Clear) Urine pH 7.0 (5.0-8.0) pH Units Ur Specific [place] 1.030 H (1.010-1.025) Urine Protein Trace (Neg-Trace) mg/dL Urine Glucose (UA) Normal (Normal) mg/dL - ABG Interpretation ABG results: PT/INR, D-dimer PT 12.5 Seconds (9.4-12.1) H 06/26/18 06:25 - Impressions Impressions Chest X-Ray 06/25/18 15:02 IMPRESSION: No acute abnormality. D/ / Paul Steward / Paul Steward Interpreting Provider: Paul Steward Head CT 06/25/18 15:03 IMPRESSION: No acute intracranial abnormality identified. Paranasal sinus disease, especially within the right maxillary sinus. D/ / Jose Rincon MD / Jose Rincon MD Interpreting Provider: Jose Rincon MD Consult Discharge Plan - Plan Referrals: NONE,PCP [Primary Care Provider] - ___ (1) Headache Qualifiers: Headache type: unspecified Headache chronicity pattern: unspecified pattern Intractability: not intractable Qualified Code(s): R51 - Headache (2) Nausea & vomiting Qualifiers: Vomiting type: cyclical vomiting Vomiting Intractability: non-intractable Qualified Code(s): G43.A0 - Cyclical vomiting, not intractable
[2018-06-26] MEDS: FLUoxetine 20 MG CAPSULE PO SCH (09:42)
[2018-06-26] MEDS: Acyclovir 500 MG in D5% in Water 100 ML IVPB SCH ×2 (09:44→18:52)
[2018-06-26] MEDS: *HR* Heparin 5,000 UNIT/ML VIAL SQ SCH ×3 (09:50→23:33)
--- NOTE | 2018-06-26 13:48 | Neurology - Consult Note ---
Date of Encounter: 06/27/18 Time of Encounter: 13:45 Assessment and Plan (1) Headache Status: Acute This patient was been admitted with acute cephalgia, history of chronic migraine headaches as well as seizure and recent aseptic meningitis CSF examination is negative for any sign of meningitis pressure WBC count is normal CT scan of the head is also negative for any acute intracranial abnormality Edition evidence of pansinusitis in particularly right maxillary sinus Could be the contributing factor for his headache may benefit from antibiotics. For acute headaches suggest Solu-Medrol 60 mg every 12 hours along with Phenergan At the same time start him on Depacon IV 800 mg every 8 hours May use Toradol for any breakthrough headaches Would not recommend any narcotics Also benefit from IV fluid administration especially in the context of nausea and vomiting and diarrhea is likely dehydrated that is making his headaches worse Qualifiers: Headache type: unspecified Headache chronicity pattern: unspecified pattern Intractability: not intractable Qualified Code(s): R51 - Headache (2) History of meningitis Status: Acute No evidence of any meningitis on CSF examination (3) Generalized seizure Status: Acute Patient is on Vimpat suggest to continue, we will get an EEG to make sure no inter ictal abnormalities No clinical seizures reported at this time continue on seizure precautions History of Present Illness HPI: Mr. Villarreal is a 32 year old male with past medical history of hypertension, anxiety, schitzophrenia, migraines and seizures secondary to remote history of TBI in 2012 who presents to the ED with complaints of headache, neck and back pain. Patient was recently treated here in early May for aseptic meningitis and reports completing outpatient antibiotic course. Patient was having a lot of headaches described in his whole head and also having some nausea and vomiting because of that he got admitted He also reports 1 week history of watery diarrhea. No noted melena or hematochezia. Headache described as a pressure-like primarily on the top of the head radiating to the back of the head. He also has photophobia and the headaches has improved after narcotic administration. As per records is also complaining of some seizure type of activity , most recent one yesterday, Patient has a spinal tap in the emergency room that shows WBC count 3, protein is 38, and glucose was 79. CT scan of the head was negative for any acute intracranial abnormality but it did shows significant sinusitis predominantly in the right maxillary sinus. Past Med Surg Social Fam HX - Past Medical History Medical history: hypertension, migraine, seizures Additional medical history: pelvic fractures from trauma Psychiatric history: anxiety, ADHD, depression, schizophrenia - Past Surgical History Surgical History: appendectomy, colectomy, orthopedic, other Additional surgical history: Traumatic Brain Injury. Pelvic Surgery. Stimulator - Social History Smoking Status: Current every day smoker Smokeless Tobacco Status: No Alcohol use: none Drug use: marijuana - Family History Father Adopted: No Living Status: Still Living Hx Family Cardiac Disorders: Yes Mother Adopted: No Living Status: Still Living Hx Family GI Disorders: Yes (LIVER DISEASE) Hx Family Endocrine Disorder: Yes (DM TYPE 2) Medications and Allergies Lacosamide [Vimpat] 150 mg PO Q12H 10/14/17 [History] Buprenorphine HCl/Naloxone HCl [Buprenorphin-Naloxon 8-2 mg Sl] 2 each SL DAILY 06/01/18 [History] Phenytoin ER [Dilantin ER] 100 mg PO TID 30 Days #90 capsule 06/02/18 [Rx] FLUoxetine HCl [Prozac] 20 mg PO DAILY 06/25/18 [History] methylPREDNISolone [Medrol] 4 mg PO DAILY 7 Days #21 tablet 06/27/18 [Rx] Allergy/AdvReac Type Severity Reaction Status Date / Time diphenhydramine Allergy Hives Verified 06/01/18 16:35 [From Benadryl] mirtazapine [From Remeron] AdvReac Hallucinati Verified 06/01/18 16:35 ng All Systems: The remainder of the systems were reviewed and are negative Physical Examination - Vital Signs Vital Signs: Initial Vital Signs Temp Pulse Resp BP Pulse Ox 98.7 F 123 18 157/100 97 06/25/18 14:53 06/25/18 14:53 06/25/18 14:53 06/25/18 14:53 06/25/18 14:53 - Exam Exam: GENERAL: Comfortable in no acute distress HEENT: Normal LUNGS: CTA HEART: RRR, S1 S2 Audible, no murmur EXTREMITIES: No Pedal edema. DETAILED NEUROLOGICAL EXAMINATION: MENTAL STATUS: Oriented to person, place, date and situation. Memory: knows the President, Aware of recent events Recent Memory Intact, Attention span is normal Cranial Nerve Examination: CN - II: Visual Acuity, Field of Vision Normal, Fundus examination: No disk edema, Pupils- size shape reaction to light and accommodation: All normal. CN III, IV, : External ocular movements were intact, Pupils were reactive, Nodrooping of the eyelids CN V: Sensation over the face to light touch and pinprick all normal. Corneal reflexes not tested, jaw jerk normal. CN VII: No facial asymmetry, no flattening of nasolabial folds, no difficulty in closing the eyes, no loss of forehead wrinkles, no difficulty in eye-closure, frowning raising eyebrows. CNVIII: No significant hearing loss CN IX, X: Uvula centralized not deviated, Gag reflex: Not tested CN X1: Sternocleidomastoid, trapezius, normal or evidence of any weakness. CN X11: No Dysarthria, no wasting or fibrilation f tongue muscles, no deviation, tongue muscle strength normal. Motor examination: No hypertrophy, tone was normal, power grade 0-5 Upper limbs Proximal- No difficulty in lifting the arms above the head. Distal- No weakness in distal muscles On formal testing 5/5 all over Lower limbs On formal testing 5/5 all over Coordination: [id number] normal. Target pursuit normal finger tapping normal, Rapid alternating moment of wrist normal Sensory system: Superficial sensations- Touch normal. Pain- Pinprick, Temperature all normal, Deep sensation normal, Joint position sense normal. Cortical sensation, Tactile discrimination, localization and extinction all normal. Deep tendon reflexes. Symmetrical bilateral, No evidence of Babinski. No sign of meningeal irritation Gait Examination: Deferred - Constitutional General appearance: comfortable Results - Laboratory Findings CBC and BMP: 06/27/18 06:34 06/27/18 06:34 Abnormal lab findings: Abnormal lab results WBC 14.0 K/mcL (4.3-11.1) H 06/26/18 06:25 RBC 5.72 M/mcL (4.19-5.50) H 06/25/18 15:20 Hgb 17.0 g/dL (12.9-16.9) H 06/25/18 15:20 Hct 50.7 % (37.5-50.1) H 06/25/18 15:20 12.2 K/mcL (1.6-8.9) H 06/26/18 06:25 PT 12.5 Seconds (9.4-12.1) H 06/26/18 06:25 0.64 mg/dL (0.70-1.30) L 06/26/18 06:25 Glucose 125 mg/dL (70-105) H 06/26/18 06:25 6.3 g/dL (6.4-8.9) L 06/26/18 06:25 2.2 g/dL (2.4-3.5) L 06/26/18 06:25 Ur Specific [place] 1.030 (1.010-1.025) H 06/26/18 00:41 80 mg/dL (Negative) H 06/26/18 00:41 79 mg/dL (40-70) H 06/25/18 16:18 - Diagnostic Findings Additional findings: CT scan of the head No acute intracranial abnormality identified. Paranasal sinus disease, especially within the right maxillary sinus. Consult Discharge Plan - Plan Referrals: NONE,PCP [Primary Care Provider] - Prescriptions: methylPREDNISolone [Medrol] 4 mg PO DAILY 7 Days #21 tablet
[2018-06-26] MEDS ORDERED: methylPREDNISolone 60 MG in 0.9 % Sodium Chloride 100 ML IVPB ONE (16:45)
[2018-06-26] MEDS: methylPREDNISolone 125 MG/2 ML VIAL IVP SCH ×2 (18:51→23:33)
[2018-06-26] MEDS ORDERED: Acetaminophen 325 MG TABLET PO PRN (19:25)
[2018-06-27 00:27] LABS: Amphetamine Screen,Urine Negative ng/mL (Cutoff=1000); Barbiturate Screen,Urine Negative ng/mL (Cutoff=200); Benzodiazepines Screen,Urine Negative ng/mL (Cutoff=200); Cannabinoid Screen,Urine Positive ng/mL (Cutoff = 50); Cocaine Screen,Urine Negative ng/mL (Cutoff= 300); Opiate Screen,Urine Negative ng/mL (Cutoff=300); Phencyclidine Screen,Urine Negative ng/mL (Cutoff=25)
[2018-06-27] MEDS ORDERED: *HR* Buprenorphine HCl 2 MG SUBLINGUAL TABLET SL SCH ×2 (01:32→09:00)
[2018-06-27] MEDS: Acyclovir 500 MG in D5% in Water 100 ML IVPB SCH (01:56)
[2018-06-27] MEDS: *HR* Buprenorphine HCl 8 MG TAB.SUBL SL SCH ×2 (02:17→08:48)
--- NOTE | 2018-06-27 03:14 | Event Note ---
Date of Encounter: 06/27/18 Time of Encounter: 00:58 Alerted by patient's nurse JEAN PAUL Ku that patient reports he takes Suboxone but has none to bring in from home. Pt. states he cannot remember if he has any left or what happened to them. States he cannot get his prescription filled until Wednesday or Wednesday and is concerned about withdrawing. Patient states he does not want to take Ativan or other narcotics. Patient took OTC Excedrin without nurse's knowledge. Nurse educated patient that he cannot take her medication without being verified. Pt. was wanting to leave AMA, however nurse talked him out of leaving at this time. I ran an [facility] report on this pt. which shows that the pts. last Rx for Subutex was on 06/02 and he received 56 pills for a 28 day supply which would take him through the month of May. I discussed this case w/Dr. Coburn d/t my concern for pts. withdrawal. Dr. Coburn recommended continuing Subutex while inpatient to avoid withdrawal and put the order in for 8 mg daily. According to [facility], pt. takes 8 mg BID. I went to see the pt. who was resting in bed. I informed the pt. that I had run his OAR[facility] report and that there was a discrepancy in his not having any of the medication left to bring in. I informed the patient that diversion of this drug can result in its discontinuation. Pt. stated that he suffers from seizures and cannot remember why he has no more left. I again informed the pt. of the ramifications of not taking this medication as prescribed, selling it, others taking it, etc. and how it will result in discontinuation of the prescription if reported. Pt. expressed understanding and agreement to what I was telling him. Nurse informed of our conversation and instructed to give ordered dose now and alert me immediately of any adverse changes.
[2018-06-27] MEDS: 0.9 % Sodium Chloride 1,000 ML IVC SCH (03:35)
[2018-06-27] MEDS: cefTRIAXone 2,000 MG in Water for inj. (sterile) 20 ML 20 ML IVPB SCH (03:35)
[2018-06-27 06:49] LABS: Basophils % 0.1 %; Hematocrit 44.9 % (37.5-50.1); Hemoglobin 14.7 g/dL (12.9-16.9); Immature Granulocytes % 0.6 % (0-4); Lymphocytes # 0.7 K/mcL (0.6-4.6); Lymphocytes % 4.6 %; Mean Corpuscular HGB Conc 32.7 g/dL (31.6-35.5); Mean Corpuscular Hemoglobin 29.6 pg (28.0-33.3); Mean Corpuscular Volume 90.3 fL (83.0-100.0); Mean Platelet Volume 9.7 fL (9.4-12.4); Monocytes # 0.8 K/mcL (0.0-1.3); Monocytes % 5.2 %; Neutrophils # 14.3 K/mcL (1.6-8.9); Platelet Count 281 K/mcL (140-400); Red Blood Count 4.97 M/mcL (4.19-5.50); Segmented Neutrophils % 89.5 %
[2018-06-27 07:05] VITALS: BP 145/98
[2018-06-27 07:08] LABS: BUN/Creatinine Ratio 19 (6-26); Blood Urea Nitrogen 13 mg/dL (6-20); Calcium 9.3 mg/dL (8.6-10.3); Carbon Dioxide 24 mEq/L (23-29); Chloride 105 mEq/L (98-107); Glucose 137 mg/dL (70-105); Osmolality,Calculated 290 (280-300); Phosphorous 3.5 mg/dL (2.7-4.5); Sodium 139 mEq/L (136-145); eGFR For Non-African Americans > 60 (> 60)
[2018-06-27] MEDS: methylPREDNISolone 125 MG/2 ML VIAL IVP SCH (08:47)
[2018-06-27] MEDS: *HR* Heparin 5,000 UNIT/ML VIAL SQ SCH (08:47)
[2018-06-27] MEDS: FLUoxetine 20 MG CAPSULE PO SCH (08:48)
[2018-06-27] MEDS ORDERED: methylPREDNISolone 4 MG TABLET PO SCH (09:00)
--- NOTE | 2018-06-27 10:41 | Neurology Progress Note ---
<Daniel Yap - Last Filed: 06/27/18 11:17> Date of Encounter: 06/27/18 Time of Encounter: 10:39 Assessment and Plan (1) Headache Status: Acute This patient was been admitted with acute cephalgia, history of chronic migraine headaches as well as seizure and recent aseptic meningitis CSF examination is negative for any sign of meningitis pressure ,WBC count is normal CT scan of the head is also negative for any acute intracranial abnormality Additional evidence of pansinusitis in particularly right maxillary sinus Could be the contributing factor for his headache may benefit from antibiotics. ID following For acute headaches suggest Solu-Medrol 60 mg every 12 hours along with Phenergan, recommend steroid dose pack. May use Toradol for any breakthrough headaches Would not recommend any narcotics except for home subutex Also benefit from IV fluid administration especially in the context of nausea and vomiting and diarrhea is likely dehydrated that is making his headaches worse Plan - De-escalate abx per primary team and ID - Continue home Vimpat and Phenytoin - Start medrol taper for short course. - Toradol PRN - Supportive care. Qualifiers: Headache type: unspecified Headache chronicity pattern: unspecified pattern Intractability: not intractable Qualified Code(s): R51 - Headache (2) History of meningitis Status: Acute No evidence of any meningitis on CSF examination - Lp in ED showed glucose 79, protein 38, WBC 3 - Afebrile since admission - Headache resolved. - Leukocytosis of 16.0 which is mildly increased but may be a result of steroids - Previously on Acyclovir, ceftriaxone. Stopped At this time, meningitis is not suspected during this admission. He does have a history and was transferred to [place] for Aseptic meningitis earlier this year. (3) Generalized seizure Status: Acute Patient is on Vimpat suggest to continue, we will get an EEG to make sure no inter ictal abnormalities No clinical seizures reported at this time continue on seizure precautions EEG pending Subjective Principal diagnosis: headache Interval history: Patient was seen and examined this morning at bedside. He states that he is feeling much improved. He has no symptoms of headache, nausea, vomiting, fevers, chills and has full ROM in his neck. Overnight events of suboxone needing filled, otherwise unremarkable. Objective - Constitutional Vitals: Temp Pulse Resp BP Pulse Ox 98.3 F 80 16 145/98 96 06/27/18 07:02 06/27/18 07:02 06/27/18 07:02 06/27/18 07:02 06/27/18 07:02 General appearance: Present: cooperative, A&O X 3, pleasant, answers questions appropriately - Head Head exam: Present: atraumatic, normal inspection, normocephalic - Eye Eye exam: Present: EOMI, PERRL - Neurological Exam Sensorimotor examination: Present: intact Motor Examination: Present: grossly full strength in all extremities Motor examination - right side: 5/5: deltoids, biceps, triceps, wrist flexion, wrist extension, sleeve bottom feller, hip flexors, tibialis Anterior, quadriceps, toe extension (EHL), plantarflexion Motor examination - left side: 5/5: deltoids, biceps, triceps, wrist flexion, wrist extension, hip flexors, sleeve bottom feller, quadriceps, tibialis Anterior, toe extension (EHL), plantarflexion Sensation intact: Present: intact Reflexes: Biceps: 2+, Patella: 2+ Mental Status Examination: Present: awake, alert, oriented to person, oriented to place, oriented to time, follows commands appropriately, answers questions appropriately Cranial nerve examination: Present: PERRL, EOMI, sensory to face intact, no dysarthria, hearing is intact symmetrically, soft palate elevates bilaterally upon phonation, flexes SCM and trapezius muscles symmetrically with full power, tongue protrudes midline, no atrophy or facial fasiculations present Results - Laboratory Findings CBC and BMP: 06/27/18 06:34 06/27/18 06:34 Abnormal lab findings: Abnormal lab results WBC 16.0 K/mcL (4.3-11.1) H 06/27/18 06:34 RBC 5.72 M/mcL (4.19-5.50) H 06/25/18 15:20 Hgb 17.0 g/dL (12.9-16.9) H 06/25/18 15:20 Hct 50.7 % (37.5-50.1) H 06/25/18 15:20 14.3 K/mcL (1.6-8.9) H 06/27/18 06:34 PT 12.5 Seconds (9.4-12.1) H 06/26/18 06:25 0.64 mg/dL (0.70-1.30) L 06/26/18 06:25 Glucose 137 mg/dL (70-105) H 06/27/18 06:34 6.3 g/dL (6.4-8.9) L 06/26/18 06:25 2.2 g/dL (2.4-3.5) L 06/26/18 06:25 Ur Specific [place] 1.030 (1.010-1.025) H 06/26/18 00:41 80 mg/dL (Negative) H 06/26/18 00:41 79 mg/dL (40-70) H 06/25/18 16:18 U Marijuana (THC) Screen Positive ng/mL (Cutoff = 50) H 06/26/18 23:41 Consult Discharge Plan - Plan Referrals: NONE,PCP [Primary Care Provider] - Prescriptions: methylPREDNISolone [Medrol] 4 mg PO DAILY 7 Days #21 tablet <Marion Loera I - Last Filed: 06/27/18 15:42> Date of Encounter: 06/27/18 Assessment and Plan (1) Headache Status: Acute Pt was seen and examined, my medical decision was reviewed with the Resident Physician, I agree with the documented findings, disposition and treatment plan, as described except to the extent set forth below. Neurology standpoint patient is stable no sign of any meningismus, no clinical or lab findings to be suggestive of meningitis For his seizures currently he is on Vimpat suggested to continue, discontinue phenytoin She also has a VNS stimulator placed few weeks ago he will be following up with his neurologist at [facility] from neurology standpoint okay to discharge her seizure precautions and driving restrictions for 6 months Marion Loera MD Qualifiers: Headache type: unspecified Headache chronicity pattern: unspecified pattern Intractability: not intractable Qualified Code(s): R51 - Headache (2) History of meningitis Status: Acute (3) Generalized seizure Status: Acute Objective - Constitutional Vitals: Temp Pulse Resp BP Pulse Ox 98.3 F 80 16 145/98 96 06/27/18 07:02 06/27/18 07:02 06/27/18 07:02 06/27/18 07:02 06/27/18 07:02 Results - Laboratory Findings CBC and BMP: 06/27/18 06:34 06/27/18 06:34 Abnormal lab findings: Abnormal lab results WBC 16.0 K/mcL (4.3-11.1) H 06/27/18 06:34 RBC 5.72 M/mcL (4.19-5.50) H 06/25/18 15:20 Hgb 17.0 g/dL (12.9-16.9) H 06/25/18 15:20 Hct 50.7 % (37.5-50.1) H 06/25/18 15:20 14.3 K/mcL (1.6-8.9) H 06/27/18 06:34 PT 12.5 Seconds (9.4-12.1) H 06/26/18 06:25 0.64 mg/dL (0.70-1.30) L 06/26/18 06:25 Glucose 137 mg/dL (70-105) H 06/27/18 06:34 6.3 g/dL (6.4-8.9) L 06/26/18 06:25 2.2 g/dL (2.4-3.5) L 06/26/18 06:25 Ur Specific [place] 1.030 (1.010-1.025) H 06/26/18 00:41 80 mg/dL (Negative) H 06/26/18 00:41 79 mg/dL (40-70) H 06/25/18 16:18 U Marijuana (THC) Screen Positive ng/mL (Cutoff = 50) H 06/26/18 23:41
--- NOTE | 2018-06-27 11:38 | Infectious Disease Consult ---
Infectious Disease-Consult - Encounter Date/Time Date of Encounter: 06/27/18 (q) Time of Encounter: 10:15 - Data of Consult Requesting Physician: Niko Fernandez Primary Care Provider: PCP NONE - HPI HPI: Patient is a 32-year-old male who was admitted to the hospital with a headache on 06/25/18. Infectious disease was consulted on 06/27/18 for history of aseptic meningitis. Patient is a 32-year-old male with a pertinent past medical history of schizophrenia, migraines, and a seizure disorder secondary to history of TBI in 2012. Patient was admitted to the hospital on 05/31/18 after experiencing multiple seizure episodes. At that time patient had leukocytosis and altered mental status raising suspicion for meningitis/encephalitis. Patient was started on vancomycin, ceftriaxone, and acyclovir and was to be transferred to [place], but states he left A instead. He reports that he completed his antibiotic course after discharge. On this admission patient denies frequent seizures stating that his symptoms are better controlled since his neurostimulator was turned on, however he states that for approximately 1 week prior to admission he experienced significant right sided frontotemporal headache extending to his neck which was associated with nausea, vomiting, and diarrhea as well. Due to history of suspected recent meningitis and new onset neurological symptoms patient was admitted to the hospital for further evaluation. On admission he was started on steroids, vancomycin, Rocephin, and Acyclovir empirically. A lumbar puncture was performed and CSF studies were obtained. CSF studies were generally unremarkable. Preliminary cultures from the CSF do not show any white blood cells or bacteria. Blood cultures obtained on admission show no growth to date. Patient's symptoms have subjectively improved as he denies any current headache and states that he is tolerating food by mouth and no longer has nausea or vomiting. A respiratory infectious panel was collected and negative. Imaging studies performed while inpatient reveal right-sided maxillary sinus mucosal thickening with frothy mucus layering the sinus, but otherwise unremarkable. On presentation his white blood cell count was within range, but since starting steroids he has had an increase in leukocytosis without bandemia. He has remained hemodynamically stable and afebrile. Neurology was consulted and evaluated the patient as well and agreed that the CSF examination was negative for any signs of meningitis. Today, the patient is resting comfortably in bed. He states that he feels well and his symptoms have resolved. He does not report any neck stiffness and has full range of motion of his neck. He states that he feels well and wishes to be discharged home today. Patient tried to leave AGAINST MEDICAL ADVICE overnight. He denies any fevers, chills, neck stiffness, chest pain, shortness breath, abdominal pain, current nausea vomiting or diarrhea, dysuria, or hematuria. He does state some subjective pain in the right maxillary region extending cephalad to his head. - ROS Review of Systems: 10 system review of systems performed and negative except as stated in HPI - Results CBC & Chem 7: 06/27/18 06:34 06/27/18 06:34 - Exam Vitals: Temp Pulse Resp BP Pulse Ox 98.3 F 80 16 145/98 96 06/27/18 07:02 06/27/18 07:02 06/27/18 07:02 06/27/18 07:02 06/27/18 07:02 Exam: General: resting comfortably, no acute distress HEENT: head is atraumatic and normocephalic, reports mild tenderness to palpation of right maxillary sinus, pupils are equal and round, EOMI, no intraoral lesions, mucosa moist, external ears and nares patent Neck: full range of motion, no rigidity, no spinal tenderness, no cervical lymphadenopathy, no JVD Chest: symmetrical chest wall rise, no tenderness to palpation Cardiovascular: regular rate and rhythm, no murmurs Respiratory: clear to auscultation bilaterally, no rales, ronchi, or wheezing Abdomen: soft, nontender, no guarding or rigidity Extremities: no cyanosis, clubbing, or edema Neurological: AXO x 3, no obvious focal neurological deficits Psych: appropriate mood and affect Lacosamide [Vimpat] 150 mg PO Q12H 10/14/17 [History] Buprenorphine HCl/Naloxone HCl [Buprenorphin-Naloxon 8-2 mg Sl] 2 each SL DAILY 06/01/18 [History] Phenytoin ER [Dilantin ER] 100 mg PO TID 30 Days #90 capsule 06/02/18 [Rx] FLUoxetine HCl [Prozac] 20 mg PO DAILY 06/25/18 [History] methylPREDNISolone [Medrol] 4 mg PO DAILY 7 Days #21 tablet 06/27/18 [Rx] Allergy/AdvReac Type Severity Reaction Status Date / Time diphenhydramine Allergy Hives Verified 06/01/18 16:35 [From Benadryl] mirtazapine [From Remeron] AdvReac Hallucinati Verified 06/01/18 16:35 ng - Assessment and Plan (1) Headache Status: Acute - 32-year-old male admitted to the hospital with headache and history of aseptic meningitis - Physical examination, ROS, CSF studies, and imaging studies do not suggest underlying encephalitis or meningitis - His vancomycin, rocephin, and acyclovir have been discontinued by neurology Plan: - Agree with neurology regarding discontinuing vancomycin, rocephin, and acyclovir as there is no evidence for encephalitis or meningitis on ROS, physical exam, lab workup including CSF studies, or imaging studies Qualifiers: Headache type: unspecified Headache chronicity pattern: unspecified pattern Intractability: not intractable Qualified Code(s): R51 - Headache SNOMED Code(s): 56570770 (2) Maxillary sinusitis Status: Acute - CT head from 06/25/18 reveals mild to moderate mucosal thickening of the right maxillary sinus with frothy mucus seen layering the right maxillary sinus - Patient reports right maxillary pain extending cephalad to his head - Denies fevers, chills, sore throat, rhinorrhea Plan: - Recommend out patient follow up with PCP, patient may require treatment with oral Augmentin for sinusitis SNOMED Code(s): 50248586 (3) History of meningitis Status: Acute - Recently admitted and due to concern for aseptic meningitis was to be transferred to [place], but states that he left AMA - CSF examination on this admission negative for any infectious process, imaging findings negative for encephalitis, and no ROS or phyical exam findings suggestive for encephalitis or meningitis SNOMED Code(s): 336935550 (4) Leukocytosis Status: Acute -Leukocytosis on second day of admission after starting solumedrol on admission -ROS, physical exam, lab workup, and imaging studies negative for active infection -Suspect leukocytosis from steroid use Qualifiers: Leukocytosis type: unspecified Qualified Code(s): D72.829 - Elevated white blood cell count, unspecified SNOMED Code(s): 272015405, 182182994 Past Med Surg Social Fam HX - Past Medical History Medical history: hypertension, migraine, seizures Additional medical history: pelvic fractures from trauma Psychiatric history: anxiety, ADHD, depression, schizophrenia - Past Surgical History Surgical History: appendectomy, colectomy, orthopedic, other Additional surgical history: Traumatic Brain Injury. Pelvic Surgery. Stimulator - Social History Smoking Status: Current every day smoker Smokeless Tobacco Status: No Alcohol use: none Drug use: marijuana - Family History Father Adopted: No Living Status: Still Living Hx Family Cardiac Disorders: Yes Mother Adopted: No Living Status: Still Living Hx Family GI Disorders: Yes (LIVER DISEASE) Hx Family Endocrine Disorder: Yes (DM TYPE 2) Consult Discharge Plan - Plan Referrals: NONE,PCP [Primary Care Provider] - Prescriptions: methylPREDNISolone [Medrol] 4 mg PO DAILY 7 Days #21 tablet - Attending Attestation I examined this patient and my medical decision-making was reviewed with the Resident Physician. I agree with the documented findings, disposition and treatment plan as described except to the extent set forth below. Patient seen and examined. Patient appears well. Nontoxic. Apparently just signed out AMA. Dissuading for his papers. Patient's physical exam review of system and labs revealed normal signs of infection. He does have maxillary sinusitis. I told him eventually we can treat that if it does not resolve. No further recommendations from infectious disease we will sign off.
--- NOTE | 2018-06-27 12:40 | Discharge Summary ---
- NOTES TO OUTPATIENT PROVIDER Notes to Outpatient Provider: PCP in 5 to 7 days Orders not resulted at time of discharge: Pending orders 06/25/18 15:20 Culture,Blood [BC] Stat 06/25/18 16:18 Culture,CSF [RM] Stat 06/27/18 04:00 Urine tox screen [Drug Screen, Urine] [UCHEM] Routine Date of Encounter: 06/27/18 Time of Encounter: 12:37 - Discharge Diagnosis (1) Headache Priority: Primary Status: Acute Assessment and Plan: -WHITELY initially manged with antibiotic due to pt's recent management at another facility for possible meningitis. - Seen by ID and states presentation unlikely due to meningitis -Managed with supportive fluids, -Pain management as needed -Prophylactic vancomycin and Rocephin started where both discontinued. - CSF negative and blood cultures incubating. - Pt states WHITLEY completely resolved. - Informed pt I would talk to ID and clarify discharge medications. -Pt refusing to be discharged appropriately and he is leaving against medical advise (AMA). Qualifiers: Headache type: unspecified Headache chronicity pattern: unspecified pattern Intractability: not intractable Qualified Code(s): R51 - Headache (2) Nausea & vomiting Priority: Secondary Status: Acute Assessment and Plan: Patient reported 1 week history of nausea and vomiting with inability to keep food down. -Given fluid support and antiemetics as needed - Resolved Qualifiers: Vomiting type: cyclical vomiting Vomiting Intractability: non-intractable Qualified Code(s): G43.A0 - Cyclical vomiting, not intractable (3) Essential hypertension Priority: Secondary Status: Chronic Assessment and Plan: Resume home meds (4) Seizure disorder Priority: Secondary Status: Acute Assessment and Plan: History of seizure disorder status post TBI 2012 currently on Vipmat. Follows neurologist in [place]. Patient reported last seizure was a day prior to admission. Patient has a neuro-stimulator device which was recently implanted and states that it is currently active. - Seen by neurologist and rec continue with home seizure medications - Follow up out pt with primary neurologist. Hospital course: History of present illness: Dr. Coburn Mr. Villarreal is a 32 year old male with past medical history of hypertension, anxiety, schitzophrenia, migraines and seizures secondary to remote history of TBI in 2012 who presents to the ED with complaints of headache, neck and back pain. Patient was recently treated here in early May for aseptic meningitis and reports completing outpatient antibiotic course. He states that he has not felt better since. Currently complains of headache, neck pain and back pain. Also states that he has not been unable to keep any food down to a significant degree due to nausea and vomiting for approximately on week. He also reports 1 week history of watery diarrhea. No noted melena or hematochezia. Headache described as a pressure-like primarily on the top of the head radiating to the back of the head. He states this is different from his typical migraines. Does endorse aggravation with bright lights and improved after narcotic administration here in the hospital. Patient reports midline neck and back pain worse with neck flexion. He does endorse some neck stiffness. He states that he has had generalized arthralgia and chills. Patient continues to have seizures, most recent one yesterday, but cannot tell me how many since his discharge. Patient denies any IV drug use. On arrival patient was afebrile, hypertensive with mild tachycardia in the 110's. Labs were largely unremarkable. CT scan of the head showed no acute intracranial abnormalities. Lumbar puncture was obtained: Spinal fluid was reportedly clear/colorless with preliminary study showing no WBCs, epithelial cells or bacteria. Patient started on vancomycin and ceftriaxone. Discharge discussed with: patient - Time Spent with Patient Total time spent providing and/or coordinating discharge services: Time spent: Greater than 30 minutes - Discharge Medications Prescriptions: New methylPREDNISolone [Medrol] 4 mg PO DAILY 7 Days #21 tablet Continued Lacosamide [Vimpat] 150 mg PO Q12H Buprenorphine HCl/Naloxone HCl [Buprenorphin-Naloxon 8-2 mg Sl] 2 each SL DAILY Phenytoin ER [Dilantin ER] 100 mg PO TID 30 Days #90 capsule FLUoxetine HCl [Prozac] 20 mg PO DAILY Home Medications: Lacosamide [Vimpat] 150 mg PO Q12H 10/14/17 [History] Buprenorphine HCl/Naloxone HCl [Buprenorphin-Naloxon 8-2 mg Sl] 2 each SL DAILY 06/01/18 [History] Phenytoin ER [Dilantin ER] 100 mg PO TID 30 Days #90 capsule 06/02/18 [Rx] FLUoxetine HCl [Prozac] 20 mg PO DAILY 06/25/18 [History] methylPREDNISolone [Medrol] 4 mg PO DAILY 7 Days #21 tablet 06/27/18 [Rx] Allergies/Adverse Reactions: Allergy/AdvReac Type Severity Reaction Status Date / Time diphenhydramine Allergy Hives Verified 06/01/18 16:35 [From Benadryl] mirtazapine [From Remeron] AdvReac Hallucinati Verified 06/01/18 16:35 ng Date of admission: 06/25/18 19:51 Primary care physician: PCP NONE Consults: 06/25/18 21:55 Consult to Neurology [CONS] Routine Consulting Provider: Neurology [facility] Reason for Consult: Concern for meningitis/seizures. Call Completed: No 06/25/18 21:56 Consult to Infectious Diseases [CONS] Routine Consulting Provider: Infectious Disease [facility] Reason for Consult: Concern for aseptic meningitis Call Completed: No 06/27/18 12:21 Consult to Interpret Exam [CONS] Routine Consulting Provider: Marion Loera I Consult to Interpret Exam: Interpret EEG Discharging clinician: Georgina Segura Anticipated date of discharge: 06/27/18 - Constitutional Vitals: Temp Pulse Resp BP Pulse Ox 98.3 F 80 16 145/98 96 06/27/18 07:02 06/27/18 07:02 06/27/18 07:02 06/27/18 07:02 06/27/18 07:02 Exam: . - Head Head exam: Present: atraumatic, normocephalic - Eye Eye exam: Present: PERRL, conjuntiva pink, sclera anicteric Pupils: Present: PERRL - Neck Neck exam general surgery: Present: supple, trachea midline. Absent: lymphadenopathy - Respiratory Respiratory exam: Present: CTAB. Absent: accessory muscle use, rales, rhonchi, wheezes - Cardiovascular Cardiovascular exam: Present: RRR, +S1, +S2. Absent: diastolic murmur, gallop, rubs, systolic murmur - GI/Abdominal GI/Abdominal exam: Present: normal bowel sounds, soft, no peritoneal signs. Absent: distended, tenderness - Extremities Exam Extremities exam: Present: warm, radial pulses palpable and symmetrical. Absent: calf tenderness, cyanotic, pedal edema - Neurological Exam Neurological exam: Present: CN II-XII intact, oriented X3, no focal deficits. Absent: pronater drift, facial droop, speech deficit - Skin Skin exam: Present: dry, intact - Patient Status Disposition: Left Against Medical Advice Condition: Fair - Discharge Instructions Follow Up With: NONE,PCP [Primary Care Provider] -
--- NOTE | 2018-06-27 13:04 | Electrocardiograph Report ---
[place] [id number] Test Date: 2018-06-25 Pat Name: Lenny Villarreal Department: EXAM1 Room: 2NE20 Gender: M Training Development Director: : 1985 Requested By: Hilton Yu Order Number: [id number] Reading MD: Cuco Holden Measurements Intervals [place] Rate: 105 P: -71 WV: 161 QRS: 33 QRSD: 78 T: 51 QT: 335 QTc: 443 Interpretive Statements Ectopic atrial tachycardia, unifocal Electronically Signed On 06-27-2018 13:02:29 EDT by Cuco Holden
== END 2018-06-27 12:55 | disposition left against medical advice (07) | DRG 54 ==
LOC: EMEROOARM 14:46 → 2NENU 14:46 → SUATTDRO 19:51 → 2NENU 21:20
PROVIDERS: ADMIT Student in an Organized Health Care Education/Training Program; ATTEND Internal Medicine